=== PATIENT | male | born 1935 | race Caucasian/White ===

== ENCOUNTER 2016-07-26 22:04 | Inpatient (IN) | payer MEDICARE, OTHER ==
--- NOTE | 2016-07-26 22:19 | ERNOTE ---
Abdominal HPI - Narrative Date of Service: 07/26/16 - General Chief Complaint: Abdominal Pain Time Seen by Provider: 07/26/16 22:17 Source: patient - Immun/Allergies/Home Medications Immunizatons: IMMUNIZATION HX Immunizations Up to Date No History of Influenza Vaccine Yes Hx Pneumococcal Vaccination Yes Allergies/Adverse Reactions: Allergies fenofibrate nanocrystallized [From Tricor] Allergy (Verified 07/26/16 22:13) fenofibrate,micronized [From Tricor] Allergy (Verified 07/26/16 22:13) Iodine and Iodide Containing Produc Allergy (Verified 07/26/16 22:13) niacin [From Niaspan Extended-Release] Allergy (Verified 07/26/16 22:13) IVP Dye Allergy (Uncoded 07/26/16 22:13) Home Medications: HOME MEDICATIONS Allopurinol [Zyloprim] 300 mg PO DAILY 09/04/15 [Last Taken Unknown] Aspirin [Aspirin EC] 81 mg PO DAILY 09/04/15 [Last Taken Unknown] Carvedilol [Coreg] 12.5 mg PO BID 09/04/15 [Last Taken Unknown] Doxazosin Mesylate [Cardura] 4 mg PO HS 09/04/15 [Last Taken Unknown] Levothyroxine Sodium [Synthroid] 75 mcg PO DAILY 09/04/15 [Last Taken Unknown] [place]-3S/Dha/Epa/Fish Oil [[place]-3 Fish Oil 1,200 mg Sfgl] 6 tab PO DAILY [Last Taken Unknown] Valsartan [Diovan] 320 mg PO DAILY 09/04/15 [Last Taken Unknown] amLODIPine BESYLATE [Norvasc] 5 mg PO BID 09/04/15 [Last Taken Unknown] Cholecalciferol (Vitamin D3) [Vitamin D3] 2,000 unit PO DAILY #30 capsule [Last Taken Unknown] Simethicone [Gas-X] 125 mg PO ACHS PRN #120 cap 09/07/15 [Last Taken Unknown] Acetaminophen [Tylenol] 650 mg PO TID PRN 11/01/15 [Last Taken Unknown] - History of Present Illness Narrative: PT STATES HE BEGAN WITH LLQ ABD PAIN ABOUT 1700 TODAY. 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 HE WAS NAUSEATED BUT NO VOMITING UNTIL HE GOT HERE. AFTER VOMITING HERE HE SAYS HIS PAIN IS IMPROVED, NOT GONE. HE SAYS HE WAS ADMITTED HERE TWICE IN THE PAST YEAR , HERE, FOR BOWEL OBSTRUCTION EPISODES AND SAYS THIS SEEMS SIMILAR. NO HX OF ANY FEVER. NO KNOWN CONTACTS. HE LIVES ALONE. HE TRIED 3 , 325 ASA, AND 2 GAS- X TABLETS WITH NO RELIEF. HE LAST ATE ABOUT NOON. HE DOES THINK HE IS A LITTLE MORE BLOATED THAN NORMAL. HE LAST SAW PCP 1 WEEK AGO AND THEY STOPPED HIS K+, AND STARTED A NEW MED, HE IS NOT SURE WHAT BUT THE PHARMACIST SAYS IT IS A WATER PILL. HE CAN NOT SAY WHY THE CHANGES WERE MADE. Timing: constant Quality: moderate, fullness Modifying Factors - (Improves): Present: vomiting Review of Systems - Review of Systems Constitutional: Present: See HPI EYE: Present: no symptoms reported ENT: Present: no symptoms reported Respiratory: Present: no symptoms reported Cardiology: Present: no symptoms reported Gastrointestinal/Abdominal: Present: See HPI, nausea, vomiting, abdominal pain. Absent: constipation Genitourinary: Present: no symptoms reported Musculoskeletal: Present: no symptoms reported Skin: Present: no symptoms reported Neurological: Present: no symptoms reported Endocrine: Present: no symptoms reported Hematologic/Lymphatic: Present: no symptoms reported Psych: Present: no symptoms reported All Other Systems: All systems neg except as marked - Patient's Past Medical History Patient History - Medical: Cataracts, Hypothyroidism, Renal Disease, Rheumatoid Arthritis, Other - PHX OF PANACREATITIS AND SBO. Patient History - Cardiac/Respiratory: Hypertension Patient History - Cancer: No Hx of Cancer Patient History - Surgical Procedures: Appendectomy, Colon Resection, Colonoscopy Patient History - Other: None - Family History Mother Family History - Medical: , Diabetes Type 2 Insulin Dependent Family History - Cardiac/Respiratory: No pertinent hx Father Family History - Medical: , No pertinent hx Family History - Cardiac/Respiratory: CHF - Social History Living Situations: home Abuse History: No History of abuse Psych History: No pertinent hx Does anyone smoke in the home?: No Smoking Status: Former smoker Have you smoked in the past 12 months: No Alcohol Use: none Drug Use: none - Immunizations Immunizations Up to Date: No Hx Pneumococcal Vaccination: Yes History of Influenza Vaccine: Yes Physical Exam - Physical Exam General Appearance: Present: alert, mild distress - NAUSEA AND ABDOMINAL BLOATING WITH PRESSURE PAIN Neck: Present: normal inspection, nontender Respiratory: Present: no respiratory distress, normal breath sounds, no accessory muscle use, chest nontender, lungs clear Cardiovascular/Chest: Present: regular rate, rhythm, no murmur, normal peripheral pulses Gastrointestinal/Abdominal: Present: abnormal bowel sounds - TINKLING, HIGH PITCHED, , distended, guarding - MILDLY IN LLQ. . Absent: rebound Back Exam: Present: normal inspection, normal range of motion, no CVA tenderness , no vertebral tenderness Extremity Exam: Present: normal except - - CHRONIC BILATERAL LOWER LEG PITTING EDEMA , RIGHT > LEFT, WHICH HE SAYS IS NORMAL FOR HIM. Skin Exam: Present: normal color, warm/dry ED Progress - Results and Orders Patient's Lab Results:: I have reviewed the patient's lab results. Results and Orders: WBC = 13.5K, K+ = 3.2, LIPASE = NL, UA WITH S.G. = 1.030 WITH SOME BACT PRESSENT BUT DID NOT TRIGGER AUTOMATIC CULTURE WHICH I WILL ORDER. - Vital Signs Vital Signs: Vital Signs 07/26/16 22:08 Temperature 36.2 C L Pulse Rate 72 Respiratory 20 Rate Blood Pressure 145/74 O2 Sat by Pulse 95 Oximetry - X-Ray X-Ray #1 X-Ray: abdomen - DISTEND BOWEL LOOPS WITH STACKED AIR FLUID LEVEL, NO FREE AIR. SUSPECT SBO Interpretation: Interp. by me X-Ray #2 X-Ray: abdomen Interpretation: Interp. by me - KUB WITH NG TUBE WELL INTO THE STOMACH. - CT/Ultrasound CT/Ultrasound Narrative: CT OF ABD/PELVIS WITH ORAL CONTRAST ( PT ALLERGIC TO IV CONTRAST) = SBO WITH TRANSITIONS IN RLQ SUGGESTING MECHANICAL OBSTRUCTION. NO FREE AIR. - Progress/Reassessment Chief Complaint: Abdominal Pain Progress:: Unchanged - PT HAD SOME VOMITING WITH ORAL CONTRAST SO WAS GIVEN MORE ZOFRAN AND MORPHINE. HE HAS FAIR NG OUTPUT. Plan - Plan Plan: I HAD CALLED DESTINY FINE EARLIER AND SHE ASKED ME TO CONSULT DR STOUT, SURGERY, WHO IS FAMILIAR WITH PT FROM PAST SBO EPISODE. HE REC. DOING A CT WITH CONTRAST AND IF NO COMPLICATIONS ARE EVIDENT HE WOULD BE WILLING TO FOLLOW CONSULT WITH CONSERVATIVE TREATMENT WHICH DID WORK LAST TIME PT HAD SBO. I RELAYED THIS INFORMATION BACK TO DESTINY FINE WHEN THE CT RESULTS RETURNED. Departure - Departure Clinical Impression: Small bowel obstruction Disposition: [facility] Condition: Fair Referrals: Tim Castano MD [Primary Care Provider] -
--- OUTSIDE RECORDS SUMMARY | 2016-07-26 22:29 | XMS REPORT | Continuity of Care Document ---
:1935 Author Organization [facility] ([facility]) Address [place] [address] Phone [phone] Care Team Providers Name Role Phone Tim Castano Primary Care Provider [phone] Source Comments This disclosure is being made pursuant to the Care Everywhere program, applicable federal and state laws, and may not contain all informaitonavailable regarding this patient.[facility] ([facility]) Active Allergies and Adverse Reactions Allergen Noted Date Severity Reactions Comments Iodinated Contrast Media - Oral And Iv 11/27/2015 Angioedema Dye Trichlorex 11/27/2015 OTHER "sore muscles" Current Medications Prescription Sig. Disp. Refills Start Date End Date Status cyanocobalamin (VITAMIN Take 250 mcg by Active B-12) 250 mcg tablet mouth daily. multivitamin Take 1 tablet by Active with minerals ( mouth. Pt. To VITAMIN) tablet take 3 times weekly acetaminophen 650 mg CR Take 650 mg by Active tablet mouth 3 times daily. allopurinol 300 mg tablet Take 300 mg by Active mouth daily. amLODIPine 5 mg tablet Take 5 mg by Active mouth 2 times daily with meals. aspirin 81 mg EC tablet Take 81 mg by Active mouth daily. carvedilol 12.5 mg tablet Take 12.5 mg by Active mouth 2 times daily with meals. cholecalciferol (VITAMIN Take 2,000 Units Active D3) 2,000 unit capsule by mouth daily. doxazosin 4 mg tablet Take 4 mg by Active mouth daily. levothyroxine 75 mcg Take 75 mcg by Active tablet mouth every morning before breakfast. [place]-3 Fatty Acids-Fish Take by mouth Active Oil (FISH OIL) 360-1,200 daily. mg cpDR SIMETHICONE (GAS-X PO) Take by mouth Active before meals and at bedtime. polyethylene Take as directed 4000 mL 0 11/27/2015 Active glycol-electrolyte (NULYTELY) suspension Active Problems Not on file Social History Tobacco Use Types Packs/Day Years Used Date Former Smoker Cigarettes 3 35 Quit: 04/06/1990 Smokeless Tobacco: Never Used Tobacco Cessation:Counseling Given: Yes Comments: Alcohol Use Drinks/Week oz/Week Comments No Last Filed Vital Signs Vital Sign Reading Time Taken Blood Pressure 158/68 11/27/2015 10:05 AM CDT Pulse 67 11/27/2015 10:05 AM CDT Temperature 36.5 C (97.7 F) 11/27/2015 10:05 AM CDT Respiratory Rate - - Height 1.727 m (5' 8") 11/27/2015 10:05 AM CDT Weight 99.1 kg (218 lb 7.6 oz) 11/27/2015 10:05 AM CDT Body Mass Index 33.23 11/27/2015 10:05 AM CDT Oxygen Saturation - - Plan of Care Health Maintenance Due Date Last Done Comments Hepatitis B Vaccine (1 of 3 - Primary Series) 1935 Tdap Vaccine 1944 Lipid Disorder Screening 11/11/1951 Td Vaccine 11/11/1951 Colonoscopy 1983 Zoster Vaccine 1993 Pneumococcal Vaccine (1 of 2 - PCV13) 1998 Influenza Vaccine: Seasonal (#1) 11/27/2015 Results from Last 3 Months Not on file
[2016-07-26] MEDS ORDERED: ONDANSETRON HCL/PF 2 MG/ML VIAL IV ONE (22:52)
[2016-07-26] MEDS ORDERED: MORPHINE SULFATE 2 MG/ML DISP.SYRIN IV ONE (22:54)
[2016-07-26] MEDS ORDERED: MORPHINE SULFATE 2 MG/ML DISP.SYRIN ONE (22:56)
[2016-07-26] MEDS ORDERED: ONDANSETRON HCL/PF 2 MG/ML VIAL ONE (22:56)
[2016-07-26 23:06] LABS: Hematocrit 37.4 % (42.0-52.0); Hemoglobin 12.7 gm/dL (13.5-18.0); Mean Cell Volume 87.6 fl (78-100); Mean Corpuscular Hemoglobin 29.7 pg (27-31); Mean Platelet Volume 9.5 fl (6.0-9.5); Neutrophil % 79.6 % (42-75.0); Platelet Count 214 K/mm3 (150-450); Red Blood Count 4.27 M/mm3 (4.7-6.0); Red Cell Distribution Width 14.9 % (11.5-14.0); White Blood Count 13.8 K/mm3 (4.0-10.5)
[2016-07-26 23:20] LABS: Albumin * 3.2 gm/dl (3.4-5.0); Anion Gap 13.8 mmol/L (6.8-13.8); BUN/Creatinine Ratio 12.6 (9.0-21.6); Bilirubin, Total 0.7 mg/dL (0.0-1.1); Ca. Corrected For Albumin 9.2 mg/dL (8.4-10.2); Calcium * 8.9 mg/dL (7.9-10.9); Carbon Dioxide 23.4 mmol/L (24-32.6); Potassium 3.2 mmol/L (3.4-4.6); Total Protein 6.9 gm/dL (6.2-8.2)
[2016-07-26 23:41] LABS: Urine Bilirubin Negative (NEGATIVE); Urine Blood Negative /ul (NEGATIVE); Urine Ketone Negative (NEGATIVE); Urine Nitrite Negative (NEGATIVE); Urine Protein 30 mg/dL (NEGATIVE); Urine Specific Gravity >=1.030 SP.GR. (1.005-1.030); Urine Urobilinogen Normal (NORMAL)
[2016-07-26] MEDS ORDERED: LIDOCAINE HCL 10 APPL CARTRIDGE ONE (23:50)
[2016-07-26 23:51] LABS: Urine Appearance Clear; Urine Bacteria 3+; Urine Coarse Granular Cast 0-5 /LPF; Urine Color Yellow; Urine Hyaline Cast 0-5 /LPF; Urine RBC None Seen /hpf (0-5); Urine WBC 0-5 /hpf (0-5)
[2016-07-26 23:52] LABS: Urine Mucus Moderate - 2+
[2016-07-27] MEDS ORDERED: DIATRIZOATE MEGLU/DIATRIZO SOD 30 ML BTL ONE (01:34)
[2016-07-27] MEDS ORDERED: MORPHINE SULFATE 2 MG/ML DISP.SYRIN IV ONE (01:44)
[2016-07-27] MEDS ORDERED: MORPHINE SULFATE 2 MG/ML DISP.SYRIN ONE (01:44)
[2016-07-27] MEDS ORDERED: DIATRIZOATE MEGLU/DIATRIZO SOD 30 ML BTL PO ONE (01:48)
[2016-07-27] MEDS ORDERED: ONDANSETRON HCL/PF 2 MG/ML VIAL ONE (02:28)
[2016-07-27] MEDS ORDERED: ONDANSETRON HCL/PF 2 MG/ML VIAL IV ONE (02:29)
--- OUTSIDE RECORDS SUMMARY | 2016-07-27 04:35 | XMS REPORT | Continuity of Care Document ---
:1935 Author Organization [facility] ([facility]) Address [place] [address] Phone [phone] Care Team Providers Name Role Phone Tim Castano Primary Care Provider [phone] Source Comments This disclosure is being made pursuant to the Care Everywhere program, applicable federal and state laws, and may not contain all informaitonavailable regarding this patient.[facility] ([facility]) Active Allergies and Adverse Reactions Allergen Noted [...] Active tablet mouth every morning before breakfast. [place]-3 Fatty Acids-Fish Take by mouth Active Oil [...]
[2016-07-27] MEDS ORDERED: ONDANSETRON HCL/PF 2 MG/ML VIAL IV PRN (05:34)
[2016-07-27] MEDS ORDERED: MORPHINE SULFATE 2 MG/ML DISP.SYRIN IV PRN (05:35)
[2016-07-27] MEDS ORDERED: POTASSIUM CHLORIDE 20 MEQ in DEXTROSE 5%-0.5 NORMAL SALINE 1,000 ML IV PRN (06:17)
--- NOTE | 2016-07-27 07:44 | HP ---
<Massimo Damian - Last Filed: 07/27/16 07:21> Chief Complaint - Chief Complaint Date of Service: 07/27/16 Time of Service: 05:00 Chief Complaint: Abdominal pain History of Present Illness: 80 years old male adm to the hospital with reports of abdominal pain, nausea and vomiting. PMh significant for recurrent small bowel obstruction, hypertension, CKD, crohns disease and gout.Pt stated he had small bowel movement yesterday however that didn't relief his discomfort. 6 months ago he was treated conservatively for small bowel obstruction. In ER CT Abdomen: Consistent with mechanical obstruction, WBC 13.8, hgb 12.7 and K+ 3.2. He was given morphine and zofran for discomfort and had moderate relief. Will adm and do conservative management , NGT to LIS, protonix, pain control and antiemetics. Dr Castorena consulted if s/s not well management with initial treatment approach. Plan of cared discussed with pt he verbalized understanding and agrees. - Patient's Past Medical History Patient History - Medical: Cataracts, Hypothyroidism, Renal Disease, Rheumatoid Arthritis, Other - crohns disease, Gout Patient History - Cardiac/Respiratory: Hypertension, Hyperlipidemia Patient History - Cancer: No Hx of Cancer Patient History - Surgical Procedures: Appendectomy, Colon Resection - x2 lyse of adhesion x2, Colonoscopy, Other Patient History - Other: None - Family History Mother Family History - Medical: , Diabetes Type 2 Insulin Dependent Family History - Cardiac/Respiratory: No pertinent hx Father Family History - Medical: , No pertinent hx Family History - Cardiac/Respiratory: CHF - Social History Living Situations: alone Abuse History: No History of abuse Psych History: No pertinent hx Does anyone smoke in the home?: No Smoking Status: Former smoker Have you smoked in the past 12 months: No Smoking Stop Date: 04/28/89 Alcohol Use: none Drug Use: none - Immunizations Immunizations Up to Date: No Hx Pneumococcal Vaccination: Yes History of Influenza Vaccine: Yes Review Of Systems (GEN) - Review of Systems Generalized/Overall Review: Present: No Symptoms Reported EENTM: Present: No Symptoms Reported Respiratory: Present: No Symptoms Reported Cardiac: Present: No Symptoms Reported Abdominal: Present: Nausea, Vomiting, Abdominal Pain Genitourinary: Present: No Symptoms Reported Musculoskeletal: Present: No Symptoms Reported Neurological: Present: No Symptoms Reported Skin: Present: No Symptoms Reported Endocrine: Present: No Symptoms Reported Allergies/Adverse Reactions: Allergies Allergy/AdvReac Type Severity Reaction Status Date / Time fenofibrate nanocrystallized Allergy Verified 07/27/16 05:32 [From Tricor] fenofibrate,micronized Allergy Verified 07/27/16 05:32 [From Tricor] Iodine and Iodide Containing Allergy Verified 07/27/16 05:32 Produc niacin Allergy Verified 07/27/16 05:32 [From Niaspan Extended-Release] IVP Dye Allergy Uncoded 07/27/16 05:32 Home Medications: HOME MEDICATIONS Allopurinol [Zyloprim] 300 mg PO DAILY 09/04/15 [Last Taken Unknown] Aspirin [Aspirin EC] 81 mg PO DAILY 09/04/15 [Last Taken Unknown] Carvedilol [Coreg] 12.5 mg PO BID 09/04/15 [Last Taken Unknown] Doxazosin Mesylate [Cardura] 4 mg PO HS 09/04/15 [Last Taken Unknown] Levothyroxine Sodium [Synthroid] 75 mcg PO DAILY 09/04/15 [Last Taken Unknown] [place]-3S/Dha/Epa/Fish Oil [[place]-3 Fish Oil 1,200 mg Sfgl] 6 tab PO DAILY [Last Taken Unknown] Valsartan [Diovan] 320 mg PO DAILY 09/04/15 [Last Taken Unknown] amLODIPine BESYLATE [Norvasc] 5 mg PO BID 09/04/15 [Last Taken Unknown] Cholecalciferol (Vitamin D3) [Vitamin D3] 2,000 unit PO DAILY #30 capsule [Last Taken Unknown] Simethicone [Gas-X] 125 mg PO ACHS PRN #120 cap 09/07/15 [Last Taken Unknown] Acetaminophen [Tylenol] 650 mg PO TID PRN 11/01/15 [Last Taken Unknown] Cyanocobalamin (Vitamin B-12) [Vitamin B-12] 2,000 mcg PO DAILY 07/27/16 [Last Taken Unknown] Spironolactone [Aldactone] 12.5 mg PO DAILY 07/27/16 [Last Taken Unknown] Exam - Exam Vital Signs: Vital Signs - Last Taken Temp 36.5 C 07/27/16 05:05 Pulse 66 07/27/16 05:05 Resp 20 07/27/16 05:05 BP 147/76 07/27/16 05:05 Pulse Ox 96 07/27/16 05:05 Constitutional: Present: Alert, Oriented x3, Cooperative, Well developed, No distress, Elderly, Obese ENT Exam: Present: moist mucous membranes Eye Exam: 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 Neck: Present: full range of motion Back Exam: Present: normal inspection Breasts: Present: Exam deferred Respiratory: Present: chest non-tender, normal breath sounds, no respiratory distress, no accessory muscle use Cardiovascular/Chest: Present: normal peripheral pulses, regular rate, rhythm, no chest tenderness Peripheral Pulses: dorsalis-pedis (R): 3+, dorsalis-pedis (L): 3+ Abdomen: Present: Normal bowel sounds, no rebound tenderness, distended /Rectal: Present: Exam deferred Extremity: Present: normal range of motion Skin Exam: Present: normal color, warm/dry Lymphatic: Present: no adenopathy Neurologic: Present: oriented x 3 Appearance: Present: appropriate appearance Eye contact: Present: cooperative Thoughts: Present: normal thought pattern Diagnostic Studies: Laboratory Results WBC 13.8 K/mm3 (4.0-10.5) H 07/26/16 23:00 RBC 4.27 M/mm3 (4.7-6.0) L 07/26/16 23:00 Hgb 12.7 gm/dL (13.5-18.0) L 07/26/16 23:00 Hct 37.4 % (42.0-52.0) L 07/26/16 23:00 MCV 87.6 fl (78-100) 07/26/16 23:00 MCH 29.7 pg (27-31) 07/26/16 23:00 MCHC 34.0 g/dl (32-36) 07/26/16 23:00 RDW 14.9 % (11.5-14.0) H 07/26/16 23:00 Plt Count 214 K/mm3 (150-450) 07/26/16 23:00 MPV 9.5 fl (6.0-9.5) 07/26/16 23:00 Immature Gran % (Auto) 0.40 % (0.001-0.429) 07/26/16 23:00 Immature Gran # (Auto) 0.05 K/mm3 (0.000-0.0310) H 07/26/16 23:00 Neutrophils % 79.6 % (42-75.0) H 07/26/16 23:00 Lymphocytes % 11.0 % (20-51) L 07/26/16 23:00 Monocytes % 7.1 % (0.0-9) 07/26/16 23:00 Eosinophils % 1.5 % (0.0-3.0) 07/26/16 23:00 Basophils % 0.4 % (0.0-1.0) 07/26/16 23:00 Nucleated RBC % 0.0 k/mm3 (0-1) 07/26/16 23:00 Neutrophils # 11.0 K/mm3 (1.3-6.0) H 07/26/16 23:00 Lymphocytes # 1.5 k/mm3 (1.5-3.5) 07/26/16 23:00 Monocytes # 1.0 k/mm3 (0.0-1.0) 07/26/16 23:00 Eosinophils # 0.2 k/mm3 (0.0-0.7) 07/26/16 23:00 Absolute Basophils 0.1 k/mm3 (0.0-0.1) 07/26/16 23:00 Sodium 140 mmol/L (132-142) 07/26/16 23:00 Plasma Sodium 141 mmol/L (130-142) 07/26/16 23:00 Potassium 3.2 mmol/L (3.4-4.6) L 07/26/16 23:00 Chloride 106 mmol/L (97-106) 07/26/16 23:00 Carbon Dioxide 23.4 mmol/L (24-32.6) L 07/26/16 23:00 Anion Gap 13.8 mmol/L (6.8-13.8) 07/26/16 23:00 BUN 14 mg/dL (6-23) 07/26/16 23:00 Creatinine 1.11 mg/dL (0.4-1.4) 07/26/16 23:00 Est GFR (Non-Af Amer) 67 mL/min (60-130) 07/26/16 23:00 BUN/Creatinine Ratio 12.6 (9.0-21.6) 07/26/16 23:00 Random Glucose 144 mg/dL (70-110) H 07/26/16 23:00 Calcium 8.9 mg/dL (7.9-10.9) 07/26/16 23:00 Calcium Adj for Albumin 9.2 mg/dL (8.4-10.2) 07/26/16 23:00 Total Bilirubin 0.7 mg/dL (0.0-1.1) 07/26/16 23:00 AST 22 U/L (0-48) 07/26/16 23:00 ALT 23 U/L (19-67) 07/26/16 23:00 Alkaline Phosphatase 66 U/L (50-170) 07/26/16 23:00 Total Protein 6.9 gm/dL (6.2-8.2) 07/26/16 23:00 Albumin 3.2 gm/dl (3.4-5.0) L 07/26/16 23:00 Lipase 154 U/L (73-393) 07/26/16 23:00 Urine Color Yellow 07/26/16 23:29 Urine Appearance Clear 07/26/16 23:29 Urine pH 6.0 pH (5.0-7.0) 07/26/16 23:29 Ur Specific [place] >=1.030 SP.GR. (1.005-1.030) 07/26/16 23:29 Urine Protein 30 mg/dL (NEGATIVE) H 07/26/16 23:29 Urine Glucose (UA) Negative mg/dL (NEGATIVE) 07/26/16 23:29 Urine Ketones Negative mg/dL (NEGATIVE) 07/26/16 23:29 Urine Blood Negative /ul (NEGATIVE) 07/26/16 23:29 Urine Nitrate Negative (NEGATIVE) 07/26/16 23:29 Urine Bilirubin Negative mg/dl (NEGATIVE) 07/26/16 23:29 Prot Sulfosalicylic Acd 1+ mg/dL (0) 07/26/16 23:29 Urine Urobilinogen Normal EU/dl (NORMAL) 07/26/16 23:29 Ur Leukocyte Esterase Negative /ul (NEGATIVE) 07/26/16 23:29 Urine RBC None seen /hpf (0-5) 07/26/16 23:29 Urine WBC 0-5 /hpf (0-5) 07/26/16 23:29 Ur Epithelial Cells Trace /hpf (0-5) 07/26/16 23:29 Urine Bacteria 3+ (NONE) H 07/26/16 23:29 Hyaline Casts 0-5 /LPF (NONE) H 07/26/16 23:29 Coarse Granular Casts 0-5 /LPF (NONE) H 07/26/16 23:29 Urine Mucus Moderate - 2+ (NONE) H 07/26/16 23:29 Urine Culture Comments No culture indicated 07/26/16 23:29 Assessment/Plan - Narrative Narrative: Recurrent small bowel obstruction- secondary to multiple abdominal surgery and history of crohns disease October 2015 S/P partial small bowel obstruction that resolved with conservative management. NGT to LIS GI ppx: protonix Zofran and morphine PRN Keep NPO and Dr Castorena was consulted from ER Continue with IVF and supplemented potassium Last bowel movement 07/26/16 Hypertension-stable On adm BP 118/68 continue to monitor Vital signs Crohns Disease Plan same as #1 Abdominal pain Plan same as #1 Nausea and vomiting Zofran and keep NPO Code status: DNR VTE ppx: SCD and ambulate GI ppx : Protonix Anticipate discharge home 1-3 days Time 40 minutes and previous records reviewed. - Assessment/Plan (1) Small bowel obstruction Problem: Acute (2) Crohns disease Problem: Chronic (3) HTN (hypertension) Problem: Chronic (4) Hyperlipidemia Problem: Chronic <Natanael Park - Last Filed: 07/27/16 10:28> Immunizations: IMMUNIZATION HX Immunizations Up to Date No History of Influenza Vaccine Yes Hx Pneumococcal Vaccination Yes Exam - Exam Vital Signs: Vital Signs - Last Taken Temp 36.5 C 07/27/16 05:05 Pulse 66 07/27/16 05:05 Resp 20 07/27/16 05:05 BP 147/76 07/27/16 05:05 Pulse Ox 96 07/27/16 05:05 Diagnostic Studies: Laboratory Results WBC 13.8 K/mm3 (4.0-10.5) H 07/26/16 23:00 RBC 4.27 M/mm3 (4.7-6.0) L 07/26/16 23:00 Hgb 12.7 gm/dL (13.5-18.0) L 07/26/16 23:00 Hct 37.4 % (42.0-52.0) L 07/26/16 23:00 MCV 87.6 fl (78-100) 07/26/16 23:00 MCH 29.7 pg (27-31) 07/26/16 23:00 MCHC 34.0 g/dl (32-36) 07/26/16 23:00 RDW 14.9 % (11.5-14.0) H 07/26/16 23:00 Plt Count 214 K/mm3 (150-450) 07/26/16 23:00 MPV 9.5 fl (6.0-9.5) 07/26/16 23:00 Immature Gran % (Auto) 0.40 % (0.001-0.429) 07/26/16 23:00 Immature Gran # (Auto) 0.05 K/mm3 (0.000-0.0310) H 07/26/16 23:00 Neutrophils % 79.6 % (42-75.0) H 07/26/16 23:00 Lymphocytes % 11.0 % (20-51) L 07/26/16 23:00 Monocytes % 7.1 % (0.0-9) 07/26/16 23:00 Eosinophils % 1.5 % (0.0-3.0) 07/26/16 23:00 Basophils % 0.4 % (0.0-1.0) 07/26/16 23:00 Nucleated RBC % 0.0 k/mm3 (0-1) 07/26/16 23:00 Neutrophils # 11.0 K/mm3 (1.3-6.0) H 07/26/16 23:00 Lymphocytes # 1.5 k/mm3 (1.5-3.5) 07/26/16 23:00 Monocytes # 1.0 k/mm3 (0.0-1.0) 07/26/16 23:00 Eosinophils # 0.2 k/mm3 (0.0-0.7) 07/26/16 23:00 Absolute Basophils 0.1 k/mm3 (0.0-0.1) 07/26/16 23:00 Sodium 140 mmol/L (132-142) 07/26/16 23:00 Plasma Sodium 141 mmol/L (130-142) 07/26/16 23:00 Potassium 3.2 mmol/L (3.4-4.6) L 07/26/16 23:00 Chloride 106 mmol/L (97-106) 07/26/16 23:00 Carbon Dioxide 23.4 mmol/L (24-32.6) L 07/26/16 23:00 Anion Gap 13.8 mmol/L (6.8-13.8) 07/26/16 23:00 BUN 14 mg/dL (6-23) 07/26/16 23:00 Creatinine 1.11 mg/dL (0.4-1.4) 07/26/16 23:00 Est GFR (Non-Af Amer) 67 mL/min (60-130) 07/26/16 23:00 BUN/Creatinine Ratio 12.6 (9.0-21.6) 07/26/16 23:00 Random Glucose 144 mg/dL (70-110) H 07/26/16 23:00 Calcium 8.9 mg/dL (7.9-10.9) 07/26/16 23:00 Calcium Adj for Albumin 9.2 mg/dL (8.4-10.2) 07/26/16 23:00 Total Bilirubin 0.7 mg/dL (0.0-1.1) 07/26/16 23:00 AST 22 U/L (0-48) 07/26/16 23:00 ALT 23 U/L (19-67) 07/26/16 23:00 Alkaline Phosphatase 66 U/L (50-170) 07/26/16 23:00 Total Protein 6.9 gm/dL (6.2-8.2) 07/26/16 23:00 Albumin 3.2 gm/dl (3.4-5.0) L 07/26/16 23:00 Lipase 154 U/L (73-393) 07/26/16 23:00 Urine Color Yellow 07/26/16 23:29 Urine Appearance Clear 07/26/16 23:29 Urine pH 6.0 pH (5.0-7.0) 07/26/16 23:29 Ur Specific [place] >=1.030 SP.GR. (1.005-1.030) 07/26/16 23:29 Urine Protein 30 mg/dL (NEGATIVE) H 07/26/16 23:29 Urine Glucose (UA) Negative mg/dL (NEGATIVE) 07/26/16 23:29 Urine Ketones Negative mg/dL (NEGATIVE) 07/26/16 23:29 Urine Blood Negative /ul (NEGATIVE) 07/26/16 23:29 Urine Nitrate Negative (NEGATIVE) 07/26/16 23: Urine Bilirubin Negative mg/dl (NEGATIVE) 07/26/16 23:29 Prot Sulfosalicylic Acd 1+ mg/dL (0) 07/26/16 23:29 Urine Urobilinogen Normal EU/dl (NORMAL) 07/26/16 23:29 Ur Leukocyte Esterase Negative /ul (NEGATIVE) 07/26/16 23:29 Urine RBC None seen /hpf (0-5) 07/26/16 23:29 Urine WBC 0-5 /hpf (0-5) 07/26/16 23:29 Ur Epithelial Cells Trace /hpf (0-5) 07/26/16 23:29 Urine Bacteria 3+ (NONE) H 07/26/16 23:29 Hyaline Casts 0-5 /LPF (NONE) H 07/26/16 23:29 Coarse Granular Casts 0-5 /LPF (NONE) H 07/26/16 23:29 Urine Mucus Moderate - 2+ (NONE) H 07/26/16 23:29 Urine Culture Comments No culture indicated 07/26/16 23:29 Assessment/Plan - Narrative Narrative: Record reviewed, patient examined. The patient is much more comfortable with his NG tube. We will follow labs, and continue with the NG for the time being. He expresses no additional needs at the present time. I directed all of the nurse practitioner's care for this patient.
[2016-07-27] MEDS: PANTOPRAZOLE SODIUM 40 MG in NORMAL SALINE 100 ML IV SCH (07:55)
[2016-07-27] MEDS ORDERED: POTASSIUM CHLORIDE 20 MEQ in DEXTROSE 5%-0.5 NORMAL SALINE 1,000 ML IV SCH (08:30)
[2016-07-27] MEDS: MORPHINE SULFATE 2 MG/ML DISP.SYRIN IV PRN ×4 (09:05→20:44)
[2016-07-27] MEDS: POTASSIUM CHLORIDE 40 MEQ in DEXTROSE 5%-0.5 NORMAL SALINE 1,000 ML IV SCH ×2 (09:46→17:34)
[2016-07-28] MEDS: MORPHINE SULFATE 2 MG/ML DISP.SYRIN IV PRN (00:12)
[2016-07-28] MEDS: POTASSIUM CHLORIDE 40 MEQ in DEXTROSE 5%-0.5 NORMAL SALINE 1,000 ML IV SCH ×3 (01:39→18:50)
[2016-07-28 06:06] LABS: Hematocrit 34.4 % (42.0-52.0); Hemoglobin 11.2 gm/dL (13.5-18.0); Mean Cell Volume 91.2 fl (78-100); Mean Corpuscular Hemoglobin 29.7 pg (27-31); Mean Corpuscular Hgb Conc 32.6 g/dl (32-36); Mean Platelet Volume 10.1 fl (6.0-9.5); Neutrophil # 6.1 K/mm3 (1.3-6.0); Neutrophil % 63.3 % (42-75.0); Platelet Count 193 K/mm3 (150-450); Red Blood Count 3.77 M/mm3 (4.7-6.0); Red Cell Distribution Width 15.6 % (11.5-14.0); White Blood Count 9.7 K/mm3 (4.0-10.5)
[2016-07-28 06:24] LABS: Albumin * 2.7 gm/dl (3.4-5.0); Anion Gap 12.4 mmol/L (6.8-13.8); BUN/Creatinine Ratio 10.9 (9.0-21.6); Bilirubin, Total 0.6 mg/dL (0.0-1.1); Ca. Corrected For Albumin 8.8 mg/dL (8.4-10.2); Calcium * 8.1 mg/dL (7.9-10.9); Carbon Dioxide 25.6 mmol/L (24-32.6); Total Protein 6.2 gm/dL (6.2-8.2)
[2016-07-28] MEDS: PANTOPRAZOLE SODIUM 40 MG in NORMAL SALINE 100 ML IV SCH (07:42)
--- NOTE | 2016-07-28 11:28 | PN ---
Subjective - Date and Time Seen Date: 07/28/16 Time: 07:10 Subjective Narrative: Passing gas per rectum. No abdominal pain or distension. No nausea. Objective - Review of Systems Generalized/Overall Review: Reports: No Symptoms Reported EENTM: Reports: No Symptoms Reported Respiratory: Reports: No Symptoms Reported Cardiac: Reports: No Symptoms Reported Abdominal: Reports: No Symptoms Reported Genitourinary Symptoms: Reports: No Symptoms Reported Musculoskeletal Complaints: Reports: No Symptoms Reported Neurological: Reports: No Symptoms Reported Skin: Reports: No Symptoms Reported Endocrine: Reports: No Symptoms Reported Misc: All systems neg except as marked - Vitals Vitals: Last Vital Signs Selected Entries 07/28/16 06:49 Temperature 37 C Temperature Oral Source Pulse Rate 82 Respiratory 20 Rate Blood Pressure 144/58 Blood Pressure Supine Position O2 Sat by Pulse 92 Oximetry Oxygen Delivery Room Air Method Oxygen Flow 0 Rate - Abnormal Lab Findings Abnormal Lab Findings: Abnormal Lab Results 07/28/16 07/28/16 Range/Units 05:15 05:15 RBC 3.77 L (4.7-6.0) M/mm3 Hgb 11.2 L (13.5-18.0) gm/dL Hct 34.4 L (42.0-52.0) % RDW 15.6 H (11.5-14.0) % MPV 10.1 H (6.0-9.5) fl Immature Gran # (Auto) 0.04 H (0.000-0.0310) K/mm3 Monocytes % 11.0 H (0.0-9) % Neutrophils # 6.1 H (1.3-6.0) K/mm3 Monocytes # 1.1 H (0.0-1.0) k/mm3 Chloride 108 H (97-106) mmol/L Random Glucose 117 H (70-110) mg/dL ALT 18 L (19-67) U/L Albumin 2.7 L (3.4-5.0) gm/dl - Exam Constitutional: Present: Alert, Oriented x3, Cooperative, Well developed, Well nourished, No distress ENT Exam: Present: normal ENT inspection, hard of hearing Neck: Present: normal inspection Respiratory: Present: lungs clear, no respiratory distress Cardiovascular/Chest: Present: normal peripheral pulses, regular rate, rhythm, no murmur Abdomen: Present: Normal bowel sounds, soft, nontender, nondistended, no rebound tenderness, no hepatospenomegaly, no masses Extremity: Present: normal inspection, no pedal edema Skin Exam: Present: normal color, warm/dry, no cyanosis Neurologic: Present: alert, oriented x 3 Appearance: Present: appropriate appearance, appropriate insight, neat Eye contact: Present: cooperative, good eye contact, normal speech Thoughts: Present: normal thought pattern Assessment/Plan Plan Narrative: D/C NG. Clear liquids. Ambulate. Follow labs. - Problems/Diagnosis (1) Small bowel obstruction Problem: Acute (2) Crohns disease Problem: Chronic (3) HTN (hypertension) Problem: Chronic Qualifiers: Hypertension type: essential hypertension Qualified Code(s): I10 - Essential (primary) hypertension (4) Hyperlipidemia Problem: Chronic
[2016-07-28] MEDS: DEXTROSE 5%-0.5 NORMAL SALINE 1,000 ML IV PRN (18:18)
[2016-07-29] MEDS: DEXTROSE 5%-0.5 NORMAL SALINE 1,000 ML IV PRN ×3 (02:23→20:23)
[2016-07-29] MEDS ORDERED: ACETAMINOPHEN 325 MG TABLET PO PRN (07:12)
[2016-07-29] MEDS ORDERED: SIMETHICONE 80 MG TAB.CHEW PO PRN (07:12)
[2016-07-29] MEDS: PANTOPRAZOLE SODIUM 40 MG in NORMAL SALINE 100 ML IV SCH (07:42)
[2016-07-29] MEDS: LEVOTHYROXINE SODIUM 75 MCG TABLET PO SCH (07:46)
[2016-07-29] MEDS ORDERED: [UNRECOGNIZED DRUG - OTHER] PO SCH (09:00)
[2016-07-29] MEDS ORDERED: SPIRONOLACTONE 25 MG TABLET PO SCH (09:00)
[2016-07-29] MEDS ORDERED: FISH OIL PO SCH (09:00)
[2016-07-29 09:28] LABS: Magnesium 1.5 mg/dL (1.2-2.8); Phosphorus 2.2 mg/dL (2.2-4.2)
[2016-07-29] MEDS: amLODIPine BESYLATE 5 MG TABLET PO SCH ×2 (09:28→20:21)
[2016-07-29] MEDS: LOSARTAN POTASSIUM 50 MG TABLET PO SCH (09:28)
[2016-07-29] MEDS: CARVEDILOL 12.5 MG TABLET PO SCH ×2 (09:29→20:20)
[2016-07-29] MEDS: ALLOPURINOL 300 MG TABLET PO SCH (09:29)
--- NOTE | 2016-07-29 13:16 | PN ---
Subjective - Date and Time Seen Date: 07/29/16 Time: 13:15 Subjective Narrative: patient doing better. NG tube out on 07/28/16. On clear liquids which he is tolerating well. Passing gas. Objective - Review of Systems Generalized/Overall Review: Denies: Weakness, Fatigue Respiratory: Denies: Cough, Shortness of Breath Cardiac: Denies: Chest Pain, Edema Abdominal: Denies: Nausea, Vomiting, Abdominal Pain - Vitals Vitals: Last Vital Signs Temp 36.6 C 07/29/16 11:05 Pulse 63 07/29/16 11:05 Resp 20 07/29/16 11:05 BP 153/63 07/29/16 11:05 Pulse Ox 93 07/29/16 11:05 - Abnormal Lab Findings Abnormal Lab Findings: Laboratory Tests 07/28/16 05:15 WBC 9.7 D Hgb 11.2 L Hct 34.4 L Plt Count 193 07/28/16 05:15 Plasma Sodium 142 Potassium 4.0 D Chloride 108 H Carbon Dioxide 25.6 BUN 13 Creatinine 1.19 Est GFR (Non-Af Amer) 62 Random Glucose 117 H Calcium Adj for Albumin 8.8 Phosphorus 2.2 Magnesium 1.5 Total Bilirubin 0.6 AST 19 ALT 18 L Alkaline Phosphatase 52 Total Protein 6.2 Albumin 2.7 L - Exam Constitutional: Present: Elderly, Obese - Alert and oriented 3, cooperative ENT Exam: Present: hard of hearing, moist mucous membranes Respiratory: Present: lungs clear, normal breath sounds. Absent: no respiratory distress Cardiovascular/Chest: Present: regular rate, rhythm, systolic murmur. Absent: tachycardia Abdomen: Present: Normal bowel sounds, soft, nontender, obese, distended. Absent: guarding, rigidity Extremity: Present: normal range of motion - Trace edema Skin Exam: Present: warm/dry, pallor Eye contact: Present: good eye contact, normal speech Assessment/Plan Plan Narrative: 1. Small bowel obstruction: Confirmed by CT scan. On clear liquids. D5NS on 125 mL an hour. [facility]en [facility] and was recommended to have a colonoscopy and possible anastomosis dilatation however the patient did not schedule it due to transport problems. Poor surgical candidate. 2. Crohn's disease: Stable; Off medications for the last 3-4 years[used to be on hydrocortisone on sulfasalazine]. 3. Chronic diarrhea with hypokalemia: On 12.5 of spironolactone[ for hypokalemia and hypertension]. 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 5. Hypertension: Chronic and stable. 6. Other chronic medical problems: Patient has B12 deficiency, hypothyroidism, gout, anemia [both chronic and iron deficiency]which were reviewed and stable.
[2016-07-29] MEDS: DOXAZOSIN MESYLATE 2 MG TABLET PO SCH (20:21)
[2016-07-30] MEDS: DEXTROSE 5%-0.5 NORMAL SALINE 1,000 ML IV PRN (04:28)
[2016-07-30] MEDS: LEVOTHYROXINE SODIUM 75 MCG TABLET PO SCH (07:44)
[2016-07-30] MEDS: PANTOPRAZOLE SODIUM 40 MG in NORMAL SALINE 100 ML IV SCH (07:48)
[2016-07-30] MEDS: CARVEDILOL 12.5 MG TABLET PO SCH ×2 (09:18→20:59)
[2016-07-30] MEDS: LOSARTAN POTASSIUM 50 MG TABLET PO SCH (09:20)
[2016-07-30] MEDS: amLODIPine BESYLATE 5 MG TABLET PO SCH ×2 (09:21→21:01)
[2016-07-30] MEDS: ALLOPURINOL 300 MG TABLET PO SCH (09:22)
--- NOTE | 2016-07-30 13:55 | PN ---
Subjective - Date and Time Seen Date: 07/30/16 Time: 13:42 Subjective Narrative: patient feels better; denies nausea /vomiting/ abdominal pain. Advanced to full liquid diet today which he is tolerating well. Ambulating well with walker. had 2 BM since yestesday. Objective - Review of Systems Generalized/Overall Review: Denies: Weakness, Chills, Fever Respiratory: Denies: Cough, Shortness of Breath Cardiac: Denies: Chest Pain, Edema Abdominal: Denies: Nausea, Vomiting - Vitals Vitals: Vital Signs Temp 36.4 C L 07/30/16 10:48 Pulse 106 H 07/30/16 10:48 Resp 24 H 07/30/16 10:48 BP 137/57 07/30/16 10:48 Pulse Ox 95 07/30/16 06:32 - Exam Constitutional: Present: Elderly, Obese - cooperative; ambulating with walker. ENT Exam: Present: hard of hearing, moist mucous membranes Respiratory: Present: lungs clear, normal breath sounds Cardiovascular/Chest: Present: regular rate, rhythm, systolic murmur. Absent: tachycardia Abdomen: Present: Normal bowel sounds, soft, nontender, obese, distended. Absent: guarding, rigidity Extremity: Present: normal inspection - trace edema Skin Exam: Present: warm/dry, pallor Neurologic: Present: alert, oriented x 3 Appearance: Present: appropriate appearance, appropriate insight Assessment/Plan Plan Narrative: 1. Small bowel obstruction: Confirmed by CT scan on 07/27/2016. Advanced from clear to full liquids today. [facility] and was recommended to have a colonoscopy and possible anastomosis dilatation however the patient did not schedule it due to transport problems. IV fluids D/Mart today. Poor surgical candidate. check labs on 07/31/2016. if tolerating low fiber diet on 07/31/16, will d/c in the evening. 2. Crohn's disease: Stable; Off medications for the last 3-4 years[used to be on hydrocortisone on sulfasalazine]. 3. Chronic diarrhea with hypokalemia: On 12.5 of spironolactone[ for hypokalemia and hypertension]. 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 5. Hypertension: Chronic and stable. 6. Other chronic medical problems: Patient has B12 deficiency, hypothyroidism, gout, anemia [both chronic and iron deficiency]which were reviewed and stable.
[2016-07-30] MEDS: DOXAZOSIN MESYLATE 2 MG TABLET PO SCH (21:00)
[2016-07-31] MEDS: LEVOTHYROXINE SODIUM 75 MCG TABLET PO SCH (06:30)
[2016-07-31 08:19] LABS: Anion Gap 12.6 mmol/L (6.8-13.8); BUN/Creatinine Ratio 4.9 (9.0-21.6); Bilirubin, Total 0.7 mg/dL (0.0-1.1); Ca. Corrected For Albumin 9.1 mg/dL (8.4-10.2); Calcium * 8.6 mg/dL (7.9-10.9); Carbon Dioxide 28.5 mmol/L (24-32.6); Potassium 3.1 mmol/L (3.4-4.6); Total Protein 6.7 gm/dL (6.2-8.2)
[2016-07-31] MEDS: CARVEDILOL 12.5 MG TABLET PO SCH ×2 (08:19→21:00)
[2016-07-31] MEDS: LOSARTAN POTASSIUM 50 MG TABLET PO SCH (08:19)
[2016-07-31] MEDS: amLODIPine BESYLATE 5 MG TABLET PO SCH ×2 (08:19→21:00)
[2016-07-31] MEDS: ALLOPURINOL 300 MG TABLET PO SCH (08:20)
[2016-07-31] MEDS: PANTOPRAZOLE SODIUM 40 MG in NORMAL SALINE 100 ML IV SCH (08:24)
[2016-07-31] MEDS: POTASSIUM CHLORIDE 20 MEQ TABLET.SA PO SCH ×2 (12:48→17:17)
[2016-07-31] MEDS: DOXAZOSIN MESYLATE 2 MG TABLET PO SCH (21:01)
[2016-08-01] MEDS: LEVOTHYROXINE SODIUM 75 MCG TABLET PO SCH (07:01)
[2016-08-01 08:06] VITALS: BP 132/64
[2016-08-01] MEDS: PANTOPRAZOLE SODIUM 40 MG in NORMAL SALINE 100 ML IV SCH (08:06)
[2016-08-01] MEDS: ALLOPURINOL 300 MG TABLET PO SCH (08:07)
[2016-08-01] MEDS: LOSARTAN POTASSIUM 50 MG TABLET PO SCH (08:07)
[2016-08-01] MEDS: amLODIPine BESYLATE 5 MG TABLET PO SCH (08:07)
[2016-08-01] MEDS: CARVEDILOL 12.5 MG TABLET PO SCH (08:07)
[2016-08-01] MEDS ORDERED: SPIRONOLACTONE 25 MG TABLET PO SCH (09:00)
--- NOTE | 2016-08-01 09:11 | DS ---
(1) Chronic diarrhea Problem: Chronic (2) Hypokalemia Problem: Acute (3) B12 deficiency Problem: Chronic (4) Hypothyroid Problem: Chronic Qualifiers: Hypothyroidism type: acquired Qualified Code(s): E03.9 - Hypothyroidism, unspecified (5) Gout Problem: Chronic Qualifiers: Gout site: unspecified site Gout etiology: unspecified cause Chronicity: chronic Presence of tophus: with tophus Qualified Code(s): M1A.9XX1 - Chronic gout, unspecified, with tophus (tophi) (6) Small bowel obstruction Problem: Acute (7) Anemia Problem: Chronic Qualifiers: Anemia type: unspecified type Qualified Code(s): D64.9 - Anemia, unspecified (8) Crohns disease Problem: Chronic Qualifiers: Gastrointestinal tract location: unspecified location Digestive disease complication type: unspecified complication Qualified Code(s): K50.919 - Crohn 's disease, unspecified, with unspecified complications (9) HTN (hypertension) Problem: Chronic Qualifiers: Hypertension type: essential hypertension Qualified Code(s): I10 - Essential (primary) hypertension Description of Stay: Date of admission: 07/27/16 Date of discharge: 08/01/16 Procedures done: CT abdomen/pelvis (07/27/12) IMPRESSION: 1. CT findings consistent with mechanical small bowel obstruction, with transition point seen at the distal ileum just proximal to the terminal ileum as discussed above, in the right lower quadrant. 2. Enteric tube with distal tip within the fundus of the stomach. 3. No evidence for renal stones or obstructive uropathy. 4. Somewhat distended appearance of the gallbladder. Correlate clinically. 5. Prominence of the periportal region of the liver as discussed above. Clinical correlation advised. 6. Extensive diverticular outpouchings of the colon without evidence for acute diverticulitis. 7. 6 mm right middle lobe pulmonary nodule, stable since 09/02/2015. Recommend follow-up chest CT in 6 months. Description of Stay: Hamilton is an 80 year old male who was admitted with abdominal pain, nausea and vomiting. CT of the abdomen and pelvis was c/w small bowel obstruction. NG tube was placed to LIS. patient did well overnight. General surgery was consulted and followed the patient during their stay, conservative management was recommended. patient was advanced to full liquid diet on 07/30/16 and then was able to be discharged on 08/01/16. Procedures Performed: none Discharge Disposition: Home self care Disposition: Home self-care Condition: Undetermined Discharge Activity: Activity as tolerated Discharge Diet: Low fat/chol, Low Fiber, Other - be sure to drink enough water; cut food into small bites Referrals: Tim Castano MD [Primary Care Provider] - Problem Oriented Discharge Instructions to Patient/Family: Small Bowel Obstruction, [id number] Additional Patient Instructions (free text): Follow up with Dr. Castano in 2-3 weeks on July at 1:00 PM Be sure to drink enough water, cut food into little bites. Complete Home Medications List: Complete Home Medication List: Allopurinol [Zyloprim] 300 mg PO DAILY 09/04/15 Aspirin [Aspirin EC] 81 mg PO DAILY 09/04/15 Carvedilol [Coreg] 12.5 mg PO BID 09/04/15 Doxazosin Mesylate [Cardura] 4 mg PO HS 09/04/15 Levothyroxine Sodium [Synthroid] 75 mcg PO DAILY 09/04/15 Liberty-3S/Dha/Epa/Fish Oil [Liberty-3 Fish Oil 1,200 mg Sfgl] 6 tab PO DAILY Valsartan [Diovan] 320 mg PO DAILY 09/04/15 amLODIPine BESYLATE [Norvasc] 5 mg PO BID 09/04/15 Cholecalciferol (Vitamin D3) [Vitamin D3] 2,000 unit PO DAILY #30 capsule Simethicone [Gas-X] 125 mg PO ACHS PRN #120 cap 09/07/15 Acetaminophen [Tylenol] 650 mg PO TID PRN 11/01/15 Cyanocobalamin (Vitamin B-12) [Vitamin B-12] 2,000 mcg PO DAILY 07/27/16 Spironolactone [Aldactone] 12.5 mg PO DAILY 07/27/16 Spironolactone [Aldactone] 12.5 mg PO DAILY tablet 08/01/16
[2016-08-01] MEDS: POTASSIUM CHLORIDE 20 MEQ TABLET.SA PO SCH (12:09)
--- NOTE | 2016-08-11 12:48 | CONS ---
[facility] - General Date of Service: 07/29/16 Source: patient, RN/MD, RN notes reviewed, old records Exam Limitations: no limitations - History of Present Illness Initial Comments: The patient is an 80-year-old male who presented with abdominal distention and vomiting. Initial x-rays and CT scan suggested distal small bowel obstruction. He was admitted with nasogastric suction and has had improvement in his pain and distention with a subsequent bowel movement. I seen this patient before in consultation when he was admitted in October 2015 with small bowel obstruction. At that time he had a similar picture on CT, with a transition zone in the right lower quadrant just before a segment of decompressed distal small intestine before it emptied into the colon. His obstruction resolved with nasogastric decompression. Following that admission he was referred to the [facility] and [facility] where he was seen in November 2015. At that time the plan was for a colonoscopy with possible balloon dilation of the distal small bowel. The patient was concerned about transportation after drinking a colon prep and so did not present for that evaluation. His past surgical history is remarkable for appendectomy in 1958 or 1959. He apparently had an additional operation for small bowel obstruction, and then a resection for Crohn's disease in 1963. 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 Since that time he has had chronic abdominal distention with episodic obstipation. Typically he will then have a large bowel movement and the problem resolves. He is currently feeling much better, and although his abdomen is still distended he states he is back to baseline. Associated Symptoms: other - He has had no fever or chills. His abdomen currently does not hurt if he coughs Allergies/Adverse Reactions: Allergies fenofibrate nanocrystallized [From Tricor] Allergy (Verified 07/27/16 05:32) fenofibrate,micronized [From Tricor] Allergy (Verified 07/27/16 05:32) Iodine and Iodide Containing Produc Allergy (Verified 07/27/16 05:32) niacin [From Niaspan Extended-Release] Allergy (Verified 07/27/16 05:32) IVP Dye Allergy (Uncoded 07/27/16 05:32) Home Medications: Home Medications Medication Instructions Recorded Last Taken Allopurinol [Zyloprim] 300 mg PO DAILY 09/04/15 Unknown Aspirin [Aspirin EC] 81 mg PO DAILY 09/04/15 Unknown Carvedilol [Coreg] 12.5 mg PO BID 09/04/15 Unknown Doxazosin Mesylate [Cardura] 4 mg PO HS 09/04/15 Unknown Levothyroxine Sodium [Synthroid] 75 mcg PO DAILY 09/04/15 Unknown Orient-3S/Dha/Epa/Fish Oil [Orient-3 6 tab PO DAILY 09/04/15 Unknown Fish Oil 1,200 mg Sfgl] Valsartan [Diovan] 320 mg PO DAILY 09/04/15 Unknown amLODIPine BESYLATE [Norvasc] 5 mg PO BID 09/04/15 Unknown Acetaminophen [Tylenol] 650 mg PO TID PRN 11/01/15 Unknown Cyanocobalamin (Vitamin B-12) 2,000 mcg PO DAILY 07/27/16 Unknown [Vitamin B-12] Spironolactone [Aldactone] 12.5 mg PO DAILY 07/27/16 Unknown - Patient's Past Medical History Patient History - Medical: Cataracts, Hypothyroidism, Renal Disease, Rheumatoid Arthritis, Other - crohns disease, Gout Patient History - Cardiac/Respiratory: Hypertension, Hyperlipidemia Patient History - Cancer: No Hx of Cancer Patient History - Surgical Procedures: Appendectomy, Colon Resection - x2 lyse of adhesion x2, Colonoscopy, Other - Appendectomy in 1958 or 1959. Possible subsequent reexploration for lysis of adhesions. Small bowel resection for Crohn's disease in 1963 with reexploration in 1980. There was apparently an enterocutaneous small bowel fistula which drained for a year prior to healing. Patient History - Other: None - Family History Mother Family History - Medical: , Diabetes Type 2 Insulin Dependent Family History - Cardiac/Respiratory: No pertinent hx Father Family History - Medical: , No pertinent hx Family History - Cardiac/Respiratory: CHF - Social History Living Situations: alone Abuse History: No History of abuse Psych History: No pertinent hx Does anyone smoke in the home?: No Smoking Status: Former smoker Have you smoked in the past 12 months: No Smoking Stop Date: 04/28/89 Alcohol Use: none Drug Use: none - Immunizations Immunizations Up to Date: No - influenza 02/10 and pneumonia 02/10 and Zostavax 01/10 [facility] Hx Pneumococcal Vaccination: Yes History of Influenza Vaccine: Yes Procedures CATARAC PHACOEMULS/ASPIR (02/02/02) INSERT LENS AT CATAR EXT (02/02/02) Medications - Medications Current Medications: Allopurinol 300 mg by mouth daily Amlodipine 5 mg by mouth twice a day Carve Tylenol 12.5 mg by mouth twice a day Diovan 320 mg by mouth daily Doxazosyn 4 mg by mouth daily at bedtime Levothyroxine 75 g by mouth daily Orient-3 fish oil by mouth daily Daily vitamin Simethicone, 125 mg before meals and at bedtime Spironolactone 25 mg by mouth daily Vitamin B12 2000 g by mouth daily Aspirin 81 mg by mouth daily Vitamin D 2000 units by mouth daily Arthritis pain reliever 650 mg by mouth daily (These are his home medications) Review of Systems - Review of Systems Generalized/Overall Review: Absent: Chills, Fever EENTM: Present: No Symptoms Reported Respiratory: Present: No Symptoms Reported. Absent: Shortness of Breath Cardiac: Absent: Chest Pain, Palpitations Abdominal: Present: Other - He is distended but less so than when he was admitted. He currently doesn't have pain with cough or movement. He has had a bowel movement Genitourinary: Present: No Symptoms Reported Musculoskeletal: Present: No Symptoms Reported Neurological: Present: No Symptoms Reported Skin: Present: No Symptoms Reported Physical Examination - Exam Vital Signs: Vital Signs - Last Taken Temp 36.6 6:41AM Pulse 68 Resp 20 BP 160/63 Pulse Ox 92 RA O2 Oxygen Delivery Method Room Air Ht 173cm Wt 110.3 BMI 34.6 Constitutional: Present: Alert, Oriented x3, Cooperative, No distress ENT Exam: Present: normal ENT inspection Eye Exam: bilateral eye: normal inspection Neck: Present: normal inspection Respiratory: Present: lungs clear Cardiovascular/Chest: Present: regular rate, rhythm Abdomen: Present: other - He is distended and tympanitic but there is no percussion tenderness. He has healed abdominal incisions. There are no hernias. He has some mild tenderness in the right lower quadrant but no rebound tenderness is elicited /Rectal: Present: Exam deferred Extremity: Present: normal range of motion, normal inspection Skin Exam: Present: normal color Neurologic: Present: manager of construction II-XII nml as tested, no motor/sensory deficits Appearance: Present: appropriate appearance, appropriate insight Eye contact: Present: cooperative, good eye contact, normal speech Thoughts: Present: normal thought pattern - Results and Findings: Narrative: Initial CT scan revealed dilated small bowel loops down to a transition point in the right lower quadrant with a stretch of collapsed small bowel prior to entering the colon. There is no free air or abscess. His subsequent abdominal x-rays have revealed an improvement in the distention. White blood cell count of 13.8 on admission decreased to 9.7 promptly - Assessments/Findings (1) Partial small bowel obstruction Diagnosis(s): The patient has a chronic partial small bowel obstruction with episodic exacerbations. The transition area appears to be in the distal small bowel but above the small bowel colon anastomosis. 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 Whether this represents active Crohn's disease is unclear. He has responded to decompression and currently appears to be unobstructed/ stable. He has multiple risk factors for operation and nonoperative management would be preferable. He has previously been referred to the [facility] for consideration of stricture dilation although this may not be technically possible as the narrow area appears to be above the small bowel colon anastomosis. Having him seen there again may be an option. Currently his diet could be advanced to low residue. Would obtain consultation from dietitian to instruct the patient in low residue diet. Problem: Acute
--- NOTE | 2016-08-27 19:47 | PN ---
Subjective - Date and Time Seen Date: 07/31/16 Time: 08:25 Subjective Narrative: Denies any abdominal discomfort. Able to tolerate oral intake without nausea, vomiting or abdominal pain. Ambulating well. Feels he could go home today without any problems Objective - Review of Systems Generalized/Overall Review: Denies: Weakness, Chills, Fever Respiratory: Denies: Shortness of Breath Cardiac: Denies: Chest Pain, Edema Abdominal: Denies: Nausea, Vomiting - Vitals Vitals: Vital Signs 07/31/16 07:15 Temperature 36.5 C Pulse Rate 62 Resp. Rate 16 Blood Pressure 130/62 O2 Sat 94% RA - Exam Constitutional: Present: Elderly, Obese - in no acute distress. ENT Exam: Present: hearing grossly normal, moist mucous membranes Respiratory: Present: normal breath sounds. Absent: no accessory muscle use Cardiovascular/Chest: Present: regular rate, rhythm Abdomen: Present: Normal bowel sounds, soft, nontender, obese, distended. Absent: guarding, rigidity Skin Exam: Present: warm/dry, pallor Neurologic: Present: other - legally blind RT eye Eye contact: Present: cooperative, good eye contact Assessment/Plan Plan Narrative: 1. Small bowel obstruction: Confirmed by CT scan on 07/27/2016. Patient treated conservatively by keeping him NPO initially and then gradually advancing him from clear to full liquids and then to low fiber diet. Patient is a poor surgical candidate and had been evaluated by surgery at [facility]. Patient was to be discharged today by nurse practitioner, however, she felt it was not communicated to her appropriately and patient ended up staying in the hospital. 2. Crohn's disease: Stable; Off medications for the last 3-4 years[used to be on hydrocortisone and sulfasalazine]. 3. Chronic diarrhea with hypokalemia: On 12.5 of spironolactone[ for hypokalemia and hypertension]. 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 5. Hypertension: Chronic and stable. 6. Other chronic medical problems: Patient has B12 deficiency, hypothyroidism, gout, anemia [both chronic and iron deficiency]which were reviewed and stable.
== END 2016-08-01 13:15 | disposition home or self-care (01) | DRG 389 ==
LOC: ER 22:04 → MS 07-27 04:30
PROVIDERS: ADMIT Nurse Practitioner; ATTEND Internal Medicine
DX: K56.60 Unspecified intestinal obstruction (principal); K50.90 Crohn's disease, unspecified, without complications; D64.9 Anemia, unspecified; I10 Essential (primary) hypertension; E78.5 Hyperlipidemia, unspecified; E03.9 Hypothyroidism, unspecified; Z87.891 Personal history of nicotine dependence

== ENCOUNTER 2017-05-01 12:10 | Emergency (ER) | payer MEDICARE, OTHER ==
--- NOTE | 2017-05-01 12:31 | ERNOTE ---
ER Male HPI Date of Service: 05/01/17 Stated Complaint: CANT PEE, LEGS SWOLLEN ER Male: other - Decreased urine output Time Seen by Provider: 05/01/17 12:21 Source: patient, RN notes reviewed, past records Exam Limitations: no limitations Immunizations: IMMUNIZATION HX Immunizations Up to Date No: influenza 02/10 and pneumonia 02/10 and Z[facility]avax 01/10 [facility] History of Influenza Vaccine Yes Hx Pneumococcal Vaccination Yes Allergies/Adverse Reactions: Allergies fenofibrate nanocrystallized [From Tricor] Allergy (Verified 05/01/17 12:18) fenofibrate,micronized [From Tricor] Allergy (Verified 05/01/17 12:18) Iodine and Iodide Containing Produc Allergy (Verified 05/01/17 12:18) niacin [From Niaspan Extended-Release] Allergy (Verified 05/01/17 12:18) IVP Dye Allergy (Uncoded 05/01/17 12:18) Home Medications: HOME MEDICATIONS Allopurinol [Zyloprim] 300 mg PO DAILY 09/04/15 [Last Taken Unknown] Aspirin [Aspirin EC] 81 mg PO DAILY 09/04/15 [Last Taken Unknown] Carvedilol [Coreg] 12.5 mg PO BID 09/04/15 [Last Taken Unknown] Doxazosin Mesylate [Cardura] 4 mg PO HS 09/04/15 [Last Taken Unknown] Levothyroxine Sodium [Synthroid] 75 mcg PO DAILY 09/04/15 [Last Taken Unknown] [place]-3S/Dha/Epa/Fish Oil [[place]-3 Fish Oil 1,200 mg Sfgl] 6 tab PO DAILY [Last Taken Unknown] Valsartan [Diovan] 320 mg PO DAILY 09/04/15 [Last Taken Unknown] amLODIPine BESYLATE [Norvasc] 5 mg PO BID 09/04/15 [Last Taken Unknown] Simethicone [Gas-X] 125 mg PO ACHS PRN #120 cap 09/07/15 [Last Taken Unknown] Acetaminophen [Tylenol] 650 mg PO TID PRN 11/01/15 [Last Taken Unknown] Cyanocobalamin (Vitamin B-12) [Vitamin B-12] 2,000 mcg PO DAILY 07/27/16 [Last Taken Unknown] Spironolactone [Aldactone] 12.5 mg PO DAILY tablet 08/01/16 [Last Taken Unknown ] - Pain Score Pain Score #1 Pain Score: 0 - History of Present Illness Narrative: 81 year old male ambulatory to the ED for a decreased urine output and swelling in his legs and feet. The swelling has been ongoing for about a year. He reports that it might be a little worse today than usual. He reports not having any difficulty urinating yesterday, but is only able to go in small amounts today. He reports that he was diagnosed with BPH several years ago and has been on Doxazosin since. Date (Duration): 05/01/17 Prior Treatment: Absent: recently seen Review of Systems - Review of Systems Constitutional: Absent: recent illness, fever, malaise EYE: Present: no symptoms reported ENT: Present: no symptoms reported Respiratory: Absent: shortness of breath, cough Cardiology: Present: edema. Absent: chest pain, claudication Gastrointestinal/Abdominal: Present: diarrhea - chronic. Absent: nausea, vomiting, abdominal pain, drinking less Genitourinary: Present: frequency, decreased urinary output. Absent: dysuria, hematuria Musculoskeletal: Present: no symptoms reported Skin: Absent: rash, lesions Neurological: Absent: headache, dizziness/light-headedness Endocrine: Present: no symptoms reported Hematologic/Lymphatic: Present: no symptoms reported Psych: Present: no symptoms reported - Patient's Past Medical History Patient History - Medical: Cataracts, Hypothyroidism, Renal Disease, Rheumatoid Arthritis, Other Patient History - Cardiac/Respiratory: Hypertension, Hyperlipidemia Patient History - Cancer: No Hx of Cancer Patient History - Surgical Procedures: Appendectomy, Colon Resection, Colonoscopy, Other Patient History - Other: None - Family History Mother Family History - Medical: , Diabetes Type 2 Insulin Dependent Family History - Cardiac/Respiratory: No pertinent hx Father Family History - Medical: , No pertinent hx Family History - Cardiac/Respiratory: CHF - Social History Living Situations: home Abuse History: No History of abuse Psych History: No pertinent hx Smoking Status: Former smoker Alcohol Use: none Drug Use: none - Immunizations Immunizations Up to Date: No - influenza 02/10 and pneumonia 02/10 and [facility] 01/10 [facility] Hx Pneumococcal Vaccination: Yes History of Influenza Vaccine: Yes Physical Exam - Physical Exam General Appearance: Present: wd/wn, alert, no apparent distress Head Exam: Present: normal inspection Neck: Present: normal inspection, nontender, supple Respiratory: Present: no respiratory distress, no accessory muscle use, lungs clear, decreased breath sounds Cardiovascular/Chest: Present: regular rate, rhythm, systolic murmur Peripheral Pulses: N=norm/S=strong/W=weak/B=bound/A=absent: Dorsalis-pedis (R): Weak, Dorsalis-pedis (L): Weak Extremity Exam: Present: pedal edema, extremity edema - 3+ lower legs and feet. Absent: calf tenderness Neurological Exam: Present: alert, oriented, normal mood/affect, no motor/ sensory deficits Skin Exam: Present: normal color, warm/dry ED Progress - Results and Orders Patient's Lab Results:: I have reviewed the patient's lab results. - Vital Signs Patient's Vital Signs:: I have reviewed the patient's vital signs. Vital Signs: Vital Signs 05/01/17 12:13 Temperature 36.5 C Pulse Rate 71 Respiratory 12 Rate Blood Pressure 148/52 O2 Sat by Pulse 94 Oximetry - Progress/Reassessment Chief Complaint: Genitourinary Problem Progress:: Unchanged Progress Note-Subjective: 05/01/17 13:34 Renal function is normal, as is BNP. Bladder scan after patient voided for urine sample showed over 200 ml. Follow up appointment made for patient to see urology d/t his history of BPH. Departure Clinical Impression: Urinary retention due to benign prostatic hyperplasia - Departure Disposition: Home Follow Up Needed Condition: Good Instructions: Benign Prostatic Hypertrophy Additional Instructions: Continue your current medications Follow up with urology as scheduled Return to ER if you are unable to urinate Referrals: Vinay Mccarty MD [Associate] - 05/14/17 11:15 am
[2017-05-01 12:43] LABS: Hematocrit 35.7 % (42.0-52.0); Hemoglobin 12.1 gm/dL (13.5-18.0); Mean Cell Volume 86.2 fl (78-100); Mean Corpuscular Hemoglobin 29.2 pg (27-31); Mean Corpuscular Hgb Conc 33.9 g/dl (32-36); Mean Platelet Volume 9.9 fl (6.0-9.5); Neutrophil # 4.9 K/mm3 (1.3-6.0); Neutrophil % 63.4 % (42-75.0); Platelet Count 211 K/mm3 (150-450); Red Blood Count 4.14 M/mm3 (4.7-6.0); Red Cell Distribution Width 15.4 % (11.5-14.0); White Blood Count 7.7 K/mm3 (4.0-10.5)
[2017-05-01 12:48] LABS: Urine Bilirubin Negative (NEGATIVE); Urine Ketone Negative (NEGATIVE); Urine Nitrite Negative (NEGATIVE); Urine Protein Negative (NEGATIVE); Urine Specific Gravity <=1.005 SP.GR. (1.005-1.030); Urine Urobilinogen Normal (NORMAL); Urine pH 5.5 pH (5.0-7.0)
[2017-05-01 12:54] VITALS: BP 146/50
[2017-05-01 13:01] LABS: Urine Appearance Clear; Urine Bacteria None Seen; Urine Blood 5 /ul (NEGATIVE); Urine Color Pale Yellow; Urine RBC None Seen /hpf (0-5); Urine WBC None Seen /hpf (0-5)
[2017-05-01 13:06] LABS: Albumin * 3.4 gm/dl (3.4-5.0); Anion Gap 13.2 mmol/L (6.8-13.8); BUN/Creatinine Ratio 8.3 (9.0-21.6); Bilirubin, Total 0.6 mg/dL (0.0-1.1); Ca. Corrected For Albumin 9.2 mg/dL (8.4-10.2); Carbon Dioxide 28.2 mmol/L (24-32.6); Potassium 3.4 mmol/L (3.4-4.6)
== END 2017-05-01 13:32 | disposition home or self-care (01) ==
LOC: ER 12:10
PROC: BT20ZZZ Computerized Tomography (CT Scan) of Bladder (ICD-10-PCS; principal; 2017-05-01)
DX: N40.1 Benign prostatic hyperplasia with lower urinary tract symptoms (principal); R33.8 Other retention of urine; Z87.891 Personal history of nicotine dependence; E03.9 Hypothyroidism, unspecified; I10 Essential (primary) hypertension; E78.5 Hyperlipidemia, unspecified

== ENCOUNTER 2017-10-08 10:58 | Observation (INO) ==
[2017-10-08] MEDS: NITROGLYCERIN 0.4 MG/TAB BTL SL PRN ×2 (16:58→17:18)
[2017-10-08] MEDS ORDERED: FUROSEMIDE 10 MG/ML VIAL IV STA (17:07)
[2017-10-08] MEDS ORDERED: SPIRONOLACTONE 25 MG TABLET PO STA (17:11)
--- NOTE | 2017-10-08 17:11 | HP ---
Chief Complaint - Chief Complaint Date of Service: 10/08/17 Time of Service: 17:11 Chief Complaint: shortness of breath and heaviness in chest earlier this morning. History of Present Illness: Hamilton Finney is a 81-year-old WM with a H/O Crohn's disease[ S/P resection in 1963, 1980], HTN, HLD, hypothyroidism, CKD stage III, gout, blindness in RT eye , OA who came into the office and stated he had shortness of breath and some heaviness in his chest with lasted for approximately 5-10 minutes prior to his arrival. There is also spontaneously and without any medication. It was not associated with diaphoresis/ chest pain/ lightheadedness/ palpitations. EKG done in the office showed a left bundle branch block without acute changes. Patient was admitted into observation and serial troponins will be obtained. - Patient's Past Medical History Additional info: PAST MEDICAL HISTORY: HTN, HLD, CKD stage III. Crohn's disease with surgeries 2. Partial small bowel obstruction which resolved conservatively. ARMD, hypothyroidism. Anemia due to iron and B12 deficiency. Legally blind in the right eye. Osteoarthritis- uses walker. Diarrhea. Additional Info: PAST SURGICAL HISTORY: Tonsillectomy childhood Colon resection- 1963, 1980 due to Crohn's disease. Appendectomy-1959. Hemorrhoidectomy . Bilateral cataract surgery in 1992, 1997. Retinal surgery 3 - RT Eye. Teeth extraction. Colonoscopy: 2004- anal stenosis and stricture. Patient History - Other: None - Family History Mother Family History - Medical: - 60-T2 DM, CA of the brain Father Family History - Medical: - -CHF, CRF - Social History Living Situations: alone Abuse History: No History of abuse Psych History: No pertinent hx Smoking Status: Former smoker Have you smoked in the past 12 months: No - Immunizations Immunizations Up to Date: No - influenza 02/10 and pneumonia 02/10 and [facility]ax 01/10 [facility] Hx Pneumococcal Vaccination: Yes History of Influenza Vaccine: Yes Review Of Systems (GEN) - Review of Systems Generalized/Overall Review: Absent: Chills, Fever, Weight loss EENTM: Present: Other - Legally blind right eye Respiratory: Absent: Cough Cardiac: Present: Edema, Other - heaviness, sob Abdominal: Present: Diarrhea. Absent: Nausea, Vomiting Genitourinary: Present: Frequency. Absent: Burning Musculoskeletal: Present: Joint Pain, Back Pain - uses walker Neurological: Absent: Anxiety, Depressed Skin: Absent: Dryness, Bruising Endocrine: Absent: Intolerance to Cold, Increased Hunger Immunizations: IMMUNIZATION HX Immunizations Up to Date No: influenza 02/10 and pneumonia 02/10 and [facility]10 [facility] History of Influenza Vaccine Yes Hx Pneumococcal Vaccination Yes Allergies/Adverse Reactions: Allergies Allergy/AdvReac Type Severity Reaction Status Date / Time fenofibrate nanocrystallized Allergy Verified 10/08/17 12:41 [From Tricor] fenofibrate,micronized Allergy Verified 10/08/17 12:41 [From Tricor] Iodine and Iodide Containing Allergy Verified 10/08/17 12:41 Produc niacin Allergy Verified 10/08/17 12:41 [From Niaspan Extended-Release] IVP Dye Allergy Uncoded 10/08/17 12:41 Home Medications: HOME MEDICATIONS Allopurinol [Zyloprim] 300 mg PO DAILY 09/04/15 [Last Taken Unknown] Aspirin [Aspirin EC] 81 mg PO DAILY 09/04/15 [Last Taken Unknown] Levothyroxine Sodium [Synthroid] 75 mcg PO 0700 09/04/15 [Last Taken Unknown] [place]-3S/Dha/Epa/Fish Oil [[place]-3 Fish Oil 1,200 mg Sfgl] 6 tab PO DAILY [Last Taken Unknown] Valsartan [Diovan] 160 mg PO BID 09/04/15 [Last Taken Unknown] Simethicone [Gas-X] 125 mg PO ACHS PRN #120 cap 09/07/15 [Last Taken Unknown] Cyanocobalamin (Vitamin B-12) [Vitamin B-12] 2,000 mcg PO DAILY 07/27/16 [Last Taken Unknown] Acetaminophen [Tylenol Arthritis] 1,300 mg PO BID PRN 07/16/17 [Last Taken Unknown] Albuterol Sulfate [Ventolin HFA] 1 - 2 puff IH Q6H PRN 07/16/17 [Last Taken Unknown] Cholecalciferol (Vitamin D3) [Vitamin D3] 2,000 unit PO DAILY 07/16/17 [Last Taken Unknown] Tamsulosin HCl [Flomax] 0.4 mg PO DAILY@1800 #60 cap 07/17/17 [Last Taken Unknown] Carvedilol [Coreg] 25 mg PO BID 10/08/17 [Last Taken Unknown] Isosorbide Mononitrate [Imdur] 60 mg PO DAILY #30 tab 10/09/17 [Last Taken Unknown] Nitroglycerin [Nitrostat] 0.4 mg SL Q5MIN PRN #1 btl 10/09/17 [Last Taken Unknown] Spironolactone [Aldactone] 50 mg PO DAILY@1100 #30 tablet 10/09/17 [Last Taken Unknown] Exam - Exam Vital Signs: Vital Signs - Last Taken Temp 36.5 C 10/08/17 14:56 Pulse 70 10/08/17 14:56 Resp 18 10/08/17 14:56 BP 178/86 10/08/17 14:56 Pulse Ox 96 10/08/17 14:56 Constitutional: Present: No distress - uses a walker., Elderly, Obese ENT Exam: Present: hearing grossly normal, other - dentures. Eye Exam: left eye: PERRL, EOMI, right eye: other - legally blind Neck: Present: normal inspection, trachea midline Respiratory: Present: lungs clear, normal breath sounds, no respiratory distress Cardiovascular/Chest: Present: regular rate, rhythm, systolic murmur. Absent: tachycardia Peripheral Pulses: carotid (R): 2+, carotid (L): 2+ Abdomen: Present: Normal bowel sounds, soft, nontender, obese, hernia /Rectal: Present: Exam deferred Extremity: Present: normal range of motion, pedal edema - 2+ Skin Exam: Present: warm/dry, pallor Neurologic: Present: alert, oriented x 3 Appearance: Present: appropriate appearance, appropriate insight, neat Eye contact: Present: cooperative, good eye contact, normal speech Diagnostic Studies: Laboratory Tests 10/08/17 11:05 WBC 8.9 Hgb 11.0 L Hct 34.6 L Plt Count 220 10/08/17 11:05 Plasma Sodium 143 H Potassium 3.0 L D Chloride 107 H Carbon Dioxide 26.8 BUN 13 Creatinine 1.27 Est GFR (Non-Af Amer) 58 L D Random Glucose 100 Calcium Adj for Albumin 9.1 Total Bilirubin 0.5 AST 21 ALT 18 L Alkaline Phosphatase 80 Total Protein 6.7 Albumin 3.1 L 10/08/17 10/08/17 11:05 17:05 Troponin I 0.034 0.044 10/08/17 17:05 B-Natriuretic Peptide 626 Assessment/Plan - Narrative Narrative: 1. SOB and chest heaviness: Patient has multiple risk factors including HTN, age, CKD stage III, remote H/O smoking. Had discussed with him- would like to be treated conservatively with medication due to multiple comorbidities and avoid invasive testing if possible. Obtain serial troponins and adjust medication if needed. 2. HTN 3. Hypothyroidism: Stable 4. CKD stage III: Stable. 4. Anemia: Due to B12 and iron deficiency. 5. Crohn's disease: S/P bowel resection 2; partial small bowel obstruction resolved conservatively several times 6. CODE STATUS: DNR. - Assessment/Plan (1) Chest pain, unspecified Problem: Acute Qualifiers: Chest pain type: unspecified Qualified Code(s): R07.9 - Chest pain, unspecified (2) HTN (hypertension) Problem: Chronic Qualifiers: Hypertension type: essential hypertension Qualified Code(s): I10 - Essential (primary) hypertension (3) Anemia Assessment: B12 and Fe deficiency Problem: Chronic Qualifiers: Anemia type: unspecified type Qualified Code(s): D64.9 - Anemia, unspecified (4) Crohn's disease (regional enteritis) Problem: Chronic Qualifiers: Gastrointestinal tract location: unspecified location Digestive disease complication type: with intestinal obstruction Qualified Code(s): K50.912 - Crohn's disease, unspecified, with intestinal obstruction
[2017-10-08] MEDS: ACETAMINOPHEN 325 MG TABLET PO ONE ×2 (17:12→17:28)
[2017-10-08] MEDS ORDERED: METOPROLOL TARTRATE 1 MG/ML AMPUL IV ONE (17:20)
[2017-10-08] MEDS: METOPROLOL TARTRATE 1 MG/ML AMPUL IV SCH ×3 (17:21→18:05)
[2017-10-08] MEDS ORDERED: SIMETHICONE 80 MG TAB.CHEW PO PRN (17:26)
[2017-10-08] MEDS ORDERED: ENALAPRILAT DIHYDRATE 1.25 MG/ML VIAL IV ONE (17:30)
[2017-10-08] MEDS ORDERED: CHOLECALCIFEROL 1,000 UNIT CAPSULE PO SCH (17:30)
[2017-10-08] MEDS ORDERED: POTASSIUM CHLORIDE 20 MEQ TABLET.SA ONE (18:47)
[2017-10-08] MEDS: POTASSIUM CHLORIDE 20 MEQ TABLET.SA PO SCH ×2 (18:53→22:11)
[2017-10-08] MEDS: CARVEDILOL 25 MG TABLET PO SCH (20:24)
[2017-10-08] MEDS: LOSARTAN POTASSIUM 50 MG TABLET PO SCH (20:24)
[2017-10-08] MEDS ORDERED: ACETAMINOPHEN 325 MG TABLET PO PRN (23:07)
[2017-10-08] MEDS ORDERED: diphenhydrAMINE HCL 25 MG CAPSULE PO ONE (23:07)
[2017-10-09] MEDS: POTASSIUM CHLORIDE 20 MEQ TABLET.SA PO SCH (01:20)
[2017-10-09 06:09] LABS: Albumin * 3.1 gm/dl (3.4-5.0); Anion Gap 13.4 mmol/L (6.8-13.8); BUN/Creatinine Ratio 10.6 (9.0-21.6); Bilirubin, Total 0.7 mg/dL (0.0-1.1); Ca. Corrected For Albumin 9.1 mg/dL (8.4-10.2); Calcium * 8.7 mg/dL (7.9-10.9); Carbon Dioxide 26.8 mmol/L (24-32.6); Potassium 3.2 mmol/L (3.4-4.6); Total Protein 6.8 gm/dL (6.2-8.2)
[2017-10-09 06:19] LABS: Troponin I 0.068 ng/ml (0.00-0.10)
[2017-10-09] MEDS ORDERED: ISOSORBIDE MONONITRATE 30 MG TAB.SR.24H PO SCH (09:00)
[2017-10-09] MEDS ORDERED: CYANOCOBALAMIN 1,000 MCG TABLET PO SCH (09:00)
[2017-10-09] MEDS: CARVEDILOL 25 MG TABLET PO SCH (09:29)
[2017-10-09] MEDS: LOSARTAN POTASSIUM 50 MG TABLET PO SCH (09:29)
[2017-10-09] MEDS ORDERED: SPIRONOLACTONE 25 MG TABLET PO ONE (09:45)
--- NOTE | 2017-10-09 11:17 | DS ---
(1) Chest pain, unspecified Problem: Acute Qualifiers: Chest pain type: unspecified Qualified Code(s): R07.9 - Chest pain, unspecified (2) HTN (hypertension) Problem: Chronic Qualifiers: Hypertension type: essential hypertension Qualified Code(s): I10 - Essential (primary) hypertension (3) Anemia Problem: Chronic Qualifiers: Anemia type: unspecified type Qualified Code(s): D64.9 - Anemia, unspecified (4) Crohn's disease Problem: Chronic Qualifiers: Digestive disease complication type: unspecified complication (5) Crohn's disease (regional enteritis) Problem: Chronic Qualifiers: Gastrointestinal tract location: unspecified location Digestive disease complication type: with intestinal obstruction Qualified Code(s): K50.912 - Crohn's disease, unspecified, with intestinal obstruction Description of Stay: DATE OF ADMISSION: 10/08/17. DATE OF DISCHARGE: 10/09/17. DIAGNOSTICS: NONE. DISCHARGE SUMMARY: Hamilton Finney is a 81-year-old WM ia a WM with a H/O Crohn's disease[ S/P resection in 1963, 1980], HTN, HLD, hypothyroidism, CKD stage III, gout, blindness in RT eye, OA who came into the office and stated he had shortness of breath and some heaviness in his chest with lasted for approximately 5-10 minutes prior to his arrival. There is also resolved spontaneously and without any medication. It was not associated with diaphoresis/ chest pain/ lightheadedness/ palpitations. EKG done in the office showed a left bundle branch block without acute changes. The patient suddenly became short of breath and went into A. fib with RVR with approximately 6 PM. He was given Lopressor 5 mg 3, 10 minutes apart with improvement in his symptoms. He also developed crackles in his chest and received furosemide 40 mg 1 and put out about 2 L of fluid, though his BNP was 626. He did convert to normal sinus rhythm. Labs and troponins were trended. The patient is being discharged in a stable condition with isosorbide mononitrate being increased from 30 mg to 60 mg daily in a.m. Patient was also given a prescription for nitroglycerin 0.4 mg S.L. The patient will undergo an echocardiogram and the pharmacological stress test prior to his appointment with PCP. Procedures Performed: none Discharge Location: Home Disposition: Home self-care Condition: Undetermined Discharge Activity: Activity as tolerated Discharge Diet: Low salt, Low fat/chol, Low Fiber Referrals: Tim Castano MD [Primary Care Provider] - Problem Oriented Discharge Instructions to Patient/Family: Chest Wall Pain, [id number], Potassium Content of Foods Additional Patient Instructions (free text): -Please make TCM appointment unless chcf discharge. Thank you! Tracey @ ext:[phone]. NEW MEDICATIONS: 1. Sublingual nitroglycerin as needed can be taken every 5 minutes for chest pain. Need to go to ER if chest pain does not resolve after 3 tablets 2. Isosorbide mononitrate 60 mg daily[can double up on 30 mg]. 3. Spironolactone 50 mg daily at 1100 hours.[Can double up on 25 mg] 4. Can take OTC potassium. DISCONTINUED MEDICATIONS: 1. Isosorbide mononitrate 30 mg daily. 2. Spironolactone 25 mg daily. Please give list of high sodium foods to avoid. Please give list of high potassium foods to take. Appointment with PCP in 10+/- 2 days follow up with Dr. Castano on 10-20-17 at 10:30am. Echocardiogram 10-15-17 at 11:00am. Nuc Pharmacological Stress Test is on 10-17-17 at 11:30pm. Nothing to eat or drink after midnight, no caffeine 12 hours prior to testing and bring any and all meds with you do not take prior to testing and wear comfortable cloths and shoes. Please arrive at 11 to check in . Prescriptions (Any new or edited meds): Nitroglycerin [Nitrostat] 0.4 mg SL Q5MIN PRN #1 btl PRN Reason: Pain Isosorbide Mononitrate [Imdur] 60 mg PO DAILY #30 tab Spironolactone [Aldactone] 50 mg PO DAILY@1100 #30 tablet Complete Home Medications List: Complete Home Medication List: Allopurinol [Zyloprim] 300 mg PO DAILY 09/04/15 Aspirin [Aspirin EC] 81 mg PO DAILY 09/04/15 Levothyroxine Sodium [Synthroid] 75 mcg PO 0700 09/04/15 [place]-3S/Dha/Epa/Fish Oil [[place]-3 Fish Oil 1,200 mg Sfgl] 6 tab PO DAILY Valsartan [Diovan] 160 mg PO BID 09/04/15 Simethicone [Gas-X] 125 mg PO ACHS PRN #120 cap 09/07/15 Cyanocobalamin (Vitamin B-12) [Vitamin B-12] 2,000 mcg PO DAILY 07/27/16 Acetaminophen [Tylenol Arthritis] 1,300 mg PO BID PRN 07/16/17 Albuterol Sulfate [Ventolin HFA] 1 - 2 puff IH Q6H PRN 07/16/17 Cholecalciferol (Vitamin D3) [Vitamin D3] 2,000 unit PO DAILY 07/16/17 Tamsulosin HCl [Flomax] 0.4 mg PO DAILY@1800 #60 cap 07/17/17 Carvedilol [Coreg] 25 mg PO BID 10/08/17 Isosorbide Mononitrate [Imdur] 60 mg PO DAILY #30 tab 10/09/17 Nitroglycerin [Nitrostat] 0.4 mg SL Q5MIN PRN #1 btl 10/09/17 Spironolactone [Aldactone] 50 mg PO DAILY@1100 #30 tablet 10/09/17 Amb Orders for Discharge: Comprehensive Metabolic Panel Time Frame: 2 Weeks, Location: Determined By Patient Nuc Pharmacological Stress Time Frame: 1 Week, Location: Determined By Patient US Echocardiogram Complete * Location: Determined By Patient
[2017-10-09 16:57] VITALS: BP 152/59
== END 2017-10-09 16:53 | disposition home or self-care (01) ==
LOC: MS 10:58
PROVIDERS: ADMIT Internal Medicine; ATTEND Internal Medicine
DX: I48.91 Unspecified atrial fibrillation; Z68.32 Body mass index [BMI] 32.0-32.9, adult; H54.40 Blindness, one eye, unspecified eye; D51.9 Vitamin B12 deficiency anemia, unspecified; I12.9 Hypertensive chronic kidney disease with stage 1 through stage 4 chronic kidney disease, or unspecified chronic kidney disease; I10 Essential (primary) hypertension; D50.9 Iron deficiency anemia, unspecified; Z87.891 Personal history of nicotine dependence; R07.9 Chest pain, unspecified; N18.3 Chronic kidney disease, stage 3 (moderate); K50.00 Crohn's disease of small intestine without complications
CPT/HCPCS: 36415; 80053; 83519; 83880; 84484; 93005; 96374; 96375; 96376; G0378; G0379

== ENCOUNTER 2017-12-04 10:23 | Inpatient (IN) ==
[2017-12-04] MEDS ORDERED: ALBUTEROL SULFATE/IPRATROPIUM 3 ML NEBU IH ONE ×3 (10:39→11:02)
[2017-12-04 11:07] LABS: Mean Cell Volume 88.3 fl (78-100); Mean Corpuscular Hemoglobin 26.6 pg (27-31); Mean Corpuscular Hgb Conc 30.1 g/dl (32-36); Mean Platelet Volume 9.9 fl (8-11.3); Platelet Count 255 K/mm3 (150-450); Red Blood Count 2.56 M/mm3 (4.7-6.0); Red Cell Distribution Width 15.9 % (11.5-14.0); White Blood Count 8.2 K/mm3 (4.0-10.5)
[2017-12-04 11:17] LABS: Hematocrit 22.6 % (42.0-52.0); Hemoglobin 6.8 gm/dL (13.5-18.0)
[2017-12-04 11:19] LABS: Total Cells Counted 100
[2017-12-04 11:22] LABS: Prothrombin Time (Patient) 82.9 Seconds (9.0-11.0)
[2017-12-04 11:27] LABS: Albumin * 2.7 gm/dl (3.4-5.0); Anion Gap 11.7 mmol/L (6.8-13.8); BUN/Creatinine Ratio 13.2 (9.0-21.6); Bilirubin, Total 0.3 mg/dL (0.0-1.1); Ca. Corrected For Albumin 8.9 mg/dL (8.4-10.2); Calcium * 8.2 mg/dL (7.9-10.9); Carbon Dioxide 24.8 mmol/L (24-32.6); Potassium 3.5 mmol/L (3.4-4.6)
[2017-12-04 11:39] LABS: INR 8.12 INR (0.90-1.10)
[2017-12-04 11:58] LABS: Eosinophil 2 % (0-3); Lymphocyte 22 % (20-51); Monocyte 5 % (0-9); Neutrophil 71 % (42-75); Neutrophil # 5.8 K/mm3 (1.3-6.0)
[2017-12-04 11:59] LABS: Hypochromia Trace
[2017-12-04] MEDS ORDERED: FUROSEMIDE 10 MG/ML VIAL IV ONE ×2 (12:35→20:00)
[2017-12-04] MEDS ORDERED: FUROSEMIDE 10 MG/ML VIAL ONE ×2 (12:46→23:42)
--- NOTE | 2017-12-04 13:26 | ERNOTE ---
Dyspnea - Date Date of Service: 12/04/17 - General Presenting Symptoms: shortness of breath Time Seen by Provider: 12/04/17 10:40 Source: patient Exam Limitations: no limitations - Immun/Allergies/Home Medications Immunizations: IMMUNIZATION HX Immunizations Up to Date Yes History of Influenza Vaccine Yes Hx Pneumococcal Vaccination Yes Allergies/Adverse Reactions: Allergies fenofibrate,micronized [From Tricor] Adverse Reaction (Intermediate, Verified 10:35) chest pain "heart hurts" IVP Dye Adverse Reaction (Intermediate, Uncoded 12/04/17 10:35) swollen face Home Medications: HOME MEDICATIONS [place]-3S/Dha/Epa/Fish Oil [[place]-3 Fish Oil 1,200 mg Sfgl] 6 tab PO DAILY [Last Taken Unknown] Simethicone [Gas-X] 125 mg PO ACHS PRN #120 cap 09/07/15 [Last Taken Unknown] Acetaminophen [Tylenol Arthritis] 1,300 mg PO BID PRN 07/16/17 [Last Taken Unknown] Cholecalciferol (Vitamin D3) [Vitamin D3] 2,000 unit PO DAILY 07/16/17 [Last Taken Unknown] Nitroglycerin [Nitrostat] 0.4 mg SL Q5MIN PRN #1 btl 10/09/17 [Last Taken Unknown] Cyanocobalamin (Vitamin B-12) [Vitamin B12] 2,000 mcg PO DAILY 10/27/17 [Last Taken Unknown] Aspirin [Aspirin EC] 81 mg PO 3XW #0.1 tablet. 11/01/17 [Last Taken Unknown] Sodium Bicarbonate 650 mg PO BIDWM #14 tab 11/01/17 [Last Taken Unknown] albuterol sulfate HFA 90 mcg/actuation aerosol inhaler 1 inh IH 6XD #8.5 g 11/03 [Last Taken Unknown] levothyroxine 75 mcg tablet 75 mcg PO 0700 #90 tab 11/03/17 [Last Taken Unknown] allopurinol 300 mg tablet 300 mg PO DAILY #90 tab 11/10/17 [Last Taken Unknown] carvedilol 25 mg tablet 12.5 mg PO BID #30 tab 11/25/17 [Last Taken Unknown] tamsulosin 0.4 mg capsule 0.4 mg PO DAILY@1800 #60 cap 11/25/17 [Last Taken Unknown] warfarin 5 mg tablet 5 mg PO DAILY #30 tab 11/26/17 [Last Taken Unknown] losartan 50 mg tablet 50 mg PO DAILY #30 tab 11/27/17 [Last Taken Unknown] isosorbide mononitrate ER 30 mg tablet,extended release 24 hr 30 mg PO DAILY # 30 tab 12/03/17 [Last Taken Unknown] - History of Present Illness Narrative: Patient presents to the ED for increasing leg swelling and trouble breathing. He feels like he is having fluid build up. He states he has had this a couple of times now. No CP. His SOB is worse with any exertion, he states he is having trouble even getting around his house. Legs are swelling up. He has been taking his medications as directed. Denies acute chest pain. No fever. No vomiting. He has not noticed blood in his stool but he has a hard time seeing Severity: severe Treatment LOSS PREVENTION OPERATIONS MANAGER: none Initiating event: Denies: out of meds Frequency of episodes: Reports: occassional episodes Modifying Factors - (Improves): Reports: rest Modifying Factors (Worsens): Reports: activity Associated Symptoms-Dyspnea: Denies: fever/chills, chest pain/discomfort, leg/ calf pain, weakness, tingling of hands/face Prior Treatment: Denies: recently seen Review of Systems - Review of Systems Constitutional: Absent: fever EYE: Present: no symptoms reported ENT: Absent: sore throat Respiratory: Present: shortness of breath Cardiology: Absent: chest pain Gastrointestinal/Abdominal: Absent: abdominal pain Skin: Present: no symptoms reported All Other Systems: All systems neg except as marked Medical History (Last Reviewed 11/13/17 @ 11:38 by Lou uMltani) Vitamin B12 deficiency (Chronic) Onset Date: ~11/23/15 Hypothyroidism (Acute) Onset Date: Unknown HTN (hypertension) (Chronic) Onset Date: Unknown HLD (hyperlipidemia) (Chronic) Onset Date: Unknown Crohns disease (Chronic) Onset Date: Unknown Chronic kidney disease (CKD) stage G1/A2, glomerular filtration rate (GFR) equal to or greater than 90 mL/min/1.73 square meter and albuminuria creatinine ratio between 30-299 mg/g (Chronic) Onset Date: Unknown Blind right eye (Chronic) Onset Date: Unknown Degenerative joint disease of right knee Onset Date: Unknown Gout Onset Date: Unknown H/O echocardiogram Onset Date: ~10/15/17 Macular degeneration Onset Date: Unknown Small bowel obstruction Onset Date: ~07/2016 Surgical History: Surgical History (Last Reviewed 11/13/17 @ 11:38 by Lou Multani) Cataract Onset Date: ~1997 Finger amputation, no complication Onset Date: ~1988 H/O hemorrhoidectomy Onset Date: ~1979 History of appendectomy Onset Date: ~1959 History of bowel resection Onset Date: ~1980 History of colonoscopy Onset Date: ~09/04/04 History of tonsillectomy Onset Date: Unknown Ingrown toenail Onset Date: ~06/2015 Family History: Family History (Last Reviewed 11/13/17 @ 11:38 by Lou Multani) Father No problems noted. Mother No problems noted. Social History: Preferred Language Citizen Of [place] Do you have any scientology or Yes: sikhism cultural preference? Smoking Status Former smoker Have you smoked in the past 12 No months Do you dip or chew tobacco No Abuse History No History of abuse Psych History No pertinent hx Alcohol Use none Drug Use none Physical Exam - Physical Exam General Appearance: Present: alert, no apparent distress Head Exam: Present: normal inspection, no evidence of injury Eye Exam: Other: right - Patient blind in right eye by history also Ears, Nose, Throat: Present: normal ENT inspection Neck: Present: normal inspection Respiratory: Present: no respiratory distress, no accessory muscle use, other - rales in the bases Cardiovascular/Chest: Present: normal peripheral pulses, irregularly irregular Gastrointestinal/Abdominal: Present: normal bowel sounds, nontender, soft, other - mild distention no tenderness Back Exam: Absent: CVA tenderness (R), CVA tenderness (L) Extremity Exam: Present: pedal edema Neurological Exam: Present: alert, other - no acute unilateral focal motor or sensory deficits. Skin Exam: Present: normal color, warm/dry ED Progress - Results and Orders Patient's Lab Results:: I have reviewed the patient's lab results. - Vital Signs Patient's Vital Signs:: I have reviewed the patient's vital signs. Vital Signs: Vital Signs 12/04/17 10:31 12/04/17 11:05 12/04/17 12:49 Pulse Rate 108 H 81 74 Respiratory Rate 14 17 Blood Pressure 150/60 H 147/67 O2 Sat by Pulse Oximetry 96 96 12/04/17 12:50 Pulse Rate 77 Respiratory Rate 21 H Blood Pressure 147/67 O2 Sat by Pulse Oximetry 97 - EKG EKG read: Interp. by me EKG Comments: A fib rate 106. LBBB> Minimally different from prior, no STEMI - X-Ray X-Ray #1 X-Ray: chest Interpretation: Interp. by me X-ray Comments: I reviewed official radiology report - Progress/Reassessment Chief Complaint: Dyspnea Progress Note-Subjective: 12/04/17 13:21 patient given 1U PRBC and FFP. Lsix given. Has CHF, anemia, guaiac neg stool and INR supratherapeutic. Patient agreeable to admission. D/W Dr Campos who will admit, he requested a consult to Dr Lee which I called. Departure Clinical Impression: CHF (congestive heart failure), Symptomatic anemia, Supratherapeutic INR - Departure Disposition: Still a patient Condition: Fair Referrals: Jim Santoyo DO [Primary Care Provider] -
--- NOTE | 2017-12-04 16:25 | HP ---
Chief Complaint - Chief Complaint Date of Service: 12/04/17 Time of Service: 16:08 Chief Complaint: sortness of breath/edema History of Present Illness: Hamilton Finney, is an 82-year-old white male, patient of Dr. Santoyo, with past medical history of Atrial Fibrillation, hypertension, hyperlipidemia, hypothyroidism, small bowel resection for Crohn's disease, chronic renal failure stage III, who was admitted on 12/04/2017 because of increasing shortness of breath and edema. He said he has had this on and off shortness of breath for a couple of times now but this time he has been having trouble getting around the house. His legs have been swelling up. He denies any history of congestive heart failure saying that nobody ever told him that he had it. He denied any chest pain. He is not sure if he has been having any change in the color of his stool as he is legally blind. He has not had any nausea or vomiting. In the emergency room he was found to have a hemoglobin of 6.8 down from 11, 2 months ago and 9.6, 1 month ago. He was also found to have an elevated BNP and an INR of 8.1 from coumadin. Medical History (Last Reviewed 11/13/17 @ 11:38 by Lou Multani) Vitamin B12 deficiency (Chronic) Onset Date: ~11/23/15 Hypothyroidism (Acute) Onset Date: Unknown HTN (hypertension) (Chronic) Onset Date: Unknown HLD (hyperlipidemia) (Chronic) Onset Date: Unknown Crohns disease (Chronic) Onset Date: Unknown Chronic kidney disease (CKD) stage G1/A2, glomerular filtration rate (GFR) equal to or greater than 90 mL/min/1.73 square meter and albuminuria creatinine ratio between 30-299 mg/g (Chronic) Onset Date: Unknown Blind right eye (Chronic) Onset Date: Unknown Degenerative joint disease of right knee Onset Date: Unknown Gout Onset Date: Unknown H/O echocardiogram Onset Date: ~10/15/17 Macular degeneration Onset Date: Unknown Small bowel obstruction Onset Date: ~07/2016 Surgical History: Surgical History (Last Reviewed 11/13/17 @ 11:38 by Lou Multani) Cataract Onset Date: ~1997 Finger amputation, no complication Onset Date: ~1988 H/O hemorrhoidectomy Onset Date: ~1979 History of appendectomy Onset Date: ~1959 History of bowel resection Onset Date: ~1980 History of colonoscopy Onset Date: ~09/04/04 History of tonsillectomy Onset Date: Unknown Ingrown toenail Onset Date: ~06/2015 Family History: Family History (Last Reviewed 11/13/17 @ 11:38 by Lou Multani) Father No problems noted. Mother No problems noted. Social History: Preferred Language Hungarian Do you have any restorationist or Yes: yazidism cultural preference? Smoking Status Former smoker Have you smoked in the past 12 No months Do you dip or chew tobacco No Abuse History No History of abuse Psych History No pertinent hx Alcohol Use none Drug Use none Review Of Systems (GEN) - Review of Systems Generalized/Overall Review: Present: Weakness. Absent: Chills, Fever EENTM: Present: Other - legally blind Respiratory: Present: Shortness of Breath. Absent: Cough Cardiac: Present: Edema. Absent: Chest Pain, Palpitations Abdominal: Absent: Nausea, Vomiting, Abdominal Pain Genitourinary: Absent: Urgency, Frequency Musculoskeletal: Present: Joint Pain Immunizations: IMMUNIZATION HX Immunizations Up to Date Yes History of Influenza Vaccine Yes Hx Pneumococcal Vaccination Yes Allergies/Adverse Reactions: Allergies Allergy/AdvReac Type Severity Reaction Status Date / Time fenofibrate,micronized AdvReac Intermediate chest pain Verified 12/04/17 10:35 [From Tricor] "heart hurts" IVP Dye AdvReac Intermediate swollen Uncoded 12/04/17 10:35 face Home Medications: HOME MEDICATIONS [place]-3S/Dha/Epa/Fish Oil [[place]-3 Fish Oil 1,200 mg Sfgl] 6 tab PO DAILY [Last Taken Unknown] Simethicone [Gas-X] 125 mg PO ACHS PRN #120 cap 09/07/15 [Last Taken Unknown] Acetaminophen [Tylenol Arthritis] 1,300 mg PO BID PRN 07/16/17 [Last Taken Unknown] Cholecalciferol (Vitamin D3) [Vitamin D3] 2,000 unit PO DAILY 07/16/17 [Last Taken Unknown] Nitroglycerin [Nitrostat] 0.4 mg SL Q5MIN PRN #1 btl 10/09/17 [Last Taken Unknown] Cyanocobalamin (Vitamin B-12) [Vitamin B12] 2,000 mcg PO DAILY 10/27/17 [Last Taken Unknown] Aspirin [Aspirin EC] 81 mg PO 3XW #0.1 tablet. 11/01/17 [Last Taken Unknown] Sodium Bicarbonate 650 mg PO BIDWM #14 tab 11/01/17 [Last Taken Unknown] albuterol sulfate HFA 90 mcg/actuation aerosol inhaler 1 inh IH 6XD #8.5 g 11/03 [Last Taken Unknown] levothyroxine 75 mcg tablet 75 mcg PO 0700 #90 tab 11/03/17 [Last Taken Unknown] allopurinol 300 mg tablet 300 mg PO DAILY #90 tab 11/10/17 [Last Taken Unknown] carvedilol 25 mg tablet 12.5 mg PO BID #30 tab 11/25/17 [Last Taken Unknown] tamsulosin 0.4 mg capsule 0.4 mg PO DAILY@1800 #60 cap 11/25/17 [Last Taken Unknown] warfarin 5 mg tablet 5 mg PO DAILY #30 tab 11/26/17 [Last Taken Unknown] losartan 50 mg tablet 50 mg PO DAILY #30 tab 11/27/17 [Last Taken Unknown] isosorbide mononitrate ER 30 mg tablet,extended release 24 hr 30 mg PO DAILY # 30 tab 12/03/17 [Last Taken Unknown] Exam - Exam Vital Signs: Vital Signs - Last Taken Temp 36.6 C 12/04/17 14:15 Pulse 83 12/04/17 14:15 Resp 14 12/04/17 14:15 BP 154/63 H 12/04/17 14:15 Pulse Ox 97 12/04/17 14:15 Constitutional: Present: Alert, Oriented x3, Cooperative ENT Exam: Present: hard of hearing Eye Exam: bilateral eye: conjunctivae pale Neck: Present: supple Respiratory: Present: decreased breath sounds, No rales, No wheezing Cardiovascular/Chest: Present: no JVD, no murmur, irregularly irregular Abdomen: Present: nontender, obese, distended, hypoactive Extremity: Present: no calf tenderness, lower extremity edema Diagnostic Studies: Abnormal Lab Results 12/04/17 12/04/17 12/04/17 Range/Units 10:45 10:45 10:45 RBC 2.56 L (4.7-6.0) M/mm3 Hgb 6.8 L* D (13.5-18.0) gm/dL Hct 22.6 L* (42.0-52.0) % MCH 26.6 L (27-31) pg MCHC 30.1 L (32-36) g/dl RDW 15.9 H (11.5-14.0) % PT 82.9 H (9.0-11.0) Seconds INR (Anticoag Therapy) 8.12 H* (0.90-1.10) INR Chloride 107 H (97-106) mmol/L Creatinine 1.51 H (0.4-1.4) mg/dL Est GFR (Non-Af Amer) 47 L (60-130) mL/min Random Glucose 130 H (70-110) mg/dL ALT 15 L (19-67) U/L B-Natriuretic Peptide 1285 H (5-650) pg/mL Total Protein 6.0 L (6.2-8.2) gm/dL Albumin 2.7 L (3.4-5.0) gm/dl Crossmatch 12/04/17 Range/Units 11:38 RBC (4.7-6.0) M/mm3 Hgb (13.5-18.0) gm/dL Hct (42.0-52.0) % MCH (27-31) pg MCHC (32-36) g/dl RDW (11.5-14.0) % PT (9.0-11.0) Seconds INR (Anticoag Therapy) (0.90-1.10) INR Chloride (97-106) mmol/L Creatinine (0.4-1.4) mg/dL Est GFR (Non-Af Amer) (60-130) mL/min Random Glucose (70-110) mg/dL ALT (19-67) U/L B-Natriuretic Peptide (5-650) pg/mL Total Protein (6.2-8.2) gm/dL Albumin (3.4-5.0) gm/dl Crossmatch See Detail Laboratory Results WBC 8.2 K/mm3 (4.0-10.5) 12/04/17 10:45 RBC 2.56 M/mm3 (4.7-6.0) L 12/04/17 10:45 Hgb 6.8 gm/dL (13.5-18.0) L* D 12/04/17 10:45 Hct 22.6 % (42.0-52.0) L* 12/04/17 10:45 MCV 88.3 fl (78-100) 12/04/17 10:45 MCH 26.6 pg (27-31) L 12/04/17 10:45 MCHC 30.1 g/dl (32-36) L 12/04/17 10:45 RDW 15.9 % (11.5-14.0) H 12/04/17 10:45 Plt Count 255 K/mm3 (150-450) 12/04/17 10:45 MPV 9.9 fl (8-11.3) 12/04/17 10:45 Neutrophils % (Manual) 71 % (42-75) 12/04/17 10:45 Lymphocytes % (Manual) 22 % (20-51) 12/04/17 10:45 Monocytes % (Manual) 5 % (0-9) 12/04/17 10:45 Eosinophils % (Manual) 2 % (0-3) 12/04/17 10:45 Neutrophils # (Manual) 5.8 K/mm3 (1.3-6.0) 12/04/17 10:45 Lymphocytes # (Manual) 1.8 k/mm3 (1.5-3.5) 12/04/17 10:45 Monocytes # (Manual) 0.4 k/mm3 (0.0-1.0) 12/04/17 10:45 Eosinophils # (Manual) 0.2 k/mm3 (0.0-0.7) 12/04/17 10:45 Hypochromasia Trace 12/04/17 10:45 Elliptocytes Trace 12/04/17 10:45 PT 82.9 Seconds (9.0-11.0) H 12/04/17 10:45 INR (Anticoag Therapy) 8.12 INR (0.90-1.10) H* 12/04/17 10:45 Sodium 140 mmol/L (132-142) 12/04/17 10:45 Plasma Sodium 140 mmol/L (130-142) 12/04/17 10:45 Potassium 3.5 mmol/L (3.4-4.6) D 12/04/17 10:45 Chloride 107 mmol/L (97-106) H 12/04/17 10:45 Carbon Dioxide 24.8 mmol/L (24-32.6) 12/04/17 10:45 Anion Gap 11.7 mmol/L (6.8-13.8) 12/04/17 10:45 BUN 20 mg/dL (6-23) 12/04/17 10:45 Creatinine 1.51 mg/dL (0.4-1.4) H 12/04/17 10:45 Est GFR (Non-Af Amer) 47 mL/min (60-130) L 12/04/17 10:45 BUN/Creatinine Ratio 13.2 (9.0-21.6) 12/04/17 10:45 Random Glucose 130 mg/dL (70-110) H 12/04/17 10:45 Calcium 8.2 mg/dL (7.9-10.9) 12/04/17 10:45 Calcium Adj for Albumin 8.9 mg/dL (8.4-10.2) 12/04/17 10:45 Total Bilirubin 0.3 mg/dL (0.0-1.1) 12/04/17 10:45 AST 14 U/L (0-48) 12/04/17 10:45 ALT 15 U/L (19-67) L 12/04/17 10:45 Alkaline Phosphatase 69 U/L (50-170) 12/04/17 10:45 Troponin I 0.030 ng/mL (0.00-0.10) 12/04/17 Unknown B-Natriuretic Peptide 1285 pg/mL (5-650) H 12/04/17 10:45 Total Protein 6.0 gm/dL (6.2-8.2) L 12/04/17 10:45 Albumin 2.7 gm/dl (3.4-5.0) L 12/04/17 10:45 Stool Occult Blood Negative 12/04/17 11:40 Blood Type O Positive 12/04/17 11:38 Antibody Screen Negative 12/04/17 11:38 Crossmatch See Detail 12/04/17 11:38 Assessment/Plan - Assessment/Plan (1) Shortness of breath Assessment: due to anemia/CHF Problem: Acute (2) Anemia Assessment: likely due to acute blood loss on chronic anemia. will transfuse one more unit. will get surgical consult for possible EGD and/or Colonoscopy . Problem: Chronic Qualifiers: Anemia type: iron deficiency (3) Supratherapeutic INR Problem: Acute (4) CHF (congestive heart failure) Assessment: likely combined systolic/diastolic r/o High cardiac output HF from acute enemia. Problem: Acute Qualifiers: Heart failure type: combined systolic and diastolic Heart failure chronicity: acute on chronic Qualified Code(s): I50.43 - Acute on chronic combined systolic (congestive) and diastolic (congestive) heart failure (5) HTN (hypertension) Problem: Chronic Qualifiers: Hypertension type: essential hypertension Qualified Code(s): I10 - Essential (primary) hypertension (6) HLD (hyperlipidemia) Problem: Chronic Qualifiers: Hyperlipidemia type: mixed hyperlipidemia Qualified Code(s): E78.2 - Mixed hyperlipidemia (7) Crohns disease Problem: Chronic (8) Blind right eye Problem: Chronic (9) Hypothyroidism Problem: Acute
[2017-12-04] MEDS ORDERED: PHYTONADIONE (VIT K1) 5 MG TABLET PO ONE (16:26)
--- NOTE | 2017-12-04 18:49 | CONS ---
[facility] - General Date of Service: 12/04/17 Source: patient, RN/, RN notes reviewed, old records Exam Limitations: no limitations - History of Present Illness Initial Comments: The patient is an 82-year-old male well-known to me, who presented to the emergency room with marked increased shortness of breath and dyspnea on exertion with increasing edema. He was found to have a hemoglobin of 6.8 and his INR is 8.1. He is in atrial fibrillation. He was on Eliquis but could not afford that and about 2 weeks ago was switched to Coumadin. He has very poor eyesight and cannot tell if there has been blood in his stool, however a stool sample in the emergency room was negative for occult blood. He has a chronic partial small bowel obstruction from previous surgery for Crohn 's disease which gives him gas, however he reports no significant upper GI symptoms. He has no new abdominal pain. He has had no recent falls or trauma. His hemoglobin in April was 12.1, around 11 in the spring, and fell to to 9.9 in early October. His last hemoglobin was 9.2 on 10/31/2017. At that time his TIBC 366 with transferrin saturation of 33% and B12 of 938. Apparently he received iron infusions through the [facility] earlier this year. His past surgical history is remarkable for appendectomy in 1959 or 1959. He apparently had additional operations for small bowel obstruction and then a resection for Crohn's disease in 1963. 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 Since that time he has had chronic abdominal distention with episodic obstipation. He has been admitted here in 2016 and 2017 for partial small bowel obstruction (see previous CT scans) which were managed by NG Decompression. His last colonoscopy to the small bowel colon anastomosis was performed by Dr. Martinez in 2011. He was also referred to the [facility] and there was consideration of rescoping him with the intention of dilating a possible stricture with a balloon, however he did not want to drink the prep and drive ( he was driving at that time) and so he never went for that. He apparently has also had previous EGDs elsewhere dating back to at least 1999 and on one occasion he had both EGD and colonoscopy. Allergies/Adverse Reactions: Allergies fenofibrate,micronized [From Tricor] Adverse Reaction (Intermediate, Verified 10:35) chest pain "heart hurts" IVP Dye Adverse Reaction (Intermediate, Uncoded 12/04/17 10:35) swollen face Home Medications: Home Medications Medication Instructions Recorded Last Taken Acetaminophen [Tylenol Arthritis] 1,300 mg PO BID PRN 07/16/17 Unknown Nitroglycerin [Nitrostat] 0.4 mg SL Q5MIN PRN #1 btl 10/09/17 Unknown Sodium Bicarbonate 650 mg PO BIDWM #14 tab 11/01/17 Unknown albuterol sulfate HFA 90 1 inh IH 6XD #8.5 g 11/03/17 Unknown mcg/actuation aerosol inhaler levothyroxine 75 mcg tablet 75 mcg PO 0700 #90 tab 11/03/17 Unknown allopurinol 300 mg tablet 300 mg PO DAILY #90 tab 11/10/17 Unknown carvedilol 25 mg tablet 12.5 mg PO BID #30 tab 11/25/17 Unknown tamsulosin 0.4 mg capsule 0.4 mg PO DAILY@1800 #60 cap 11/25/17 Unknown warfarin 5 mg tablet 5 mg PO DAILY #30 tab 11/26/17 Unknown losartan 50 mg tablet 50 mg PO DAILY #30 tab 11/27/17 Unknown isosorbide mononitrate ER 30 mg 30 mg PO DAILY #30 tab 12/03/17 Unknown tablet,extended release 24 hr Amlodipine Besylate 5 mg PO BID 12/04/17 Unknown Apixaban [Eliquis] 5 mg PO BID 12/04/17 Unknown Finasteride [Proscar] 5 mg PO DAILY 12/04/17 Unknown Ondansetron [Zofran Odt] 4 mg PO Q4H PRN 12/04/17 Unknown Potassium Chloride [K-Dur] 20 meq PO DAILY 12/04/17 Unknown Spironolactone 50 mg PO DAILY 12/04/17 Unknown Valsartan 80 mg PO HS 12/04/17 Unknown hydrALAZINE HCL [Hydralazine HCl] 10 mg PO TID 12/04/17 Unknown Procedures Computerized Tomography (CT Scan) of Bladder (05/01/17) Insertion of intraocular lens prosthesis at time of cataract extraction, one- stage (02/02/02) Phacoemulsification and aspiration of cataract (02/02/02) Review of Systems - Review of Systems Generalized/Overall Review: Present: Fatigue, Weight gain. Absent: Chills, Fever EENTM: Present: Other - Very poor vision Respiratory: Present: Shortness of Breath Cardiac: Present: Edema, Palpitations. Absent: Chest Pain Abdominal: Present: Other - Chronic distention and gas however his bowels are moving. He has not noticed any blood in his bowel movements and has very little in the way of gastric symptoms Genitourinary: Present: Other - Frequent urination from diuretic Musculoskeletal: Present: Joint Pain Neurological: Present: No Symptoms Reported Skin: Present: No Symptoms Reported Physical Examination - Exam Vital Signs: Vital Signs - Last Taken Temp 36.5 C 12/04/17 18:11 Pulse 79 12/04/17 18:11 Resp 20 12/04/17 18:11 BP 169/69 H 12/04/17 18:11 Pulse Ox 97 12/04/17 18:11 O2 Oxygen Delivery Method Room Air Constitutional: Present: Alert, Oriented x3, Cooperative, Well nourished, No distress, Elderly ENT Exam: Present: other - Poor eyesight Neck: Present: other - Right carotid bruit Respiratory: Present: no respiratory distress - At rest. Absent: accessory muscle use Cardiovascular/Chest: Present: irregularly irregular Abdomen: Present: soft, other - He denies pain or tenderness, distended /Rectal: Present: Exam deferred Extremity: Present: lower extremity edema Skin Exam: Present: pallor Neurologic: Present: oriented x 3 Appearance: Present: appropriate insight Eye contact: Present: cooperative, normal speech Thoughts: Present: normal thought pattern, other - Fairly good historian, although some dates are imprecise - Results and Findings: Lab/Microbiology results last 24 hrs: Abnormal/Pending Laboratory Last 24 HRS 12/04/17 12/04/17 12/04/17 11:38 10:45 10:45 RBC Hgb Hct MCH MCHC RDW PT 82.9 H INR (Anticoag Therapy) 8.12 H* Chloride 107 H Creatinine 1.51 H Est GFR (Non-Af Amer) 47 L Random Glucose 130 H ALT 15 L B-Natriuretic Peptide 1285 H Total Protein 6.0 L Albumin 2.7 L Crossmatch See Detail 12/04/17 10:45 RBC 2.56 L Hgb 6.8 L* D Hct 22.6 L* MCH 26.6 L MCHC 30.1 L RDW 15.9 H PT INR (Anticoag Therapy) Chloride Creatinine Est GFR (Non-Af Amer) Random Glucose ALT B-Natriuretic Peptide Total Protein Albumin Crossmatch - Assessments/Findings (1) Anemia Diagnosis(s): With recent acute exacerbation of his chronic anemia coinciding with elevated INR due to change in anticoagulant medication, the most likely source of the anemia would be GI blood loss----however the stool sample in the emergency room was negative. There is no preceding trauma to account for occult bleeding. He has had a colonoscopy as recently as 2011 and there has been no gross blood. EGD would not be an unreasonable procedure, at least to start, as this can be performed without prep while he is still in the hospital when his INR has returned to acceptable range. Whether to proceed with another colonoscopy is a little more problematic in that the volume shifts of the prep may be hazardous and with his poor eyesight a prep at home would be dangerous as well. I discussed the case at length with Dr. Campos. I discussed the situation at length with the patient as well. I will not be available for the next 2 days. I have therefore, with the patient's consent, discussed this case with Dr. Lawrence who will follow the patient and decide upon timing of any endoscopy. Problem: Acute Qualifiers: Anemia type: unspecified type Qualified Code(s): D64.9 - Anemia, unspecified
[2017-12-04 20:05] LABS: Hematocrit 26.8 % (42.0-52.0); Hemoglobin 8.3 gm/dL (13.5-18.0)
[2017-12-04] MEDS: ACETAMINOPHEN 325 MG TABLET PO PRN (23:50)
[2017-12-05 00:40] LABS: Hematocrit 28.2 % (42.0-52.0); Hemoglobin 8.8 gm/dL (13.5-18.0)
[2017-12-05] MEDS ORDERED: NITROGLYCERIN 0.4 MG/TAB BTL SL PRN (02:41)
[2017-12-05] MEDS ORDERED: ONDANSETRON 8 MG TAB.RAPDIS PO PRN (02:41)
[2017-12-05 05:18] LABS: Hematocrit 27.8 % (42.0-52.0); Hemoglobin 8.6 gm/dL (13.5-18.0); Mean Cell Volume 88.8 fl (78-100); Mean Corpuscular Hemoglobin 27.5 pg (27-31); Mean Corpuscular Hgb Conc 30.9 g/dl (32-36); Mean Platelet Volume 8.9 fl (8-11.3); Neutrophil # 5.7 K/mm3 (1.3-6.0); Neutrophil % 67.4 % (42-75.0); Platelet Count 224 K/mm3 (150-450); Red Blood Count 3.13 M/mm3 (4.7-6.0); Red Cell Distribution Width 15.8 % (11.5-14.0); White Blood Count 8.4 K/mm3 (4.0-10.5)
[2017-12-05 05:25] LABS: Prothrombin Time (Patient) 30.3 Seconds (9.0-11.0)
[2017-12-05 05:27] LABS: BUN/Creatinine Ratio 13.9 (9.0-21.6); Calcium * 8.4 mg/dL (7.9-10.9); Carbon Dioxide 29.1 mmol/L (24-32.6); Estimated Creat Clear 38.8; Potassium 3.1 mmol/L (3.4-4.6)
[2017-12-05] MEDS: LEVOTHYROXINE SODIUM 75 MCG TABLET PO SCH (07:09)
[2017-12-05] MEDS ORDERED: CARVEDILOL 25 MG TABLET PO SCH (09:00)
[2017-12-05] MEDS: hydrALAZINE HCL 10 MG TABLET PO SCH ×3 (09:27→17:46)
[2017-12-05] MEDS: SPIRONOLACTONE 25 MG TABLET PO SCH (09:27)
[2017-12-05] MEDS: LOSARTAN POTASSIUM 50 MG TABLET PO SCH (09:27)
--- NOTE | 2017-12-05 09:27 | ANES ---
Anesthesia Pre Procedure Eval Vitals/Labs: Last Vital Signs Temp 36.6 C 12/05/17 08:02 Pulse 86 12/05/17 08:02 Resp 20 12/05/17 08:02 BP 154/82 H 12/05/17 08:02 Pulse Ox 98 12/05/17 08:02 HOME MEDICATIONS Acetaminophen [Tylenol Arthritis] 1,300 mg PO BID PRN 07/16/17 [Last Taken Unknown] Nitroglycerin [Nitrostat] 0.4 mg SL Q5MIN PRN #1 btl 10/09/17 [Last Taken Unknown] Sodium Bicarbonate 650 mg PO BIDWM #14 tab 11/01/17 [Last Taken Unknown] albuterol sulfate HFA 90 mcg/actuation aerosol inhaler 1 inh IH 6XD #8.5 g 11/03 [Last Taken Unknown] levothyroxine 75 mcg tablet 75 mcg PO 0700 #90 tab 11/03/17 [Last Taken Unknown] allopurinol 300 mg tablet 300 mg PO DAILY #90 tab 11/10/17 [Last Taken Unknown] carvedilol 25 mg tablet 12.5 mg PO BID #30 tab 11/25/17 [Last Taken Unknown] tamsulosin 0.4 mg capsule 0.4 mg PO DAILY@1800 #60 cap 11/25/17 [Last Taken Unknown] warfarin 5 mg tablet 5 mg PO DAILY #30 tab 11/26/17 [Last Taken Unknown] losartan 50 mg tablet 50 mg PO DAILY #30 tab 11/27/17 [Last Taken Unknown] isosorbide mononitrate ER 30 mg tablet,extended release 24 hr 30 mg PO DAILY # 30 tab 12/03/17 [Last Taken Unknown] Amlodipine Besylate 5 mg PO BID 12/04/17 [Last Taken Unknown] Apixaban [Eliquis] 5 mg PO BID 12/04/17 [Last Taken Unknown] Finasteride [Proscar] 5 mg PO DAILY 12/04/17 [Last Taken Unknown] Ondansetron [Zofran Odt] 4 mg PO Q4H PRN 12/04/17 [Last Taken Unknown] Potassium Chloride [K-Dur] 20 meq PO DAILY 12/04/17 [Last Taken Unknown] Spironolactone 50 mg PO DAILY 12/04/17 [Last Taken Unknown] Valsartan 80 mg PO HS 12/04/17 [Last Taken Unknown] hydrALAZINE HCL [Hydralazine HCl] 10 mg PO TID 12/04/17 [Last Taken Unknown] Allergies/Adverse Reactions: Allergies Allergy/AdvReac Type Severity Reaction Status Date / Time fenofibrate,micronized AdvReac Intermediate chest pain Verified 12/04/17 10:35 [From Tricor] "heart hurts" IVP Dye AdvReac Intermediate swollen Uncoded 12/04/17 10:35 face - Planned Procedure Planned Procedure: EGD Medication List Reviewed:: Yes Allergies Verified: Yes Medical History (Last Reviewed 12/05/17 @ 09:26 by Martir Noe CRNA) Vitamin B12 deficiency (Chronic) Onset Date: ~11/23/15 Hypothyroidism (Acute) Onset Date: Unknown HTN (hypertension) (Chronic) Onset Date: Unknown HLD (hyperlipidemia) (Chronic) Onset Date: Unknown Crohns disease (Chronic) Onset Date: Unknown Chronic kidney disease (CKD) stage G1/A2, glomerular filtration rate (GFR) equal to or greater than 90 mL/min/1.73 square meter and albuminuria creatinine ratio between 30-299 mg/g (Chronic) Onset Date: Unknown Blind right eye (Chronic) Onset Date: Unknown Atrial fibrillation COPD (chronic obstructive pulmonary disease) Degenerative joint disease of right knee Onset Date: Unknown Gout Onset Date: Unknown H/O echocardiogram Onset Date: ~10/15/17 Macular degeneration Onset Date: Unknown Small bowel obstruction Onset Date: ~07/2016 Surgical History (Last Reviewed 12/05/17 @ 09:26 by Martir Noe CRNA) Cataract Onset Date: ~1997 Finger amputation, 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 Mother No problems noted. - Family Anesthesia History Family History:: no untoward family reactions to anesthesia, no familial bleeding tendencies, no family history of clotting disorders, no family history of premature - Airway/Neck/Teeth Within Normal Limits:: Yes Teeth Condition: Missing Teeth Denture Type: Full- Upper & Lower Mallampatti Score: 2 Thyromental (T-M) distance: > 6 cm Mandibulo Hyoid distance: > 3 cm - Respiratory Respiratory: decreased breath sounds, wheezing Discussed smoking cessation including day of surgery: No Sleep Apnea currently treated: No Sleep Apnea by current assessment: No Discussed Risks/Treatment of ANNA: No - Cardiovascular Tolerates Activity: Poor Heart Sounds: S1 & S2, Irregular - Anesthesia Assessment and Plan ASA Class: PS, III Anesthesia Type Plan: MAC Planned difficult intubation/equipment available: No
[2017-12-05] MEDS: POTASSIUM CHLORIDE 20 MEQ TABLET.SA PO SCH (09:28)
[2017-12-05] MEDS: ISOSORBIDE MONONITRATE 30 MG TAB.SR.24H PO SCH (09:28)
[2017-12-05] MEDS: ALLOPURINOL 300 MG TABLET PO SCH (09:28)
[2017-12-05] MEDS: amLODIPine BESYLATE 5 MG TABLET PO SCH ×2 (09:28→21:00)
[2017-12-05] MEDS: SODIUM BICARBONATE 650 MG TABLET PO SCH ×2 (09:28→17:46)
[2017-12-05] MEDS: FINASTERIDE 5 MG TABLET PO SCH (09:28)
[2017-12-05] MEDS ORDERED: RINGER'S SOLUTION,LACTATED 1,000 ML IV ONE (10:18)
--- NOTE | 2017-12-05 10:50 | ANES ---
Post Anesthesia Discharge - Transfer of Care Transfer of Care handoff given to nurse: Yes - Discharge from PACU Discharge from PACU when meets criteria: Yes
[2017-12-05] MEDS ORDERED: SODIUM, POTASSIUM,MAG SULFATES 1 KIT KIT PO ONE (11:00)
--- NOTE | 2017-12-05 11:06 | OR ---
Operative Report - Dictated Report Narrative: Date of Service: 12/05/17 Procedure: EGD with biopsy Pre-procedure diagnosis: anemia, elevated INR Post-procedure diagnosis: normal EGD Surgeon: Dr. Rosy Mejia Revenue [employer] Collection Agent: Elsa Anesthesia: Gen Indication for procedure: *Reg is a very pleasant 82-year-old gentleman who is anemic, he was recently started on Coumadin, and the had an elevated INR. His INR is down to 3 today. He had some dry heaving last night, but no hematemesis. Because of this we'll plan to do a general anesthesia to protect airway. Description of procedure: After appropriate informed consent was obtained, patient was taken to the endoscopy suite placed in the left lateral decubitus position. Monitors were applied, general anesthesia was achieved. A lubricated gastroscope was inserted and advanced into the second portion of the duodenum. The scope was slowly withdrawn, the duodenum appeared normal. The scope was withdrawn to the antrum. An antral biopsy was taken. A biopsy for Monique was also taken. The scope was retroflexed, the stomach appeared normal. The body of the stomach also appeared normal. Scope was slowly withdrawn to the GE junction, the Z line appeared normal at 38 cm. The excess air was suctioned and the scope was slowly removed. Complications: none Specimens to pathology: antral biopsy, and MONIQUE Estimated blood loss: minimal Disposition: I did not find a source for the patient's anemia. I recommend that we proceed with colonoscopy tomorrow. I will discuss this with the patient further once he is more awake.
[2017-12-05] MEDS ORDERED: FUROSEMIDE 10 MG/ML VIAL IV ONE (12:51)
[2017-12-05] MEDS ORDERED: POTASSIUM CHLORIDE 10 MEQ TABLET.SA PO ONE (13:41)
--- NOTE | 2017-12-05 13:50 | PN ---
Subjective - Date and Time Seen Date: 12/05/17 Time: 13:46 Subjective Narrative: Patient is feeling kenisha SOB compared to yestrday. he had his EGD done which was normal. Objective - Review of Systems Generalized/Overall Review: Reports: Weakness. 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 Denies: Cough Cardiac: Reports: Edema. Denies: Chest Pain, Palpitations Abdominal: Reports: Nausea. Denies: Vomiting Genitourinary Symptoms: Denies: Urgency, Frequency Musculoskeletal Complaints: Reports: Joint Pain - Vitals Vitals: Last Vital Signs Temp 36.4 C 12/05/17 12:21 Pulse 79 12/05/17 13:16 Resp 20 12/05/17 12:45 BP 160/78 H 12/05/17 13:16 Pulse Ox 92 L 12/05/17 12:45 - Abnormal Lab Findings Abnormal Lab Findings: Abnormal Lab Results 12/04/17 12/04/17 12/04/17 Range/Units 11:38 Unknown Unknown RBC (4.7-6.0) M/mm3 Hgb 8.3 L (13.5-18.0) gm/dL Hct 26.8 L (42.0-52.0) % MCHC (32-36) g/dl RDW (11.5-14.0) % Immature Gran % (Auto) (0.001-0.429) % Immature Gran # (Auto) (0.000-0.0310) K/mm3 PT (9.0-11.0) Seconds INR (Anticoag Therapy) (0.90-1.10) INR Sodium (132-142) mmol/L Plasma Sodium (130-142) mmol/L Potassium (3.4-4.6) mmol/L Est GFR (Non-Af Amer) (60-130) mL/min Stool Occult Blood Positive H Crossmatch See Detail 12/05/17 12/05/17 12/05/17 Range/Units 00:30 05:15 05:15 RBC 3.13 L (4.7-6.0) M/mm3 Hgb 8.8 L 8.6 L (13.5-18.0) gm/dL Hct 28.2 L 27.8 L (42.0-52.0) % MCHC 30.9 L (32-36) g/dl RDW 15.8 H (11.5-14.0) % Immature Gran % (Auto) 0.50 H (0.001-0.429) % Immature Gran # (Auto) 0.04 H (0.000-0.0310) K/mm3 PT 30.3 H (9.0-11.0) Seconds INR (Anticoag Therapy) 3.00 H (0.90-1.10) INR Sodium (132-142) mmol/L Plasma Sodium (130-142) mmol/L Potassium (3.4-4.6) mmol/L Est GFR (Non-Af Amer) (60-130) mL/min Stool Occult Blood Crossmatch 12/05/17 Range/Units 05:15 RBC (4.7-6.0) M/mm3 Hgb (13.5-18.0) gm/dL Hct (42.0-52.0) % MCHC (32-36) g/dl RDW (11.5-14.0) % Immature Gran % (Auto) (0.001-0.429) % Immature Gran # (Auto) (0.000-0.0310) K/mm3 PT (9.0-11.0) Seconds INR (Anticoag Therapy) (0.90-1.10) INR Sodium 143 H (132-142) mmol/L Plasma Sodium 143 H (130-142) mmol/L Potassium 3.1 L (3.4-4.6) mmol/L Est GFR (Non-Af Amer) 53 L (60-130) mL/min Stool Occult Blood Crossmatch - Exam Constitutional: Present: Alert, Oriented x3, Cooperative, Elderly ENT Exam: Present: hard of hearing Neck: Present: supple Respiratory: Present: decreased breath sounds, No rales, No wheezing Cardiovascular/Chest: Present: no JVD, no murmur, irregularly irregular Abdomen: Present: Normal bowel sounds, soft, nontender, distended, hypoactive Extremity: Present: no calf tenderness, lower extremity edema Assessment/Plan - Problems/Diagnosis (1) Shortness of breath Problem: Acute Narrative: improved/ on diuretics and received BT for his anemia. (2) Anemia Problem: Acute Qualifiers: Anemia type: unspecified type Qualified Code(s): D64.9 - Anemia, unspecified Narrative: s/p BT and FFP. s/p EGD for colonoscopy tomorrow (3) Supratherapeutic INR Problem: Acute Narrative: s/p FFP and Vit K - INR down to 3 (4) CHF (congestive heart failure) Problem: Acute Qualifiers: Heart failure type: combined systolic and diastolic Heart failure chronicity: acute on chronic Qualified Code(s): I50.43 - Acute on chronic combined systolic (congestive) and diastolic (congestive) heart failure (5) HTN (hypertension) Problem: Chronic Qualifiers: Hypertension type: essential hypertension Qualified Code(s): I10 - Essential (primary) hypertension Narrative: will increase losartan (6) HLD (hyperlipidemia) Problem: Chronic Qualifiers: Hyperlipidemia type: mixed hyperlipidemia Qualified Code(s): E78.2 - Mixed hyperlipidemia (7) Crohns disease Problem: Chronic Narrative: for colonoscopy tomorrow. (8) Blind right eye Problem: Chronic (9) Hypothyroidism Problem: Acute Qualifiers: Hypothyroidism type: acquired Qualified Code(s): E03.9 - Hypothyroidism, unspecified
--- NOTE | 2017-12-05 14:40 | ANES ---
Post Anesthesia Assessment - Vital Signs Vitals: Last Vital Signs Temp 36.4 C 12/05/17 12:21 Pulse 79 12/05/17 13:16 Resp 20 12/05/17 12:45 BP 160/78 H 12/05/17 13:16 Pulse Ox 92 L 12/05/17 12:45 Airway Patency: Normal - Mental Status Level Of Consciousness: Awake - Pain Level Pain Score: 0 - N/V Assessment Nausea/Vomiting Presence: None Dehydration:: No
[2017-12-05] MEDS ORDERED: TAMSULOSIN HCL 0.4 MG CAP.SR.24H PO SCH (18:00)
[2017-12-05] MEDS ORDERED: MAG HYDROX/ALUMINUM HYD/SIMETH 148 ML BTL PO PRN (20:12)
[2017-12-05] MEDS ORDERED: MAG HYDROX/ALUMINUM HYD/SIMETH 30 ML UDC PO PRN (20:49)
[2017-12-05] MEDS: CARVEDILOL 12.5 MG TABLET PO SCH (20:59)
[2017-12-05] MEDS ORDERED: LOSARTAN POTASSIUM 50 MG TABLET PO SCH (21:00)
[2017-12-05] MEDS: ACETAMINOPHEN 325 MG TABLET PO PRN (21:04)
[2017-12-06 05:27] LABS: Hemoglobin 9.5 gm/dL (13.5-18.0); Mean Cell Volume 87.2 fl (78-100); Mean Corpuscular Hemoglobin 27.6 pg (27-31); Mean Corpuscular Hgb Conc 31.7 g/dl (32-36); Mean Platelet Volume 10.2 fl (8-11.3); Neutrophil # 7.2 K/mm3 (1.3-6.0); Neutrophil % 67.5 % (42-75.0); Platelet Count 270 K/mm3 (150-450); Red Blood Count 3.44 M/mm3 (4.7-6.0); Red Cell Distribution Width 15.6 % (11.5-14.0); White Blood Count 10.7 K/mm3 (4.0-10.5)
[2017-12-06 05:36] LABS: Prothrombin Time (Patient) 17.9 Seconds (9.0-11.0)
--- NOTE | 2017-12-06 05:36 | PN ---
Subjective - Date and Time Seen Date: 12/06/17 Time: 05:33 Subjective Narrative: Pt seen this am. Has no complaints. No acute events overnight. Awaiting colonoscopy today. Objective - Vitals Vitals: Last Vital Signs Temp 36.7 C 12/06/17 03:00 Pulse 77 12/06/17 03:00 Resp 18 12/06/17 03:00 BP 146/70 12/06/17 03:00 Pulse Ox 94 12/06/17 03:00 - Abnormal Lab Findings Abnormal Lab Findings: Abnormal Lab Results 12/06/17 Range/Units 05:15 WBC 10.7 H D (4.0-10.5) K/mm3 RBC 3.44 L (4.7-6.0) M/mm3 Hgb 9.5 L (13.5-18.0) gm/dL Hct 30.0 L (42.0-52.0) % MCHC 31.7 L (32-36) g/dl RDW 15.6 H (11.5-14.0) % Immature Gran % (Auto) 0.50 H (0.001-0.429) % Immature Gran # (Auto) 0.05 H (0.000-0.0310) K/mm3 Neutrophils # 7.2 H (1.3-6.0) K/mm3 - Exam Constitutional: Present: Alert, Oriented x3, Cooperative, No distress ENT Exam: Present: hard of hearing Neck: Present: non-tender, full range of motion Breasts: Present: Exam deferred Respiratory: Present: chest non-tender, lungs clear, normal breath sounds Cardiovascular/Chest: Present: normal peripheral pulses, regular rate, rhythm, no chest tenderness Abdomen: Present: Normal bowel sounds, soft, nontender /Rectal: Present: Exam deferred Extremity: Present: normal range of motion, non-tender, normal inspection, no pedal edema, no calf tenderness Skin Exam: Present: warm/dry, no cyanosis Lymphatic: Present: no adenopathy Neurologic: Present: no motor/sensory deficits, alert, normal mood/affect Appearance: Present: appropriate appearance, appropriate insight Eye contact: Present: cooperative, good eye contact, normal speech Thoughts: Present: normal thought pattern, no apparent hallucination Assessment/Plan - Problems/Diagnosis (1) Anemia Problem: Acute Qualifiers: Anemia type: unspecified type Qualified Code(s): D64.9 - Anemia, unspecified Narrative: Received 2 units of PRBCs.Source of blood loss unknown; EGD was normal, occult stool was negative. Awaiting colonoscopy today by Dr. Mejia Laboratory Tests 12/04/17 12/04/17 12/05/17 10:45 Unknown 00:30 Hgb 6.8 L* D 8.3 L 8.8 L 12/05/17 12/06/17 05:15 05:15 Hgb 8.6 L 9.5 L (2) Supratherapeutic INR Problem: Acute Narrative: Given 1 units of FFP, Oral anticoagulation on hold for now. Consult pharmacy to manage dose. Laboratory Tests 12/04/17 12/05/17 12/06/17 10:45 05:15 05:15 INR (Anticoag Therapy) 8.12 H* 3.00 H 1.78 H (3) CHF (congestive heart failure) Problem: Chronic Qualifiers: Heart failure type: combined systolic and diastolic Heart failure chronicity: acute on chronic Qualified Code(s): I50.43 - Acute on chronic combined systolic (congestive) and diastolic (congestive) heart failure Narrative: Diuresed following blood product transfusion. (4) Crohn's disease Problem: Chronic Qualifiers: Digestive disease complication type: unspecified complication (5) Hypothyroidism Problem: Chronic Qualifiers: Hypothyroidism type: acquired Qualified Code(s): E03.9 - Hypothyroidism, unspecified (6) Gout Problem: Chronic Qualifiers: Gout site: unspecified site Gout etiology: unspecified cause Chronicity: chronic Presence of tophus: with tophus Qualified Code(s): [id number] - Chronic gout, unspecified, with tophus (tophi) (7) HLD (hyperlipidemia) Problem: Chronic Qualifiers: Hyperlipidemia type: mixed hyperlipidemia Qualified Code(s): E78.2 - Mixed hyperlipidemia (8) HTN (hypertension) Problem: Chronic Qualifiers: Hypertension type: essential hypertension Qualified Code(s): I10 - Essential (primary) hypertension
[2017-12-06 05:37] LABS: INR 1.78 INR (0.90-1.10)
[2017-12-06] MEDS ORDERED: RINGER'S SOLUTION,LACTATED 1,000 ML IV PRN (06:00)
--- NOTE | 2017-12-06 07:38 | ANES ---
Anesthesia Pre Procedure Eval Vitals/Labs: Last Vital Signs Temp 36.9 C 12/06/17 07:15 Pulse 79 12/06/17 07:15 Resp 16 12/06/17 07:15 BP 139/67 12/06/17 07:15 Pulse Ox 95 12/06/17 07:15 HOME MEDICATIONS Acetaminophen [Tylenol Arthritis] 1,300 mg PO BID PRN 07/16/17 [Last Taken Unknown] Nitroglycerin [Nitrostat] 0.4 mg SL Q5MIN PRN #1 btl 10/09/17 [Last Taken Unknown] Sodium Bicarbonate 650 mg PO BIDWM #14 tab 11/01/17 [Last Taken Unknown] albuterol sulfate HFA 90 mcg/actuation aerosol inhaler 1 inh IH 6XD #8.5 g 11/03 [Last Taken Unknown] levothyroxine 75 mcg tablet 75 mcg PO 0700 #90 tab 11/03/17 [Last Taken Unknown] allopurinol 300 mg tablet 300 mg PO DAILY #90 tab 11/10/17 [Last Taken Unknown] carvedilol 25 mg tablet 12.5 mg PO BID #30 tab 11/25/17 [Last Taken Unknown] tamsulosin 0.4 mg capsule 0.4 mg PO DAILY@1800 #60 cap 11/25/17 [Last Taken Unknown] warfarin 5 mg tablet 5 mg PO DAILY #30 tab 11/26/17 [Last Taken Unknown] losartan 50 mg tablet 50 mg PO DAILY #30 tab 11/27/17 [Last Taken Unknown] isosorbide mononitrate ER 30 mg tablet,extended release 24 hr 30 mg PO DAILY # 30 tab 12/03/17 [Last Taken Unknown] Amlodipine Besylate 5 mg PO BID 12/04/17 [Last Taken Unknown] Apixaban [Eliquis] 5 mg PO BID 12/04/17 [Last Taken Unknown] Finasteride [Proscar] 5 mg PO DAILY 12/04/17 [Last Taken Unknown] Ondansetron [Zofran Odt] 4 mg PO Q4H PRN 12/04/17 [Last Taken Unknown] Potassium Chloride [K-Dur] 20 meq PO DAILY 12/04/17 [Last Taken Unknown] Spironolactone 50 mg PO DAILY 12/04/17 [Last Taken Unknown] Valsartan 80 mg PO HS 12/04/17 [Last Taken Unknown] hydrALAZINE HCL [Hydralazine HCl] 10 mg PO TID 12/04/17 [Last Taken Unknown] Allergies/Adverse Reactions: Allergies Allergy/AdvReac Type Severity Reaction Status Date / Time fenofibrate,micronized AdvReac Intermediate chest pain Verified 12/04/17 10:35 [From Tricor] "heart hurts" IVP Dye AdvReac Intermediate swollen Uncoded 12/04/17 10:35 face - Planned Procedure Planned Procedure: colonoscopy Medication List Reviewed:: Yes Allergies Verified: Yes Medical History (Last Reviewed 12/05/17 @ 09:26 by Martir Noe CRNA) Vitamin B12 deficiency (Chronic) Onset Date: ~11/23/15 Hypothyroidism (Chronic) Onset Date: Unknown HTN (hypertension) (Chronic) Onset Date: Unknown HLD (hyperlipidemia) (Chronic) Onset Date: Unknown Crohns disease (Chronic) Onset Date: Unknown Chronic kidney disease (CKD) stage G1/A2, glomerular filtration rate (GFR) equal to or greater than 90 mL/min/1.73 square meter and albuminuria creatinine ratio between 30-299 mg/g (Chronic) Onset Date: Unknown Blind right eye (Chronic) Onset Date: Unknown Atrial fibrillation COPD (chronic obstructive pulmonary disease) Degenerative joint disease of right knee Onset Date: Unknown Gout Onset Date: Unknown H/O echocardiogram Onset Date: ~10/15/17 Macular degeneration Onset Date: Unknown Small bowel obstruction Onset Date: ~07/2016 Surgical History (Last Reviewed 12/05/17 @ 09:26 by Martir Noe CRNA) Cataract Onset Date: ~1997 Finger amputation, 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 Mother No problems noted. - Airway/Neck/Teeth Within Normal Limits:: Yes Denture Type: Full- Upper & Lower Mallampatti Score: 2 Thyromental (T-M) distance: > 6 cm Mandibulo Hyoid distance: > 3 cm - Respiratory Respiratory: decreased breath sounds, wheezing Discussed smoking cessation including day of surgery: No Sleep Apnea currently treated: No Sleep Apnea by current assessment: No Discussed Risks/Treatment of ANNA: No - Cardiovascular Tolerates Activity: Poor Heart Sounds: S1 & S2, Irregular - Anesthesia Assessment and Plan ASA Class: III Anesthesia Type Plan: MAC
--- NOTE | 2017-12-06 08:40 | ANES ---
Post Anesthesia Discharge - Transfer of Care Transfer of Care handoff given to nurse: Yes - Discharge from PACU Discharge from PACU when meets criteria: Yes - Discharge to ASU Discharge to ASU-no complications/pt stable: Yes
--- NOTE | 2017-12-06 08:41 | ANES ---
Post Anesthesia Assessment - Vital Signs Vitals: Last Vital Signs Temp 36.7 C 12/06/17 08:32 Pulse 78 12/06/17 08:32 Resp 16 12/06/17 08:32 BP 118/56 12/06/17 08:32 Pulse Ox 93 12/06/17 08:32 Airway Patency: Normal - Mental Status Level Of Consciousness: Awake - Pain Level Pain Score: 0 - N/V Assessment Nausea/Vomiting Presence: None Dehydration:: No
[2017-12-06] MEDS ORDERED: VITS A AND D/WHITE PET/LANOLIN 60 APPL TUBE TP PRN (08:43)
[2017-12-06] MEDS: LEVOTHYROXINE SODIUM 75 MCG TABLET PO SCH (08:49)
[2017-12-06] MEDS: SPIRONOLACTONE 25 MG TABLET PO SCH (08:49)
[2017-12-06] MEDS: CARVEDILOL 12.5 MG TABLET PO SCH (08:50)
[2017-12-06] MEDS: LOSARTAN POTASSIUM 50 MG TABLET PO SCH (08:50)
[2017-12-06] MEDS: hydrALAZINE HCL 10 MG TABLET PO SCH (08:50)
--- NOTE | 2017-12-06 08:50 | OR ---
Operative Report - Dictated Report Narrative: Date of Service: 12/06/17 Procedure: colonoscopy with biopsy Pre-procedure diagnosis: GI bleed, anemia, crohns Post-procedure diagnosis: crohns, diverticulosis, anal ulceration, no source for GI bleed Surgeon: Mitesh ZarateO. Anesthesia: MAC Indication for procedure: Mr. nolasco is a very pleasant 82-year-old gentleman with Crohn's disease and a GI bleed. He was recently started on Coumadin and his INR was supratherapeutic. It has now normalized, his hemoglobin is leveling out. He is starting to feel better. We are doing a colonoscopy today to evaluate for a source of blood loss. Description of procedure: After appropriate informed consent was obtained, patient was taken to the endoscopy suite placed in the left lateral decubitus position. Monitors were applied, appropriate sedation was achieved. A digital rectal exam was done which showed a somewhat stenotic anus, with ulceration and irritation. A lubricated colonoscope was inserted and advanced to the cecum. The appendiceal orifice was identified, I was unable to advance the scope into the anastomosis. The scope was slowly and sequentially withdrawn. Mild diverticulosis was present. There was no source for the GI blood loss. There was minimal bleeding at the anus, from irritation, likely from the bowel prep. Complications: none Specimens to pathology: right and left colon biopsies Estimated blood loss: minimal Prep quality: excellent Disposition:
[2017-12-06] MEDS: amLODIPine BESYLATE 5 MG TABLET PO SCH (08:51)
[2017-12-06] MEDS: ISOSORBIDE MONONITRATE 30 MG TAB.SR.24H PO SCH (08:51)
[2017-12-06] MEDS: FINASTERIDE 5 MG TABLET PO SCH (08:51)
[2017-12-06] MEDS: POTASSIUM CHLORIDE 20 MEQ TABLET.SA PO SCH (08:51)
[2017-12-06] MEDS: ALLOPURINOL 300 MG TABLET PO SCH (08:52)
[2017-12-06] MEDS: SODIUM BICARBONATE 650 MG TABLET PO SCH (08:52)
[2017-12-06 09:35] LABS: Anion Gap 8.8 mmol/L (6.8-13.8); BUN/Creatinine Ratio 13.1 (9.0-21.6); Calcium * 9.1 mg/dL (7.9-10.9); Carbon Dioxide 33.5 mmol/L (24-32.6); Estimated Creat Clear 43.8; Potassium 3.3 mmol/L (3.4-4.6)
[2017-12-06] MEDS ORDERED: POTASSIUM CHLORIDE 10 MEQ TABLET.SA PO ONE (10:04)
--- NOTE | 2017-12-06 10:22 | DS ---
(1) Shortness of breath Diagnosis(s): improved Problem: Acute (2) Anemia Diagnosis(s): stable. Problem: Acute Qualifiers: Anemia type: unspecified type Qualified Code(s): D64.9 - Anemia, unspecified (3) Supratherapeutic INR Diagnosis(s): now nontherapeutic. Problem: Acute (4) CHF (congestive heart failure) Diagnosis(s): continue with diuretics. Problem: Chronic Qualifiers: Heart failure type: combined systolic and diastolic Heart failure chronicity: acute on chronic Qualified Code(s): I50.43 - Acute on chronic combined systolic (congestive) and diastolic (congestive) heart failure (5) HTN (hypertension) Problem: Chronic Qualifiers: Hypertension type: essential hypertension Qualified Code(s): I10 - Essential (primary) hypertension (6) HLD (hyperlipidemia) Problem: Chronic Qualifiers: Hyperlipidemia type: mixed hyperlipidemia Qualified Code(s): E78.2 - Mixed hyperlipidemia (7) Crohns disease Problem: Chronic (8) Blind right eye Problem: Chronic (9) Hypothyroidism Problem: Chronic Qualifiers: Hypothyroidism type: acquired Qualified Code(s): E03.9 - Hypothyroidism, unspecified Description of Stay: Hamilton Finney, is an 82-year-old white male, patient of Dr. Santoyo, with past medical history of Atrial Fibrillation, hypertension, hyperlipidemia, hypothyroidism, small bowel resection for Crohn's disease, chronic renal failure stage III, who was admitted on 12/04/2017 because of increasing shortness of breath and edema. He said he has had this on and off shortness of breath for a couple of times now but this time he has been having trouble getting around the house. His legs have been swelling up. He denies any history of congestive heart failure saying that nobody ever told him that he had it. He denied any chest pain. He is not sure if he has been having any change in the color of his stool as he is legally blind. He has not had any nausea or vomiting. In the emergency room he was found to have a hemoglobin of 6.8 down from 11, 2 months ago and 9.6, 1 month ago. He was also found to have an elevated BNP and an INR of 8.1 from coumadin. His initial stool or occult blood was negative but a follow up one was positive. He received 2 units of PRBC and FFP, Vit. k. He underwent EGD and colonoscopy and there was no active bleeding site. Dr. Mejia feels a pill endoscopy might get stuck because of his Crohn's diseae. if his Hb keeps on going down again he will need to be referred to [facility]. Anemia work up was not done as he already had 1 unit of PRBC which will mess up with the results by the time I saw him. He also got IV diuresis with Lasix and his edema has significantly gone down and his SOB got better with the BT and the diuresis. We will hold his Coumadin for now . Will discharge him today and follow up with his PCP in 1 week. Procedures Performed: see notes below List Procedures: EGD and colonoscopy Results and Findings: Lab Pending Results 12/04/17 10:45: WBC 8.2, RBC 2.56 L, Hgb 6.8 L* D, Hct 22.6 L*, MCV 88.3, MCH 26.6 L, MCHC 30.1 L, RDW 15.9 H, Plt Count 255, MPV 9.9, Neutrophils % (Manual) 71, Lymphocytes % (Manual) 22, Monocytes % (Manual) 5, Eosinophils % (Manual) 2 , Neutrophils # (Manual) 5.8, Lymphocytes # (Manual) 1.8, Monocytes # (Manual) 0.4, Eosinophils # (Manual) 0.2, Hypochromasia Trace, Elliptocytes Trace 12/04/17 10:45: Sodium 140, Plasma Sodium 140, Potassium 3.5 D, Chloride 107 H , Carbon Dioxide 24.8, Anion Gap 11.7, BUN 20, Creatinine 1.51 H, Est GFR (Non- Af Amer) 47 L, BUN/Creatinine Ratio 13.2, Random Glucose 130 H, Calcium 8.2, Calcium Adj for Albumin 8.9, Total Bilirubin 0.3, AST 14, ALT 15 L, Alkaline Phosphatase 69, B-Natriuretic Peptide 1285 H, Total Protein 6.0 L, Albumin 2.7 L 12/04/17 10:45: PT 82.9 H, INR (Anticoag Therapy) 8.12 H* 12/04/17 11:38: Blood Type O Positive, Antibody Screen Negative, Crossmatch See Detail 12/04/17 11:40: Stool Occult Blood Negative 08/09/18 : Troponin I 0.030 12/04/17 : Hgb 8.3 L, Hct 26.8 L 12/04/17 : Stool Occult Blood Positive H 12/05/17 00:30: Hgb 8.8 L, Hct 28.2 L 12/05/17 05:15: WBC 8.4, RBC 3.13 L, Hgb 8.6 L, Hct 27.8 L, MCV 88.8, MCH 27.5, MCHC 30.9 L, RDW 15.8 H, Plt Count 224, MPV 8.9, Immature Gran % (Auto) 0.50 H, Immature Gran # (Auto) 0.04 H, Neutrophils % 67.4, Lymphocytes % 22.0, Monocytes % 8.3, Eosinophils % 1.3, Basophils % 0.5, Nucleated RBC % 0.0, Neutrophils # 5.7, Lymphocytes # 1.85, Monocytes # 0.7, Eosinophils # 0.1, Absolute Basophils 0.0 12/05/17 05:15: PT 30.3 H, INR (Anticoag Therapy) 3.00 H 12/05/17 05:15: Sodium 143 H, Plasma Sodium 143 H, Potassium 3.1 L, Chloride 105 , Carbon Dioxide 29.1, Anion Gap 12.0, BUN 19, Creatinine 1.37, Est GFR (Non-Af Amer) 53 L, BUN/Creatinine Ratio 13.9, Random Glucose 89 D, Calcium 8.4 12/06/17 05:15: WBC 10.7 H D, RBC 3.44 L, Hgb 9.5 L, Hct 30.0 L, MCV 87.2, MCH 27.6, MCHC 31.7 L, RDW 15.6 H, Plt Count 270, MPV 10.2, Immature Gran % (Auto) 0.50 H, Immature Gran # (Auto) 0.05 H, Neutrophils % 67.5, Lymphocytes % 22.6, Monocytes % 8.1, Eosinophils % 0.9, Basophils % 0.4, Nucleated RBC % 0.0, Neutrophils # 7.2 H, Lymphocytes # 2.41, Monocytes # 0.9, Eosinophils # 0.1, Absolute Basophils 0.0 12/06/17 05:15: PT 17.9 H, INR (Anticoag Therapy) 1.78 H 08/11/18 : Sodium 144 H, Plasma Sodium 144 H, Potassium 3.3 L, Chloride 105, Carbon Dioxide 33.5 H, Anion Gap 8.8, BUN 16, Creatinine 1.22, Est GFR (Non-Af Amer) 60, BUN/Creatinine Ratio 13.1, Random Glucose 91, Calcium 9.1 Disposition: Home self-care Condition: Stable Discharge Activity: Activity as tolerated Discharge Diet: Low salt Referrals: Jim Santoyo DO [Primary Care Provider] - Additional Patient Instructions (free text): -Please make TCM appointment unless correction discharge. Thank you! Liana @ [phone]. Follow up with PCP in 1 week with repeat CHCb/BMP/BNP. Prescriptions (Any new or edited meds): Furosemide [Lasix] 40 mg PO DAILY #30 tab Losartan Potassium [Cozaar] 100 mg PO DAILY 1 Days #30 tab Complete Home Medications List: Complete Home Medication List: Acetaminophen [Tylenol Arthritis] 1,300 mg PO BID PRN 07/16/17 Nitroglycerin [Nitrostat] 0.4 mg SL Q5MIN PRN #1 btl 10/09/17 Sodium Bicarbonate 650 mg PO BIDWM #14 tab 11/01/17 albuterol sulfate HFA 90 mcg/actuation aerosol inhaler 1 inh IH 6XD #8.5 g 11/03 levothyroxine 75 mcg tablet 75 mcg PO 0700 #90 tab 11/03/17 allopurinol 300 mg tablet 300 mg PO DAILY #90 tab 11/10/17 carvedilol 25 mg tablet 12.5 mg PO BID #30 tab 11/25/17 tamsulosin 0.4 mg capsule 0.4 mg PO DAILY@1800 #60 cap 11/25/17 isosorbide mononitrate ER 30 mg tablet,extended release 24 hr 30 mg PO DAILY # 30 tab 12/03/17 Finasteride [Proscar] 5 mg PO DAILY 12/04/17 Ondansetron [Zofran Odt] 4 mg PO Q4H PRN 12/04/17 Spironolactone 50 mg PO DAILY 12/04/17 hydrALAZINE HCL [Hydralazine HCl] 10 mg PO TID 12/04/17 Furosemide [Lasix] 40 mg PO DAILY #30 tab 12/06/17 Losartan Potassium [Cozaar] 100 mg PO DAILY 1 Days #30 tab 12/06/17 Amb Orders for Discharge: Basic Metabolic Panel Time Frame: 3 Days, Location: None Selected CBC Time Frame: 3 Days, Location: None Selected BNP * Time Frame: 3 Days, Location: None Selected Prothrombin Time Time Frame: 3 Days, Location: None Selected
[2017-12-06 13:03] VITALS: BP 180/64
--- NOTE | 2017-12-08 05:34 | PATH ---
PHYSICIAN: Germain Campos MD / Rosy Mejia DO LAB#: [id number] SPECIMEN DATE: 12/05/2017 SPECIMEN: Antrum CLINICAL INFORMATION: The patient is an 82-year-old man with anemia and GI bleeding. The patient underwent EGD with biopsy and MONIQUE test. EGD FINDINGS: Normal. GROSS DESCRIPTION: The specimen is received in a formalin-filled container appropriately designated "antrum." Specimen consists of a 0.2 cm poe-patterson fragment of soft tissue. Specimen is entirely submitted as received in a single cassette. DIAGNOSIS: STOMACH, ANTRUM, EGD BIOPSY: -ANTRAL TYPE MUCOSA WITH MINIMAL GASTROPATHY/CHEMICAL GASTRITIS, SEE COMMENT COMMENT: CLOtest and stains for Helicobacter pylori are negative. No intestinal metaplasia is identified by Alcian blue stain. There is minimal edema and early fibrosis/muscular hyperplasia of the lamina propria with evidence of minimal hyperemia. Lamina propria lymphocytic and plasmacytic infiltrate is sparse. Gastric glands show regenerative changes. The findings suggest nonspecific chemical injury to the gastric mucosa and clinical correlation is needed to determine the exact etiology (differential considerations include nonsteroidal anti-inflammatory agents, alcohol or bile reflux changes). No acute inflammation or ulceration is present. No evidence of dysplasia or malignant neoplasia.
== END 2017-12-06 13:05 | disposition home or self-care (01) | DRG 292 ==
LOC: MS 10:23 → ER 10:23 → MS 14:15
PROVIDERS: ADMIT Internal Medicine; ATTEND Internal Medicine
DX: Z79.01 Long term (current) use of anticoagulants; H54.40 Blindness, one eye, unspecified eye; D62 Acute posthemorrhagic anemia; I48.2 Chronic atrial fibrillation; K50.90 Crohn's disease, unspecified, without complications; N18.3 Chronic kidney disease, stage 3 (moderate); I50.43 Acute on chronic combined systolic (congestive) and diastolic (congestive) heart failure; I12.9 Hypertensive chronic kidney disease with stage 1 through stage 4 chronic kidney disease, or unspecified chronic kidney disease; Z91.041 Radiographic dye allergy status; Z88.8 Allergy status to other drugs, medicaments and biological substances; E78.2 Mixed hyperlipidemia; Z79.82 Long term (current) use of aspirin; D50.0 Iron deficiency anemia secondary to blood loss (chronic); K57.30 Diverticulosis of large intestine without perforation or abscess without bleeding
CPT/HCPCS: 36415; 36430; 71020; 71046; 80048; 80053; 82272; 83519; 83880; 84484; 85014; 85018; 85025; 85610; 86850; 86900; 87081; 88305; 88312; 88313; 93005; 94640; 94664; 94760; 96374; 99285; P9016

== ENCOUNTER 2018-05-01 08:43 | Observation (INO) | payer MEDICARE, OTHER ==
[2018-05-01] MEDS ORDERED: ACETAMINOPHEN 650 MG TABLET PO PRN (09:29)
[2018-05-01] MEDS ORDERED: ONDANSETRON HCL/PF 2 MG/ML VIAL IV PRN (09:31)
--- NOTE | 2018-05-01 09:33 | HP ---
Chief Complaint - Chief Complaint Date of Service: 05/01/18 Time of Service: 09:32 Chief Complaint: diarrhea, vomiting History of Present Illness: Patient with PMHx of afib, CKD, anemia, Crohn's, CHF was seen in the clinic for 3 days of diarrhea increased from baseline, and vomiting that started this morning. He was seen in the office a few weeks ago, and was given a short course of steroids for a Crohn's flare, and hasn't felt well since then. His appetite is decreased, and he is starting to get week. His urination was decreased two days ago, better yesterday, and decreased again today. He does not think he's had a fever or had sick contacts. He will be admitted for gentle hydration. Medical History (Last Reviewed 05/01/18 @ 08:51 by Monie Siegel RN) GI bleed (Acute) Vitamin B12 deficiency (Chronic) Onset Date: ~11/23/15 Hypothyroidism (Chronic) Onset Date: Unknown HTN (hypertension) (Chronic) Onset Date: Unknown HLD (hyperlipidemia) (Chronic) Onset Date: Unknown Crohns disease (Chronic) Onset Date: Unknown s/p resection x 2 Chronic kidney disease (CKD) stage G1/A2, glomerular filtration rate (GFR) equal to or greater than 90 mL/min/1.73 square meter and albuminuria creatinine ratio between 30-299 mg/g (Chronic) Onset Date: Unknown GFR-52 Blind right eye (Chronic) Onset Date: Unknown Legally Atrial fibrillation COPD (chronic obstructive pulmonary disease) Degenerative joint disease of right knee Onset Date: Unknown bilateral Gout Onset Date: Unknown H/O echocardiogram Onset Date: ~10/15/17 Mild concentric LT ventricular hypertrophy EF 45-50%. Mild septal hypokinesis LT atrium moderately dilated. Macular degeneration Onset Date: Unknown LT eye; Retinal detachment RT eye 2002. Small bowel obstruction Onset Date: ~07/2016 Surgical History: Surgical History (Last Reviewed 05/01/18 @ 08:51 by Monie Siegel RN) Cataract Onset Date: ~1997 bilateral 1992, 1997 Finger amputation, no complication Onset Date: ~1988 H/O hemorrhoidectomy Onset Date: ~1979 History of appendectomy Onset Date: ~1959 History of bowel resection Onset Date: ~1980 1963, 1980 due to blockage-crohns History of colonoscopy Onset Date: ~09/04/04 [facility] [place]- anal stenosis and stricture, otherwise neg. 11/2017- [facility] History of tonsillectomy Onset Date: Unknown as child Ingrown toenail Onset Date: ~06/2015 removal Family History: Family History (Last Reviewed 05/01/18 @ 08:51 by Monie Siegel RN) Father , 94-CHF, CRF No problems noted. Mother , 60-cancer of brain, DM No problems noted. Social History: Preferred Language Italian Smoking Status Former smoker Abuse History No History of abuse Psych History No pertinent hx (Last Updated 05/01/18 @ 09:26 by Liana Ramirez DO) No Social History Section defined Review Of Systems (GEN) - Review of Systems Generalized/Overall Review: Present: Weakness. Absent: Fever Respiratory: Absent: Cough, Shortness of Breath Cardiac: Present: Edema. Absent: Chest Pain, Palpitations Abdominal: Present: Nausea, Vomiting, Abdominal Pain, Diarrhea, Other - patient is blind and can not see if there is blood in his stool Genitourinary: Present: Oliguria Immunizations: IMMUNIZATION HX Immunizations Up to Date No History of Influenza Vaccine Yes Hx Pneumococcal Vaccination Yes Allergies/Adverse Reactions: Allergies Allergy/AdvReac Type Severity Reaction Status Date / Time fenofibrate,micronized AdvReac Intermediate chest pain Verified 05/01/18 08:59 [From Tricor] "heart hurts" IVP Dye AdvReac Intermediate swollen Uncoded 01/15/18 15:09 face Home Medications: HOME MEDICATIONS Acetaminophen [Tylenol Arthritis] 1,300 mg PO BID PRN 07/16/17 [Last Taken Unknown] Nitroglycerin [Nitrostat] 0.4 mg SL Q5MIN PRN #1 btl 10/09/17 [Last Taken Unknown] albuterol sulfate HFA 90 mcg/actuation aerosol inhaler 1 inh IH 6XD #8.5 g 11/03/17 [Last Taken Unknown] allopurinol 300 mg tablet 300 mg PO DAILY #90 tab 11/10/17 [Last Taken Unknown] carvedilol 25 mg tablet 12.5 mg PO BID #30 tab 11/25/17 [Last Taken Unknown] tamsulosin 0.4 mg capsule 0.4 mg PO DAILY@1800 #60 cap 11/25/17 [Last Taken Unknown] Finasteride [Proscar] 5 mg PO DAILY 12/04/17 [Last Taken Unknown] Losartan Potassium [Cozaar] 100 mg PO DAILY 1 Days #30 tab 12/06/17 [Last Taken Unknown] ferrous sulfate 325 mg (65 mg iron) tablet 325 mg PO DAILY #90 tab 12/12/17 [Last Taken Unknown] isosorbide mononitrate ER 30 mg tablet,extended release 24 hr 30 mg PO DAILY #30 tab 01/06/18 [Last Taken Unknown] potassium chloride ER 10 mEq tablet,extended release 20 meq PO BID #60 tab 01/26/18 [Last Taken Unknown] levothyroxine 75 mcg tablet 75 mcg PO 0700 #90 tab 02/09/18 [Last Taken Unknown] furosemide 40 mg tablet 40 mg PO DAILY #30 tab 02/27/18 [Last Taken Unknown] spironolactone 25 mg tablet 25 mg PO DAILY #60 tab 02/27/18 [Last Taken Unknown] ranitidine 150 mg tablet 150 mg PO DAILY #30 tab 04/08/18 [Last Taken Unknown] Exam - Exam Constitutional: Present: Alert, No distress - looks uncomfortable and pale Respiratory: Present: lungs clear, no respiratory distress Cardiovascular/Chest: Present: tachycardia Abdomen: Present: Normal bowel sounds, soft, tender Extremity: Present: lower extremity edema - 1+ bilaterally to the ankle Appearance: Present: appropriate insight Eye contact: Present: cooperative, good eye contact Assessment/Plan - Assessment/Plan (1) Acute diarrhea Assessment: His po intake has decreased, and he is starting to get weak. BMP and CBC pending. He is afebrile in the office. He has diarrhea at baseline with his C rohn's, but this is increased, and there is concern for electrolyte imbalance. Will administer lower than maintenance rate fluids due to his CHF, and may be able to DC the fluids this afternoon. Problem: Acute (2) Vomiting Assessment: Will administer zofran for vomiting, and give clear liquid diet. Problem: Acute Qualifiers: Vomiting type: unspecified Vomiting Intractability: unspecified Nausea presence: unspecified Qualified Code(s): R11.10 - Vomiting, unspecified (3) Crohns disease Problem: Chronic Qualifiers: Gastrointestinal tract location: unspecified location Digestive disease complication type: unspecified complication Qualified Code(s): K50.919 - Cr ohn's disease, unspecified, with unspecified complications (4) Dehydration Problem: Acute (5) CHF (congestive heart failure) Problem: Chronic Qualifiers: Heart failure type: systolic Heart failure chronicity: acute on chronic Qualified Code(s): I50.23 - Acute on chronic systolic (congestive) heart failure (6) Chronic kidney disease (CKD) stage G1/A2, glomerular filtration rate (GFR) equal to or greater than 90 mL/min/1.73 square meter and albuminuria creatinine ratio between 30-299 mg/g Assessment: His baseline creatinine is around 2.0. BMP pending. Anticipate his creatinine will be higher today, given his vomiting, diarrhea, and decreased po intake. Will administer gentle hydration, and monitor closely for fluid overload, given his CHF. Problem: Chronic
[2018-05-01] MEDS: NORMAL SALINE 1,000 ML IV PRN ×2 (10:14→19:08)
[2018-05-01] MEDS: ALBUTEROL SULFATE 2.5 MG/0.5 ML VIAL.NEB IH SCH ×5 (10:24→22:09)
[2018-05-01] MEDS: ISOSORBIDE MONONITRATE 30 MG TAB.SR.24H PO SCH (12:43)
[2018-05-01] MEDS: POTASSIUM CHLORIDE 20 MEQ TABLET.SA PO SCH ×2 (12:43→20:21)
[2018-05-01] MEDS: SPIRONOLACTONE 25 MG TABLET PO SCH (12:43)
[2018-05-01] MEDS: CARVEDILOL 12.5 MG TABLET PO SCH ×2 (12:43→20:21)
[2018-05-01] MEDS: FERROUS SULFATE 325 MG TABLET PO SCH (12:43)
[2018-05-01] MEDS: FUROSEMIDE 40 MG TABLET PO SCH (12:43)
[2018-05-01] MEDS: LOSARTAN POTASSIUM 50 MG TABLET PO SCH (12:43)
[2018-05-01] MEDS: FINASTERIDE 5 MG TABLET PO SCH (12:44)
[2018-05-01] MEDS ORDERED: PANTOPRAZOLE SODIUM 40 MG in NORMAL SALINE 100 ML IV SCH (12:45)
[2018-05-01] MEDS ORDERED: DIATRIZOATE MEGLUMINE, SODIUM 30 ML BTL PO ONE (17:53)
[2018-05-01] MEDS ORDERED: TAMSULOSIN HCL 0.4 MG CAP.SR.24H PO SCH (18:00)
[2018-05-01] MEDS: MORPHINE SULFATE 2 MG/ML DISP.SYRIN IV PRN ×2 (18:03→22:42)
[2018-05-02] MEDS: ALBUTEROL SULFATE 2.5 MG/0.5 ML VIAL.NEB IH SCH ×3 (02:39→10:58)
[2018-05-02 07:19] LABS: BUN/Creatinine Ratio 22.6 (9.0-21.6); Calcium * 8.4 mg/dL (7.9-10.9); Carbon Dioxide 13.6 mmol/L (24-32.6); Estimated Creat Clear 17.9; Potassium 4.6 mmol/L (3.4-4.6)
[2018-05-02] MEDS: SPIRONOLACTONE 25 MG TABLET PO SCH (08:26)
[2018-05-02] MEDS: CARVEDILOL 12.5 MG TABLET PO SCH (08:26)
[2018-05-02] MEDS: FERROUS SULFATE 325 MG TABLET PO SCH (08:26)
[2018-05-02] MEDS: ISOSORBIDE MONONITRATE 30 MG TAB.SR.24H PO SCH (08:27)
[2018-05-02] MEDS: LOSARTAN POTASSIUM 50 MG TABLET PO SCH (08:27)
[2018-05-02] MEDS: FUROSEMIDE 40 MG TABLET PO SCH (08:27)
[2018-05-02] MEDS: FINASTERIDE 5 MG TABLET PO SCH (08:27)
[2018-05-02] MEDS: POTASSIUM CHLORIDE 20 MEQ TABLET.SA PO SCH (08:27)
--- NOTE | 2018-05-02 09:28 | DS ---
(1) Acute diarrhea Problem: Resolved (2) Vomiting Problem: Resolved Qualifiers: Vomiting type: unspecified Vomiting Intractability: unspecified Nausea presence: unspecified Qualified Code(s): R11.10 - Vomiting, unspecified (3) Crohns disease Problem: Chronic Qualifiers: Gastrointestinal tract location: unspecified location Digestive disease complication type: unspecified complication Qualified Code(s): K50.919 - Crohn's disease, unspecified, with unspecified complications (4) Dehydration Problem: Resolved (5) CHF (congestive heart failure) Problem: Chronic Qualifiers: Heart failure type: systolic Heart failure chronicity: acute on chronic Qualified Code(s): I50.23 - Acute on chronic systolic (congestive) heart failure (6) Chronic kidney disease (CKD) stage G1/A2, glomerular filtration rate (GFR) equal to or greater than 90 mL/min/1.73 square meter and albuminuria creatinine ratio between 30-299 mg/g Problem: Chronic Description of Stay: Patient with PMHx of Crohns, renal failure, afib, CHF, was direct admitted from the clinic. He had a history of 3 days of diarrhea, and vomiting that started the day of admission. He is legally blind, and could not tell if he was having blood in his stools. He was developing weakness, and with his comorbidities, he was admitted for IV fluids and observation. He was given IV protonix, and morphine for pain control. CT abdomen/pelvis without contrast did not reveal significant abnormalities. He had an EGD in November 2017 that was normal. Will send him home with pantoprazole. He did not have further diarrhea, and his vomiting improved. He agreed to home health for medication management, and physical therapy. Will obtain outpatient ultrasound after discharge. He complained of some back pain on the day of discharge that has been present for quite some time. He is unable to drive to make PT appointments, and would recommend home physical therapy. He was evaluated for home health services on the day of discharge, 05/02/18. He is homebound due to his blindness. He has multiple comorbidites, including atrial fibrillation (not anticoagulated due to multiple GI bleeds), chronic renal disease, congestive heart failure, deconditioning. He is developing some back pain, and would benefit from physical therapy at home. Speech and occupational therapy not needed. The need for home health care skilled services is directly related to the time spent [id number] with the person. Of note, he will be switching his pharmacy to [facility] in [place]. Procedures Performed: none Results and Findings: Lab Pending Results 05/02/18 07:00: Sodium 140, Plasma Sodium 140, Potassium 4.6 D, Chloride 114 H, Carbon Dioxide 13.6 L, Anion Gap 17.0 H, BUN 67 H, Creatinine 2.97 H, Est GFR (Non-Af Amer) 22 L, BUN/Creatinine Ratio 22.6 H, Random Glucose 80, Calcium 8.4 Discharge Location: Home Disposition: [facility] Agency: [facility] Home Health Condition: Fair Discharge Activity: Activity as tolerated Discharge Diet: General/regular food Referrals: Liana Ramirez DO [Primary Care Provider] - Additional Patient Instructions (free text): -Please make TCM appointment unless chcf discharge. Thank you! Tracey @ [phone]. F/u with Dr Ramirez next week. Also keep his appointment that has been previously scheduled for the following week. [facility] new. Please call report and fax orders upon discharge. Prescriptions (Any new or edited meds): Pantoprazole Sodium [Protonix] 40 mg PO DAILY #30 tablet. Complete Home Medications List: Complete Home Medication List: Acetaminophen [Tylenol Arthritis] 1,300 mg PO BID PRN 07/16/17 Nitroglycerin [Nitrostat] 0.4 mg SL Q5MIN PRN #1 btl 10/09/17 albuterol sulfate HFA 90 mcg/actuation aerosol inhaler 1 inh IH 6XD #8.5 g 11/03/17 allopurinol 300 mg tablet 300 mg PO DAILY #90 tab 11/10/17 carvedilol 25 mg tablet 12.5 mg PO BID #30 tab 11/25/17 tamsulosin 0.4 mg capsule 0.4 mg PO DAILY@1800 #60 cap 11/25/17 Finasteride [Proscar] 5 mg PO DAILY 12/04/17 Losartan Potassium [Cozaar] 100 mg PO DAILY 1 Days #30 tab 12/06/17 ferrous sulfate 325 mg (65 mg iron) tablet 325 mg PO DAILY #90 tab 12/12/17 isosorbide mononitrate ER 30 mg tablet,extended release 24 hr 30 mg PO DAILY #30 tab 01/06/18 potassium chloride ER 10 mEq tablet,extended release 20 meq PO BID #60 tab 01/26/18 levothyroxine 75 mcg tablet 75 mcg PO 0700 #90 tab 02/09/18 furosemide 40 mg tablet 40 mg PO DAILY #30 tab 02/27/18 spironolactone 25 mg tablet 25 mg PO DAILY #60 tab 02/27/18 ranitidine 150 mg tablet 150 mg PO DAILY #30 tab 04/08/18 Pantoprazole Sodium [Protonix] 40 mg PO DAILY #30 tablet. 05/02/18
[2018-05-02 12:01] VITALS: BP 99/61
== END 2018-05-02 12:03 | disposition home health service (06) ==
LOC: CCFAL → MS 08:43
PROVIDERS: ADMIT Family Medicine; ATTEND Family Medicine
CPT/HCPCS: 36415; 74176; 80048; 80053; 85025; 94640; 96361; 96365; 96366; 96374; 96375; G0378; G0379; J2405

== ENCOUNTER 2018-10-05 18:10 | Observation (INO) ==
[2018-10-05] MEDS ORDERED: MORPHINE SULFATE 4 MG/ML SYRG IV ONE (18:33)
[2018-10-05] MEDS ORDERED: ONDANSETRON HCL/PF 2 MG/ML VIAL IV ONE (18:33)
[2018-10-05] MEDS ORDERED: NORMAL SALINE 1,000 ML IV ONE ×2 (18:33→22:43)
--- NOTE | 2018-10-05 18:39 | ERNOTE ---
Abdominal HPI - General Chief Complaint: Abdominal Pain Time Seen by Provider: 10/05/18 18:17 Source: patient Exam Limitations: no limitations - Immun/Allergies/Home Medications Immunizatons: IMMUNIZATION HX Immunizations Up to Date Yes History of Influenza Vaccine Yes Hx Pneumococcal Vaccination Yes Allergies/Adverse Reactions: Allergies fenofibrate,micronized [From [employer]] Adverse Reaction (Intermediate, Verified 10/05/18 18:20) chest pain "heart hurts" IVP Dye Adverse Reaction (Intermediate, Uncoded 10/05/18 18:20) swollen face Home Medications: HOME MEDICATIONS Nitroglycerin [Nitrostat] 0.4 mg SL Q5MIN PRN #1 btl 10/09/17 [Last Taken Unknown] allopurinol 300 mg tablet 300 mg PO DAILY #90 tab 05/07/18 [Last Taken Unknown] carvedilol 6.25 mg tablet 6.25 mg PO BID #180 tab 05/07/18 [Last Taken Unknown] finasteride 5 mg tablet 5 mg PO DAILY #90 tab 05/07/18 [Last Taken Unknown] levothyroxine 75 mcg tablet 75 mcg PO 0700 #90 tab 05/07/18 [Last Taken Unknown] tamsulosin 0.4 mg capsule 0.4 mg PO DAILY@1800 #60 cap 05/07/18 [Last Taken Unknown] cyanocobalamin (vitamin B-12) 1,000 mcg capsule 1,000 mcg PO DAILY #90 cap 06/16/18 [Last Taken Unknown] spironolactone 25 mg tablet 25 mg PO DAILY #60 tab 06/29/18 [Last Taken Unknown] isosorbide mononitrate ER 30 mg tablet,extended release 24 hr 30 mg PO DAILY #30 tab 07/13/18 [Last Taken Unknown] folic acid 1 mg tablet 1 mg PO DAILY #90 tab 08/04/18 [Last Taken Unknown] ferrous sulfate 325 mg (65 mg iron) tablet 325 mg PO DAILY #90 tab 08/05/18 [Last Taken Unknown] furosemide 40 mg tablet 40 mg PO DAILY #30 tab 08/31/18 [Last Taken Unknown] docusate sodium 100 mg capsule 100 mg PO DAILY PRN #90 cap 09/07/18 [Last Taken Unknown] pantoprazole 40 mg tablet,delayed release 40 mg PO BID #60 tab 10/01/18 [Last Taken Unknown] potassium chloride ER 10 mEq tablet,extended release(part/cryst) See Rx Instructions .ROUTE .COMPLEX #180 unspecified 10/01/18 [Last Taken Unknown] - History of Present Illness Narrative: Patient states that he started to develop some abdominal pain after lunch today. And the pain is been getting slowly progressively worse if he tries to eat anything. He rates the pain is moderate to severe in intensity and he feels somewhat bloated. Timing: constant, getting worse Quality: moderate, severe, cramping Activities at Onset: other - eating Modifying Factors - (Worsens): Present: eating Associated Symptoms: Present: other - 3 loose stools Prior Abdominal Problems: Present: similar symptoms Review of Systems - Review of Systems Constitutional: Present: See HPI EYE: Present: no symptoms reported ENT: Present: no symptoms reported Respiratory: Present: no symptoms reported Cardiology: Present: no symptoms reported Gastrointestinal/Abdominal: Present: See HPI Genitourinary: Present: no symptoms reported Musculoskeletal: Present: no symptoms reported Skin: Present: no symptoms reported Neurological: Present: no symptoms reported Endocrine: Present: no symptoms reported Hematologic/Lymphatic: Present: no symptoms reported Psych: Present: no symptoms reported Medical History (Updated 09/07/18 @ 11:26 by Liana Ramirez DO) Vitamin B12 deficiency (Chronic) Onset Date: ~11/23/15 Hypothyroidism (Chronic) Onset Date: Unknown HTN (hypertension) (Chronic) Onset Date: Unknown HLD (hyperlipidemia) (Chronic) Onset Date: Unknown Crohns disease (Chronic) Onset Date: Unknown s/p resection x 2 Chronic kidney disease (CKD) stage G1/A2, glomerular filtration rate (GFR) equal to or greater than 90 mL/min/1.73 square meter and albuminuria creatinine ratio between 30-299 mg/g (Chronic) Onset Date: Unknown GFR-52 Blind right eye (Chronic) Onset Date: Unknown Legally Atrial fibrillation COPD (chronic obstructive pulmonary disease) Degenerative joint disease of right knee Onset Date: Unknown bilateral Gout Onset Date: Unknown H/O echocardiogram Onset Date: ~10/15/17 Mild concentric LT ventricular hypertrophy EF 45-50%. Mild septal hypokinesis LT atrium moderately dilated. Macular degeneration Onset Date: Unknown LT eye; Retinal detachment RT eye 2002. 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 11/2017- [facility] History of tonsillectomy Onset Date: Unknown as child Ingrown toenail Onset Date: ~06/2015 removal Family History: Family History (Last Reviewed 10/05/18 @ 18:20 by Lisset Walker RN) Father , 94-CHF, CRF CHF (congestive heart failure) Chronic renal disease Mother , 60-cancer of brain, DM Diabetes Brain cancer Social History: Preferred Language Latvian Do you have any islam or No cultural preference? Smoking Status Former smoker Have you smoked in the past 12 No months Abuse History No History of abuse Psych History No pertinent hx Alcohol Use none Drug Use none (Last Updated 09/07/18 @ 11:27 by Liana Ramirez DO) No Social History Section defined Physical Exam - Physical Exam General Appearance: Present: wd/wn, alert, moderate distress Head Exam: Present: normal inspection, no evidence of injury Eye Exam: Normal inspection: bilateral, PERRL: bilateral Ears, Nose, Throat: Present: normal pharynx, dry mucous membranes Neck: Present: normal inspection, nontender Respiratory: Present: no respiratory distress, normal breath sounds, no accessory muscle use, chest nontender, lungs clear Cardiovascular/Chest: Present: regular rate, rhythm, no murmur, normal peripheral pulses Gastrointestinal/Abdominal: Present: nondistended, no organomegaly, tenderness, abnormal bowel sounds Rectal Exam: Present: deferred Back Exam: Present: normal inspection, normal range of motion Extremity Exam: Present: normal inspection, non-tender, no edema, normal range of motion Neurological Exam: Present: alert, oriented, normal mood/affect Skin Exam: Present: normal color, warm/dry Lymphatic Exam: Present: no adenopathy Progress - Results and Orders Patient's Lab Results:: I have reviewed the patient's lab results. - Vital Signs Patient's Vital Signs:: I have reviewed the patient's vital signs. Vital Signs: Vital Signs 10/05/18 18:22 Temperature 36.3 C Pulse Rate 76 Respiratory Rate 16 Blood Pressure 154/78 H O2 Sat by Pulse Oximetry 97 - CT/Ultrasound CT/Ultrasound Narrative: CT the abdomen pelvis reviewed by me - Progress/Reassessment Chief Complaint: Abdominal Pain Plan - Plan Plan: Patient has recurrent pancreatitis and I suspect this from the gallbladder dyskinesia that the patient has. It would appear on CT that the gallbladder is full of sludge, and in the past she has had an injection fraction of 35% of the gallbladder. As the patient has intractable nausea vomiting he will be placed in the hospital overnight, kept n.p.o., IV fluids and pain management and we will get a gallbladder ultrasound in the morning Departure Clinical Impression: Dyskinesia of gallbladder Pancreatitis Qualifiers: Chronicity: acute Pancreatitis type: biliary Acute pancreatitis complication: no infection or necrosis Qualified Code(s): K85.10 - Biliary acute pancreatitis without necrosis or infection Intractable nausea and vomiting Qualifiers: Vomiting type: unspecified Qualified Code(s): R11.2 - Nausea with vomiting, unspecified - Departure Disposition: Still a patient Condition: Fair Referrals: Liana Ramirez DO [Primary Care Provider] -
[2018-10-05 19:01] LABS: Hemoglobin 10.5 gm/dL (13.5-18.0); Mean Cell Volume 91.2 fl (78-100); Mean Corpuscular Hgb Conc 31.8 g/dl (32-36); Mean Platelet Volume 10.5 fl (8-11.3); Neutrophil # 7.2 K/mm3 (1.3-6.0); Neutrophil % 87.5 % (42-75.0); Platelet Count 173 K/mm3 (150-450); Red Blood Count 3.62 M/mm3 (4.7-6.0); Red Cell Distribution Width 18.7 % (11.5-14.0); White Blood Count 8.3 K/mm3 (4.0-10.5)
[2018-10-05 19:03] LABS: Urine Bilirubin Negative (NEGATIVE); Urine Blood Negative /ul (NEGATIVE); Urine Ketone Negative (NEGATIVE); Urine Nitrite Negative (NEGATIVE); Urine Protein Negative (NEGATIVE); Urine Specific Gravity <=1.005 SP.GR. (1.005-1.030); Urine Urobilinogen Normal (NORMAL); Urine pH 5.5 pH (5.0-7.0)
[2018-10-05 19:13] LABS: Urine Appearance Clear (CLEAR); Urine Bacteria TRACE; Urine Color Yellow; Urine RBC None Seen /hpf (0-5); Urine WBC None Seen /hpf (0-5)
[2018-10-05 19:16] LABS: Albumin * 3.4 gm/dl (3.4-5.0); Anion Gap 18.1 mmol/L (6.8-13.8); BUN/Creatinine Ratio 19.2 (9.0-21.6); Ca. Corrected For Albumin 9.1 mg/dL (8.4-10.2); Calcium * 8.9 mg/dL (7.9-10.9); Magnesium 0.8 mg/dL (1.2-2.8); Potassium 4.1 mmol/L (3.4-4.6); Total Protein 6.8 gm/dL (6.2-8.2)
[2018-10-05] MEDS ORDERED: ONDANSETRON HCL/PF 2 MG/ML VIAL IV PRN (22:31)
[2018-10-05] MEDS ORDERED: NITROGLYCERIN 0.4 MG/TAB BTL SL PRN (22:38)
[2018-10-05] MEDS ORDERED: NORMAL SALINE 1,000 ML IV PRN (22:40)
[2018-10-05] MEDS ORDERED: PANTOPRAZOLE SODIUM 40 MG in NORMAL SALINE 100 ML IV SCH (22:45)
[2018-10-05] MEDS: HYDROmorphone HCL 1 MG/ML DISP.SYRIN IV PRN (23:11)
[2018-10-06 05:41] LABS: Hematocrit 30.7 % (42.0-52.0); Hemoglobin 9.8 gm/dL (13.5-18.0); Mean Cell Volume 90.6 fl (78-100); Mean Corpuscular Hemoglobin 28.9 pg (27-31); Mean Corpuscular Hgb Conc 31.9 g/dl (32-36); Mean Platelet Volume 10.6 fl (8-11.3); Neutrophil # 15.7 K/mm3 (1.3-6.0); Neutrophil % 85.5 % (42-75.0); Platelet Count 167 K/mm3 (150-450); Red Blood Count 3.39 M/mm3 (4.7-6.0); Red Cell Distribution Width 18.7 % (11.5-14.0); White Blood Count 18.3 K/mm3 (4.0-10.5)
[2018-10-06 05:50] LABS: Albumin * 2.9 gm/dl (3.4-5.0); Anion Gap 17.6 mmol/L (6.8-13.8); BUN/Creatinine Ratio 18.2 (9.0-21.6); Bilirubin, Total 3.6 mg/dL (0.0-1.1); Ca. Corrected For Albumin 8.9 mg/dL (8.4-10.2); Calcium * 8.3 mg/dL (7.9-10.9); Potassium 4.6 mmol/L (3.4-4.6); Total Protein 6.1 gm/dL (6.2-8.2)
--- NOTE | 2018-10-06 07:52 | HP ---
Chief Complaint - Chief Complaint Date of Service: 10/06/18 Time of Service: 07:41 Chief Complaint: abdominal pain History of Present Illness: Patient with past medical history of Crohn's, A. fib, hypertension presented to the ER after several hours of mid abdominal pain. He woke up early the morning of admission not quite feeling right, but felt better after he had coffee and a sweet roll for breakfast. He ate lunch, and developed some mid abdominal pain and bloating. Denied vomiting or diarrhea. He does have Crohn's at baseline, but this has not bothered him in quite some time. He has been having regular bowel movements with a stool softener. No recent medication changes, and no exposure to sick contacts. He has opted to decline anticoagulation after having several GI bleeds. In the ED, his labwork showed signs of pancreatitis, with lipase of 451. AST elevated to 96, but normal ALT and akl phos. WBC was normal at 8.3. He did have an elevation of his creatinine to 2.4. He had CKD at baseline, with a creatinine as low as 1.76 in May of this year. He was NPO pending gallbladder US this morning. He received dilaudid and one L NS overnight. This morning, he feels better, but WBC has increased to 18.3. Creatinine remains elevated at 2.53. He was not given his home meds, and his HR increased to the 110's. His home meds were restarted this morning, allowing sips with meds. His US has been not, but not yet read. Medical History (Updated 10/06/18 @ 13:09 by Liana Ramirez DO) Vitamin B12 deficiency (Chronic) Onset Date: ~11/23/15 Hypothyroidism (Chronic) Onset Date: Unknown HTN (hypertension) (Chronic) Onset Date: Unknown HLD (hyperlipidemia) (Chronic) Onset Date: Unknown Crohns disease (Chronic) Onset Date: Unknown s/p resection x 2 Chronic kidney disease (CKD) stage G1/A2, glomerular filtration rate (GFR) equal to or greater than 90 mL/min/1.73 square meter and albuminuria creatinine ratio between 30-299 mg/g (Chronic) Onset Date: Unknown GFR-52 Blind right eye (Chronic) Onset Date: Unknown Legally Atrial fibrillation COPD (chronic obstructive pulmonary disease) Degenerative joint disease of right knee Onset Date: Unknown bilateral Gout Onset Date: Unknown H/O echocardiogram Onset Date: ~10/15/17 Mild concentric LT ventricular hypertrophy EF 45-50%. Mild septal hypokinesis LT atrium moderately dilated. Macular degeneration Onset Date: Unknown LT eye; Retinal detachment RT eye 2002. Small bowel obstruction Onset Date: ~07/2016 GI bleed (Resolved) Surgical History: Surgical History (Updated 05/21/18 @ 13:16 by Trish Lee MD) Cataract Onset Date: ~1997 bilateral 1993, 1997 Finger amputation, no complication Onset Date: ~1988 H/O hemorrhoidectomy Onset Date: ~1979 History of appendectomy Onset Date: ~1959 History of bowel resection Onset Date: ~1980 1963, 1980 due to blockage-crohns History of colonoscopy Onset Date: ~09/04/04 [facility]- anal stenosis and stricture, otherwise neg. 11/2017- [facility] History of tonsillectomy Onset Date: Unknown as child Ingrown toenail Onset Date: ~06/2015 removal Family History: Family History (Last Reviewed 10/05/18 @ 18:20 by Lisset Walker RN) Father , 94-CHF, CRF CHF (congestive heart failure) Chronic renal disease Mother , 60-cancer of brain, DM Diabetes Brain cancer Social History: Patient Lives/Resources Home Utilized Occupation retired Preferred Language Khmer Do you have any voodoo or Yes: religious cultural preference? Smoking Status Former smoker Have you smoked in the past 12 No months Do you dip or chew tobacco No Abuse History No History of abuse Psych History No pertinent hx Alcohol Use none Drug Use none (Last Updated 09/07/18 @ 11:27 by Liana Ramirez DO) No Social History Section defined Review Of Systems (GEN) - Review of Systems Generalized/Overall Review: Absent: Fever, Fatigue EENTM: Present: Other - legally blind at baseline Respiratory: Absent: Shortness of Breath Cardiac: Present: Edema. Absent: Chest Pain Abdominal: Present: Nausea, Abdominal Pain. Absent: Vomiting, Constipation, Diarrhea, Bright blood from rectum Genitourinary: Absent: Incontinent, Dysuria Musculoskeletal: Present: Joint Pain - arthritis in hands and knees Neurological: Absent: Headache Skin: Present: No Symptoms Reported Immunizations: IMMUNIZATION HX Immunizations Up to Date Yes History of Influenza Vaccine Yes Hx Pneumococcal Vaccination Yes Allergies/Adverse Reactions: Allergies Allergy/AdvReac Type Severity Reaction Status Date / Time fenofibrate,micronized AdvReac Intermediate chest pain Verified 10/05/18 18:20 [From [employer]] "heart hurts" IVP Dye AdvReac Intermediate swollen Uncoded 10/05/18 18:20 face Home Medications: HOME MEDICATIONS Nitroglycerin [Nitrostat] 0.4 mg SL Q5MIN PRN #1 btl 10/09/17 [Last Taken Unknown] allopurinol 300 mg tablet 300 mg PO DAILY #90 tab 05/07/18 [Last Taken 10/05/18 0800] carvedilol 6.25 mg tablet 6.25 mg PO BID #180 tab 05/07/18 [Last Taken 10/05/18 08:00] finasteride 5 mg tablet 5 mg PO DAILY #90 tab 05/07/18 [Last Taken 10/05/18 08:00] levothyroxine 75 mcg tablet 75 mcg PO 0700 #90 tab 05/07/18 [Last Taken 10/05/18 08:00] tamsulosin 0.4 mg capsule 0.4 mg PO DAILY@1800 #60 cap 05/07/18 [Last Taken 10/04/18 2000] cyanocobalamin (vitamin B-12) 1,000 mcg capsule 1,000 mcg PO DAILY #90 cap 06/16/18 [Last Taken 10/05/18 08:00] spironolactone 25 mg tablet 25 mg PO DAILY #60 tab 06/29/18 [Last Taken 10/05/18 12:00] isosorbide mononitrate ER 30 mg tablet,extended release 24 hr 30 mg PO DAILY #30 tab 07/13/18 [Last Taken 10/05/18 08:00] folic acid 1 mg tablet 1 mg PO DAILY #90 tab 08/04/18 [Last Taken 10/05/18 08:00] ferrous sulfate 325 mg (65 mg iron) tablet 325 mg PO DAILY #90 tab 08/05/18 [Last Taken 10/05/18 08:00] furosemide 40 mg tablet 40 mg PO DAILY #30 tab 08/31/18 [Last Taken 10/05/18 08:00] pantoprazole 40 mg tablet,delayed release 40 mg PO BID #60 tab 10/01/18 [Last Taken 10/05/18 08:00] Acetaminophen [Tylenol] 1,500 mg PO DAILY 10/05/18 [Last Taken 10/05/18 08:00] Acetaminophen/Diphenhydramine [Tylenol Pm Ex-Strength Caplet] 2 ea PO HS PRN 10/05/18 [Last Taken Unknown] Docusate Sodium 100 mg PO DAILY 10/05/18 [Last Taken 10/05/18 08:00] Potassium Chloride 10 meq .ROUTE BID 10/05/18 [Last Taken 10/04/18 21:00] Exam - Exam Vital Signs: Vital Signs - Last Taken Temp 36.9 C 10/06/18 06:44 Pulse 113 H 10/06/18 06:44 Resp 18 10/06/18 06:44 BP 104/59 10/06/18 06:44 Pulse Ox 95 10/06/18 06:44 Constitutional: Present: Alert, Oriented x3, Cooperative, Elderly Eye Exam: right eye: other - right pupil pale blue Respiratory: Present: normal breath sounds, no respiratory distress. Absent: crackles, wheezing Cardiovascular/Chest: Present: tachycardia, irregularly irregular Abdomen: Present: tender - decreased bowel sounds Extremity: Present: lower extremity edema - 2+ to the knees bilaterally Appearance: Present: appropriate insight, other Eye contact: Present: cooperative Diagnostic Studies: Abnormal Lab Results 10/05/18 10/05/18 10/06/18 Range/Units 18:55 18:55 05:31 WBC 18.3 H D (4.0-10.5) K/mm3 RBC 3.62 L 3.39 L (4.7-6.0) M/mm3 Hgb 10.5 L 9.8 L (13.5-18.0) gm/dL Hct 33.0 L 30.7 L (42.0-52.0) % MCHC 31.8 L 31.9 L (32-36) g/dl RDW 18.7 H 18.7 H (11.5-14.0) % Immature Gran % (Auto) 0.50 H 0.90 H (0.001-0.429) % Immature Gran # (Auto) 0.04 H 0.17 H (0.000-0.0310) K/mm3 Neutrophils % 87.5 H 85.5 H (42-75.0) % Lymphocytes % 8.7 L 8.6 L (20-51) % Neutrophils # 7.2 H 15.7 H (1.3-6.0) K/mm3 Lymphocytes # 0.72 L (1.5-3.5) k/mm3 Chloride (97-106) mmol/L Carbon Dioxide 18.0 L (24-32.6) mmol/L Anion Gap 18.1 H (6.8-13.8) mmol/L BUN 46 H D (6-23) mg/dL Creatinine 2.40 H D (0.4-1.4) mg/dL Est GFR (Non-Af Amer) 28 L D (60-130) mL/min Random Glucose 122 H (70-110) mg/dL Magnesium 0.8 L (1.2-2.8) mg/dL Total Bilirubin 2.0 H (0.0-1.1) mg/dL AST 96 H (0-48) U/L ALT (19-67) U/L Total Protein (6.2-8.2) gm/dL Albumin (3.4-5.0) gm/dl Lipase 451 H (73-393) U/L 10/06/18 Range/Units 05:31 WBC (4.0-10.5) K/mm3 RBC (4.7-6.0) M/mm3 Hgb (13.5-18.0) gm/dL Hct (42.0-52.0) % MCHC (32-36) g/dl RDW (11.5-14.0) % Immature Gran % (Auto) (0.001-0.429) % Immature Gran # (Auto) (0.000-0.0310) K/mm3 Neutrophils % (42-75.0) % Lymphocytes % (20-51) % Neutrophils # (1.3-6.0) K/mm3 Lymphocytes # (1.5-3.5) k/mm3 Chloride 108 H (97-106) mmol/L Carbon Dioxide 18.0 L (24-32.6) mmol/L Anion Gap 17.6 H (6.8-13.8) mmol/L BUN 46 H (6-23) mg/dL Creatinine 2.53 H (0.4-1.4) mg/dL Est GFR (Non-Af Amer) 26 L (60-130) mL/min Random Glucose (70-110) mg/dL Magnesium (1.2-2.8) mg/dL Total Bilirubin 3.6 H (0.0-1.1) mg/dL AST 114 H (0-48) U/L ALT 89 H (19-67) U/L Total Protein 6.1 L (6.2-8.2) gm/dL Albumin 2.9 L (3.4-5.0) gm/dl Lipase 453 H (73-393) U/L Laboratory Results WBC 18.3 K/mm3 (4.0-10.5) H D 10/06/18 05:31 RBC 3.39 M/mm3 (4.7-6.0) L 10/06/18 05:31 Hgb 9.8 gm/dL (13.5-18.0) L 10/06/18 05:31 Hct 30.7 % (42.0-52.0) L 10/06/18 05:31 MCV 90.6 fl (78-100) 10/06/18 05:31 MCH 28.9 pg (27-31) 10/06/18 05:31 MCHC 31.9 g/dl (32-36) L 10/06/18 05:31 RDW 18.7 % (11.5-14.0) H 10/06/18 05:31 Plt Count 167 K/mm3 (150-450) 10/06/18 05:31 MPV 10.6 fl (8-11.3) 10/06/18 05:31 Immature Gran % (Auto) 0.90 % (0.001-0.429) H 10/06/18 05:31 Immature Gran # (Auto) 0.17 K/mm3 (0.000-0.0310) H 10/06/18 05:31 85.5 % (42-75.0) H 10/06/18 05:31 8.6 % (20-51) L 10/06/18 05:31 4.7 % (0.0-9) 10/06/18 05:31 0.1 % (0.0-3.0) 10/06/18 05:31 0.2 % (0.0-1.0) 10/06/18 05:31 Nucleated RBC % 0.0 k/mm3 (0-1) 10/06/18 05:31 15.7 K/mm3 (1.3-6.0) H 10/06/18 05:31 1.57 k/mm3 (1.5-3.5) 10/06/18 05:31 0.9 k/mm3 (0.0-1.0) 10/06/18 05:31 0.0 k/mm3 (0.0-0.7) 10/06/18 05:31 Absolute Basophils 0.0 k/mm3 (0.0-0.1) 10/06/18 05:31 Sodium 139 mmol/L (132-142) 10/06/18 05:31 139 mmol/L (130-142) 10/06/18 05:31 Potassium 4.6 mmol/L (3.4-4.6) 10/06/18 05:31 Chloride 108 mmol/L (97-106) H 10/06/18 05:31 Carbon Dioxide 18.0 mmol/L (24-32.6) L 10/06/18 05:31 17.6 mmol/L (6.8-13.8) H 10/06/18 05:31 BUN 46 mg/dL (6-23) H 10/06/18 05:31 2.53 mg/dL (0.4-1.4) H 10/06/18 05:31 Est GFR (Non-Af Amer) 26 mL/min (60-130) L 10/06/18 05:31 18.2 (9.0-21.6) 10/06/18 05:31 97 mg/dL (70-110) 10/06/18 05:31 1.5 mmol/L (0.4-2.0) 10/05/18 18:55 Calcium 8.3 mg/dL (7.9-10.9) 10/06/18 05:31 Calcium Adj for Albumin 8.9 mg/dL (8.4-10.2) 10/06/18 05:31 Magnesium 0.8 mg/dL (1.2-2.8) L 10/05/18 18:55 3.6 mg/dL (0.0-1.1) H 10/06/18 05:31 AST 114 U/L (0-48) H 10/06/18 05:31 ALT 89 U/L (19-67) H 10/06/18 05:31 110 U/L (50-170) 10/06/18 05:31 6.1 gm/dL (6.2-8.2) L 10/06/18 05:31 2.9 gm/dl (3.4-5.0) L 10/06/18 05:31 453 U/L (73-393) H 10/06/18 05:31 Yellow 10/05/18 18:55 Clear (CLEAR) 10/05/18 18:55 5.5 pH (5.0-7.0) 10/05/18 18:55 Ur Specific [place] <=1.005 SP.GR. (1.005-1.030) 10/05/18 18:55 Negative mg/dL (NEGATIVE) 10/05/18 18:55 Negative mg/dL (NEGATIVE) 10/05/18 18:55 Negative mg/dL (NEGATIVE) 10/05/18 18:55 Negative /ul (NEGATIVE) 10/05/18 18:55 Negative (NEGATIVE) 10/05/18 18:55 Negative mg/dl (NEGATIVE) 10/05/18 18:55 Normal EU/dl (NORMAL) 10/05/18 18:55 Ur Leukocyte Esterase Negative /ul (NEGATIVE) 10/05/18 18:55 None seen /hpf (0-5) 10/05/18 18:55 None seen /hpf (0-5) 10/05/18 18:55 Ur Epithelial Cells 0-5 /hpf (0-5) 10/05/18 18:55 Trace (NONE) 10/05/18 18:55 No culture indicated 10/05/18 18:55 Assessment/Plan - Assessment/Plan (1) Pancreatitis Assessment: Lipase of 451, and his WBC is high this morning. Likely secondary to his biliary dyskinesia. His pain is better on my exam this morning than it was on admission yesterday. No obvious medication source, and he does not drink alcohol. He has lower extremity swelling, and am reluctant to administer additional IV fluids, but he has an EUSEBIO, and needs fluids for his pancreatitis. After discussing with Dr. Lee, may start a clear liquid diet. His heart rate was elevated this morning, and with worsening labs, there is concern for his pancreatitis also worsening. However he reports improvement in his symptoms from yesterday. Anticipate stay of greater than two midnights. Problem: Acute Qualifiers: Chronicity: acute Pancreatitis type: biliary Acute pancreatitis complication: unspecified Qualified Code(s): K85.10 - Biliary acute pancreatitis without necrosis or infection (2) Dyskinesia of gallbladder Assessment: CT showed gallbladder distention, and subsequent ultrasound confirmed distention. No obvious stone seen. After discussion with Dr. Lee, HIDA scan has been ordered. His bilirubin went up today from yesterday, raising suspicion for bile duct obstruction. Total and direct bilirubin pending. Problem: Acute (3) HTN (hypertension) Problem: Chronic Qualifiers: (4) CHF (congestive heart failure) Assessment: Echo report from September 2017 showed LVH, ejection fraction of 45 to 50%, septal hypokinesis, mild mitral and pulmonic valve regurgitation, elevated right ventricular systolic pressure to 33 mmHg, and diastolic dysfunction. Will resume home 40 mg Lasix. Problem: Chronic Qualifiers: Heart failure type: diastolic Heart failure chronicity: chronic Qualified Code(s): I50.32 - Chronic diastolic (congestive) heart failure (5) Chronic kidney disease (CKD) stage G1/A2, glomerular filtration rate (GFR) equal to or greater than 90 mL/min/1.73 square meter and albuminuria creatinine ratio between 30-299 mg/g Assessment: He has an acute on chronic EUSEBIO currently, but has lower extremity swelling. Will restart po intake as soon as workup is completed. Repeat CMP in the am. Will need to administer fluids if his kidney injury worsens. Problem: Chronic (6) Atrial fibrillation Assessment: Continue home coreg. He declines anticoagulation due to previous GI bleeds. Problem: Chronic (7) Crohns disease Problem: Chronic Qualifiers:
[2018-10-06] MEDS ORDERED: PANTOPRAZOLE SODIUM 40 MG TABLET.EC PO SCH (09:00)
[2018-10-06] MEDS ORDERED: ACETAMINOPHEN 500 MG TABLET PO SCH (09:00)
[2018-10-06] MEDS ORDERED: FINASTERIDE 5 MG TABLET PO SCH (09:00)
[2018-10-06] MEDS ORDERED: ISOSORBIDE MONONITRATE 30 MG TAB.SR.24H PO SCH (09:00)
[2018-10-06] MEDS ORDERED: CARVEDILOL 6.25 MG TABLET PO SCH (09:00)
[2018-10-06] MEDS ORDERED: SPIRONOLACTONE 25 MG TABLET PO SCH (09:00)
[2018-10-06] MEDS ORDERED: DOCUSATE SODIUM 100 MG CAPSULE PO SCH (09:00)
[2018-10-06] MEDS ORDERED: FUROSEMIDE 40 MG TABLET PO SCH (09:00)
[2018-10-06] MEDS: HYDROmorphone HCL 1 MG/ML DISP.SYRIN IV PRN ×2 (09:10→15:20)
[2018-10-06] MEDS ORDERED: MAGNESIUM OXIDE 400 MG TABLET PO SCH (13:00)
[2018-10-06 15:39] LABS: Bilirubin Direct 4.1 mg/dL (0.0-0.3)
[2018-10-06 15:40] LABS: Troponin I 0.059 ng/mL (0.00-0.10)
[2018-10-06] MEDS ORDERED: CEFOXITIN SODIUM 2 GM in DEXTROSE 5 % IN WATER 100 ML IV SCH ×2 (17:00)
[2018-10-06] MEDS ORDERED: NORMAL SALINE 1,000 ML IV PRN (17:04)
--- NOTE | 2018-10-06 17:06 | DS ---
Transfer Discharge Summary - Diagnosis(s)/Problems (1) Cholestasis Problem: Acute (2) Pancreatitis Problem: Acute (3) Dyskinesia of gallbladder Problem: Acute (4) HTN (hypertension) Problem: Chronic (5) CHF (congestive heart failure) Problem: Chronic (6) Chronic kidney disease (CKD) stage G1/A2, glomerular filtration rate (GFR) equal to or greater than 90 mL/min/1.73 square meter and albuminuria creatinine ratio between 30-299 mg/g Problem: Chronic (7) Atrial fibrillation Problem: Chronic (8) Crohns disease Problem: Chronic - Course Description of Stay: Patient with past medical history of Crohn's, A. fib, hypertension presented to the ER after several hours of mid abdominal pain. He woke up early the morning of admission not quite feeling right, but felt better after he had coffee and a sweet roll for breakfast. He ate lunch, and developed some mid abdominal pain and bloating. Denied vomiting or diarrhea. He does have Crohn's at baseline, but this has not bothered him in quite some time. He has been having regular bowel movements with a stool softener. No recent medication changes, and no exposure to sick contacts. He has opted to decline anticoagulation after having several GI bleeds. In the ED, his labwork showed signs of pancreatitis, with lipase of 451. AST elevated to 96, but normal ALT and akl phos. WBC was normal at 8.3. He did ng ve an elevation of his creatinine to 2.4. He had CKD at baseline, with a creatinine as low as 1.76 in May of this year. He was NPO pending gallbladder US this morning. He received dilaudid and one L NS overnight. This morning, he feels better, but WBC has increased to 18.3. Creatinine remains elevated at 2.53. He was not given his home meds, and his HR increased to the 110's. His home meds were restarted this morning, allowing sips with meds. His US showed "1. Distended gallbladder with mildly thickened gallbladder wall relative to the gallbladder distention, and sludge. No definite signs of gallstones. Trace amount of fluid adjacent to the liver/gallbladder. These findings are nonspecific. Consider acute acalculous cholecystitis. Other considerations also include secondary gallbladder wall prominence and fluid related to primary liver process/hepatitis, versus hepatic congestion related to congestive heart failure. Clinical correlation is advised. Consider nuclear medicine HIDA scan. 2. No evidence for abnormal extrahepatic ductal dilation." Case discussed with our surgeon, and HIDA scan was ordered, which showed "1. Abnormal retention of radiotracer in the liver, with no transit into the biliary system even after 120 minutes of imaging. Differential diagnosis includes both obstructive (e.g. choledocholithiasis, obstructing bile duct tumor) and nono bstructive (e.g. hepatocellular dysfunction, hepatitis, drug toxicity) cholestasis. 2. Nonvisualization of the gallbladder is likely secondary due to delayed transit of the radiotracer into the bile ducts, but ultimately potential cystic duct obstruction cannot be entirely ruled out by these images." It was felt he needed an ERCP, and transfer process was started to the [facility]. The case was discussed with the physician there, who asked for cefotetan to be started, which is not available at our facility. In its place, cefoxitin was started, 2 mg q6h. He had fairly significant swelling of his lower legs the morning of 10/06/18. IV fluids were held pending workup, with the intention of starting a clear liquid diet. The HIDA scan resulted after 4:00 pm. When checking on the patient and updating him on the transfer, he appeared dry on exam, so gentle rehydration was started, 140 ml/hr NS. Procedures Performed: see notes below - HIDA scan - Results and Findings Results and Findings: Laboratory Results - last 24 hr 10/05/18 10/05/18 10/05/18 18:55 18:55 18:55 WBC 8.3 RBC 3.62 L Hgb 10.5 L Hct 33.0 L MCV 91.2 MCH 29.0 MCHC 31.8 L RDW 18.7 H Plt Count 173 MPV 10.5 Immature Gran % (Auto) 0.50 H Immature Gran # (Auto) 0.04 H Neutrophils % 87.5 H Lymphocytes % 8.7 L Monocytes % 1.9 Eosinophils % 1.0 Basophils % 0.4 Nucleated RBC % 0.0 Neutrophils # 7.2 H Lymphocytes # 0.72 L Monocytes # 0.2 Eosinophils # 0.1 Absolute Basophils 0.0 Sodium 137 Plasma Sodium 137 Potassium 4.1 D Chloride 105 Carbon Dioxide 18.0 L Anion Gap 18.1 H BUN 46 H D Creatinine 2.40 H D Est GFR (Non-Af Amer) 28 L D BUN/Creatinine Ratio 19.2 Random Glucose 122 H Lactic Acid, Venous 1.5 Calcium 8.9 Calcium Adj for Albumin 9.1 Magnesium 0.8 L Total Bilirubin 2.0 H Direct Bilirubin AST 96 H ALT 47 Alkaline Phosphatase 134 Troponin I Total Protein 6.8 Albumin 3.4 Lipase 451 H Urine Color Urine Appearance Urine pH Ur Specific [place] Urine Protein Urine Glucose (UA) Urine Ketones Urine Blood Urine Nitrate Urine Bilirubin Urine Urobilinogen Ur Leukocyte Esterase Urine RBC Urine WBC Ur Epithelial Cells Urine Bacteria Urine Culture Comments 10/05/18 10/06/18 10/06/18 18:55 05:00 05:31 WBC 18.3 H D RBC 3.39 L Hgb 9.8 L Hct 30.7 L MCV 90.6 MCH 28.9 MCHC 31.9 L RDW 18.7 H Plt Count 167 MPV 10.6 Immature Gran % (Auto) 0.90 H Immature Gran # (Auto) 0.17 H Neutrophils % 85.5 H Lymphocytes % 8.6 L Monocytes % 4.7 Eosinophils % 0.1 Basophils % 0.2 Nucleated RBC % 0.0 Neutrophils # 15.7 H Lymphocytes # 1.57 Monocytes # 0.9 Eosinophils # 0.0 Absolute Basophils 0.0 Sodium Plasma Sodium Potassium Chloride Carbon Dioxide Anion Gap BUN Creatinine Est GFR (Non-Af Amer) BUN/Creatinine Ratio Random Glucose Lactic Acid, Venous Calcium Calcium Adj for Albumin Magnesium Total Bilirubin Direct Bilirubin AST ALT Alkaline Phosphatase Troponin I 0.053 Total Protein Albumin Lipase Urine Color Yellow Urine Appearance Clear Urine pH 5.5 Ur Specific [place] <=1.005 Urine Protein Negative Urine Glucose (UA) Negative Urine Ketones Negative Urine Blood Negative Urine Nitrate Negative Urine Bilirubin Negative Urine Urobilinogen Normal Ur Leukocyte Esterase Negative Urine RBC None seen Urine WBC None seen Ur Epithelial Cells 0-5 Urine Bacteria Trace Urine Culture Comments No culture indicated 10/06/18 10/06/18 05:31 15:15 WBC RBC Hgb Hct MCV MCH MCHC RDW Plt Count MPV Immature Gran % (Auto) Immature Gran # (Auto) Neutrophils % Lymphocytes % Monocytes % Eosinophils % Basophils % Nucleated RBC % Neutrophils # Lymphocytes # Monocytes # Eosinophils # Absolute Basophils Sodium 139 Plasma Sodium 139 Potassium 4.6 Chloride 108 H Carbon Dioxide 18.0 L Anion Gap 17.6 H BUN 46 H Creatinine 2.53 H Est GFR (Non-Af Amer) 26 L BUN/Creatinine Ratio 18.2 Random Glucose 97 Lactic Acid, Venous Calcium 8.3 Calcium Adj for Albumin 8.9 Magnesium Total Bilirubin 3.6 H Direct Bilirubin 4.1 H AST 114 H ALT 89 H Alkaline Phosphatase 110 Troponin I 0.059 Total Protein 6.1 L Albumin 2.9 L Lipase 453 H Urine Color Urine Appearance Urine pH Ur Specific [place] Urine Protein Urine Glucose (UA) Urine Ketones Urine Blood Urine Nitrate Urine Bilirubin Urine Urobilinogen Ur Leukocyte Esterase Urine RBC Urine WBC Ur Epithelial Cells Urine Bacteria Urine Culture Comments - Medications Medications: Active Medications Acetaminophen (Tylenol) 1,500 mg PO DAILY [facility] Stop: 11/05/18 09:01 Last Admin: 10/06/18 08:40 Dose: Not Given Documented by: Carvedilol (Coreg) 6.25 mg PO BID [facility] Stop: 11/05/18 09:01 Last Admin: 10/06/18 08:38 Dose: 6.25 mg Documented by: Docusate Sodium (Colace) 100 mg PO DAILY [facility] Stop: 11/05/18 09:01 Last Admin: 10/06/18 08:38 Dose: 100 mg Documented by: Finasteride (Proscar) 5 mg PO DAILY [facility] Stop: 11/05/18 09:01 Last Admin: 10/06/18 08:38 Dose: 5 mg Documented by: Furosemide (Lasix) 40 mg PO DAILY [facility] Stop: 11/05/18 09:01 Last Admin: 10/06/18 08:38 Dose: 40 mg Documented by: Hydromorphone HCl (Dilaudid) 1 mg IV Q4H PRN PRN Reason: Severe Pain (pain scale 7-10) Stop: 11/04/18 22:32 Last Admin: 10/06/18 15:20 Dose: 1 mg Documented by: Isosorbide Mononitrate (Imdur) 30 mg PO DAILY [facility] Stop: 11/05/18 09:01 Last Admin: 10/06/18 08:38 Dose: 30 mg Documented by: Magnesium Oxide (Mag-Ox 400) 400 mg PO DAILY [facility] Stop: 11/05/18 13:01 Last Admin: 10/06/18 15:21 Dose: 400 mg Documented by: Pantoprazole Sodium (Protonix) 40 mg PO BID@0700,2100 [facility] Stop: 11/05/18 09:01 Last Admin: 10/06/18 08:38 Dose: 40 mg Documented by: Spironolactone (Aldactone) 25 mg PO DAILY [facility] Stop: 11/05/18 09:01 Last Admin: 10/06/18 08:38 Dose: 25 mg Documented by: Discontinued Medications Sodium Chloride (Sodium Chloride 0.9%) 1,000 mls @ 125 mls/hr IV .Q8H ONE Stop: 10/06/18 02:32 Last Infusion: 10/06/18 02:32 Dose: 0 mls/hr Documented by: Pantoprazole Sodium 40 mg/ (Sodium Chloride) 100 mls @ 400 mls/hr IV BID [facility] Stop: 11/04/18 22:46 Last Infusion: 10/05/18 23:22 Dose: Infused Documented by: Sodium Chloride (Sodium Chloride 0.9%) 1,000 mls @ 125 mls/hr IV .Q8H ONE Stop: 10/06/18 02:32 Last Admin: 10/06/18 02:42 Dose: Not Given Documented by: Morphine Sulfate (Morphine Sulfate) 4 mg IV ONCE ONE Stop: 10/05/18 18:34 Last Admin: 10/05/18 18:43 Dose: 4 mg Documented by: Ondansetron HCl (Zofran) 4 mg IV ONCE ONE Stop: 10/05/18 18:34 Last Admin: 10/05/18 18:43 Dose: 4 mg Documented by: - Disposition Disposition: Short Term Hospital Inpatient Condition: Fair Discharge Date: 10/06/18
[2018-10-06] MEDS ORDERED: TAMSULOSIN HCL 0.4 MG CAP.SR.24H PO SCH (18:00)
--- NOTE | 2018-10-06 18:17 | PN ---
Dictated Progress Note - Date and Time Seen: Date: 10/06/18 Time: 18:08 - Progress Note Narrative: Vital Signs - Last Taken Temp 37.3 C 10/06/18 14:56 Pulse 107 H 10/06/18 14:56 Resp 18 10/06/18 14:56 BP 120/65 10/06/18 14:56 Pulse Ox 95 10/06/18 14:56 Abnormal/Pending Laboratory Last 24 HRS 10/06/18 10/06/18 10/06/18 15:15 05:31 05:31 WBC 18.3 H D RBC 3.39 L Hgb 9.8 L Hct 30.7 L MCHC 31.9 L RDW 18.7 H Immature Gran % (Auto) 0.90 H Immature Gran # (Auto) 0.17 H Neutrophils % 85.5 H Lymphocytes % 8.6 L Neutrophils # 15.7 H Lymphocytes # Chloride 108 H Carbon Dioxide 18.0 L Anion Gap 17.6 H BUN 46 H Creatinine 2.53 H Est GFR (Non-Af Amer) 26 L Random Glucose Magnesium Total Bilirubin 3.6 H Direct Bilirubin 4.1 H AST 114 H ALT 89 H Total Protein 6.1 L Albumin 2.9 L Lipase 453 H 10/05/18 10/05/18 18:55 18:55 WBC RBC 3.62 L Hgb 10.5 L Hct 33.0 L MCHC 31.8 L RDW 18.7 H Immature Gran % (Auto) 0.50 H Immature Gran # (Auto) 0.04 H Neutrophils % 87.5 H Lymphocytes % 8.7 L Neutrophils # 7.2 H Lymphocytes # 0.72 L Chloride Carbon Dioxide 18.0 L Anion Gap 18.1 H BUN 46 H D Creatinine 2.40 H D Est GFR (Non-Af Amer) 28 L D Random Glucose 122 H Magnesium 0.8 L Total Bilirubin 2.0 H Direct Bilirubin AST 96 H ALT Total Protein Albumin Lipase 451 H I was consulted by phone this morning. Although the initial picture last night was that of pancreatitis or cholecystitis, the patient's WBC's, lipase, and Bilirubin have elevated. The GB U/S suggests sludge and some brenda-cholecystic fluid. The elevated bilirubin is concerning for CBD obstruction which could also account for the pancreatitis. Recommended to Dr Ramirez that HIDA scan be obtained to differentiate between cystic duct obstruction (cholecystitis) vs CBD obstruction I have been in the OR and viewed the images when we finished. HIDA scan shows delay in radionuclide entering hepatic/CBD---this would suggest need for ERCP. Discussed with Dr Ramirez and recommended transfer to the [facility] for evaluation there and possible ERCP.
[2018-10-06 20:14] VITALS: BP 112/57
[2018-10-07] MEDS ORDERED: LEVOTHYROXINE SODIUM 75 MCG TABLET PO SCH (07:00)
== END 2018-10-06 19:45 | disposition short-term general hospital (02) ==
LOC: MS 18:10 → ER 18:10
PROVIDERS: ADMIT Family Medicine; ATTEND Family Medicine
DX: K85.90 Acute pancreatitis without necrosis or infection, unspecified; I10 Essential (primary) hypertension; I48.91 Unspecified atrial fibrillation; N28.89 Other specified disorders of kidney and ureter; K83.1 Obstruction of bile duct; I50.9 Heart failure, unspecified; K50.90 Crohn's disease, unspecified, without complications
CPT/HCPCS: 36415; 74176; 76705; 78226; 80053; 81001; 82248; 83605; 83690; 83735; 84484; 85025; 93005; 96361; 96365; 96375; 99285; A9537; G0378; J2405